=== PATIENT | male | born 1970 | race African-American/Black ===

== ENCOUNTER 2017-08-13 22:06 | Emergency (ER) | payer MEDICAID, SELFPAY ==
[2017-08-13 22:07] VITALS: BP 159/104; PULSE 101; RESP 24; TEMP 36.4; O2SAT 95; BMI 29.1
--- NOTE | 2017-08-13 22:13 | NURSING ---
CALLED FOR EKG
--- NOTE | 2017-08-13 22:20 | EKG12_ITS ---
Test Reason : Blood Pressure : / mmHG Vent. Rate : 087 BPM Atrial Rate : 087 BPM P-R Int : 130 ms QRS Dur : 088 ms QT Int : 422 ms P-R-T Axes : 055 009 048 degrees QTc Int : 507 ms Normal sinus rhythm Biatrial enlargement Left ventricular hypertrophy Prolonged QT Abnormal ECG Confirmed by KARAN HART, TALIB ([id number]), order editor JOLENE KING ([id number]) on 08/14/2017 1:55:32 PM Referred By: JOSEP Confirmed By:TALIB RUSSO MD
[2017-08-13 22:30] VITALS: BP 137/109; PULSE 89; RESP 18; O2SAT 98
--- NOTE | 2017-08-13 22:50 | RAD_ITS ---
STUDY: X-RAY CHEST REASON FOR EXAM: Male, 46 years old. Asthma attack TECHNIQUE: PA and lateral COMPARISON: 03/16/2014 FINDINGS: Lungs are expanded. There are mild chronic appearing fibrotic changes. There are NO active infiltrates. There is NO pleural effusion. There is NO pneumothorax. Normal size heart. Normal mediastinum and sydnee. Normal visualized pulmonary arteries. Normal visualized aortic arch and descending thoracic aorta. Normal visualized thoracic spine. Normal visualized ribs, clavicles, and shoulders. There is no demonstrated abnormality of the visualized soft tissue structures of the upper abdomen. RAD/Chest PA and Lateral IMPRESSION: Lungs are expanded. There are mild chronic appearing fibrotic changes. There are NO active infiltrates. There is NO pleural effusion. There is NO pneumothorax. Normal size heart. Electronically Signed: Derrick Rosado MD at 0:18 EST , Service support ,
[2017-08-13] MEDS: Ipratropium/Albuterol Sulfate 3 ML AMPUL.NEB INHALATION (23:17)
[2017-08-13] MEDS: Albuterol 2.5 MG/3 ML VIAL.NEB. INHALATION ×2 (23:17)
[2017-08-13 23:18] VITALS: PULSE 103; RESP 18
[2017-08-13 23:45] VITALS: PULSE 99; RESP 16
[2017-08-14 00:06] VITALS: BP 154/113; PULSE 83; RESP 20; O2SAT 100
[2017-08-14] MEDS: Terbutaline 1 MG/ML Vial 0.25 MG SC (01:12)
[2017-08-14] MEDS: Albuterol 2.5 MG/3 ML VIAL.NEB. INHALATION ×2 (01:13)
[2017-08-14 01:33] VITALS: PULSE 102; RESP 16
--- NOTE | 2017-08-14 01:41 | ED.DCSUM_ITS ---
- ER Visit Summary Date of Service: 08/14/17 Chief Complaint: Shortness of breath History of Present Illness: The patient is a 46 M presenting with 2-3 days of occasionally productive cough, rhinorrhea, chest tightness and wheezing. He has a long-standing history of asthma but has rare flareups, mainly when he gets ill. States he has not had a flareup like this since he was a kid. Denies any fevers or myalgias or headache. No GI symptoms. Has no inhalers at home. Physical Examination: No acute distress, afebrile, not hypoxic. Slight tachycardia. Slight expiratory wheezes in the bases, no rales rhonchi. No respiratory distress. Heart is regular. No cervical lymphadenopathy. TMs normal bilaterally. Posterior oropharynx is clear. No rashes. No pedal edema. Test Results: Chest x-ray normal. Influenza negative. Emergency Department Course and Treatment: After an initial round of nebulizer treatments, he felt slightly better. His wheezing is improved. He was given another couple albuterol treatments as well as an injection of terbutaline 0.25 mg subcutaneous. On reevaluation he is much more comfortable and is able to sleep. They are comfortable going home. Given prednisone 40 mg and a prescription for a short burst as well as an MDI. Treatment Plan: Supportive for what is likely viral in etiology Disposition: Discharge home Impression: Acute asthmatic bronchitis This note was generated with [employer] dictation software. It may contain incorrect words, spelling, and punctuation that were not noted in review of the chart prior to signing ED Disposition - Plan for ED Patient: Disposition: Home or Assisted Living Chief Complaint: Asthma Instructions: ED Bronchitis Asthmatic Prescriptions: Albuterol Inhaler [Ventolin Hfa] 1 - 2 puff INHALATION Q4H PRN PRN #1 inhaler PRN Reason: Wheezing Prednisone [Deltasone] 40 mg PO DAILY #10 tab Referrals: [facility] Doctor,Out of [Primary Care Provider] - 1 Week if not improving
[2017-08-14 01:55] VITALS: BP 145/97; PULSE 88; RESP 20; O2SAT 99
== END 2017-08-14 01:56 | disposition home or self-care (01) ==
PROVIDERS: Emergency Provider Emergency Medicine
DX: J45.909 Unspecified asthma, uncomplicated (principal)
CPT/HCPCS: 71046; 87804; 93005; 94640; 99283

== ENCOUNTER 2017-08-22 00:23 | Emergency (ER) | payer MEDICAID, SELFPAY ==
[2017-08-22] VITALS (7 sets, daily range): BP systolic 120–141; BP diastolic 89–99; PULSE 91–112; RESP 12–30; TEMP 36.6–36.7; O2SAT 98–100; BMI 29.8
--- NOTE | 2017-08-22 00:48 | RAD_ITS ---
STUDY: X-RAY CHEST REASON FOR EXAM: Male, 46 years old. SOB TECHNIQUE: Single frontal view of the chest. 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 There is no demonstrated pleural abnormality. Stable cardiac silhouette. Normal mediastinum and sydnee. Normal visualized pulmonary arteries. Normal visualized aortic arch and descending thoracic aorta. Normal visualized thoracic spine. Lumbar fusions. Normal visualized ribs, clavicles, and shoulders. There is no demonstrated abnormality of the visualized soft tissue structures of the upper abdomen. 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 Electronically Signed: Zana Baldwin MD at 1:56 EST Tel , Service support ,
--- NOTE | 2017-08-22 00:48 | EKG12_ITS ---
Test Reason : SOB Blood Pressure : / mmHG Vent. Rate : 092 BPM Atrial Rate : 092 BPM P-R Int : 126 ms QRS Dur : 098 ms QT Int : 382 ms P-R-T Axes : 052 002 065 degrees QTc Int : 472 ms Normal sinus rhythm Left ventricular hypertrophy Nonspecific T wave abnormality Prolonged QT Abnormal ECG Confirmed by TASHI LARKIN ([id number]), newspaper copy editor JOLENE KING ([id number]) on 08/23/2017 2:51:36 PM Referred By: AMBER Confirmed By:TASHI LARKIN
[2017-08-22 01:09] LABS: Absolute Lymphocyte Count 2.65 X10^3/ul (0.83-4.51); Absolute Neutrophil Count 3.6 X10^3/uL (2.0-7.7); Basophil# 0.07 X10^3/uL; Basophil% 0.9 % (0-1); Eosinophils% 2.7 % (0-5); Hematocrit 42.6 % (40-54); Hemoglobin 14.3 g/dl (13.0-16.5); Lymphocyte # 2.65 X10^3/ul (4.0); Lymphocyte % 35.5 % (19-41); Mean Corp Hgb Conc 33.6 g/gl (32-36); Mean Corpuscular Hgb 28.8 pg (27.0-32.0); Mean Corpuscular Volume 85.7 fL (80-94); Mean Platelet Vol. 10.7 fl (6.2-12.0); Monocyte% 12.1 % (0-10); Neutrophil # 3.61 X10^3/uL (2.7-7.7); Neutrophil % 48.4 % (47-70); Platelet Count 265 K/mm3 (150-450); RBC Distribution Width CV 14.9 % (11.6-14.6); RBC Distribution Width SD 46.3 fl (35.1-43.9); Red Blood Count 4.97 M/mm3 (4.6-6.2); White Blood Count 7.5 K/mm3 (4.4-11.0)
[2017-08-22 01:11] LABS: POSITIVE COUNT NO; POSITIVE DIFFERENTIAL NO; POSITIVE MORPHOLOGY NO
[2017-08-22] MEDS: Ipratropium/Albuterol Sulfate 3 ML AMPUL.NEB INHALATION (01:13)
[2017-08-22 01:21] LABS: D-Dimer Quantitative (DVT/PE) 0.38 FEU/ug/m (0.27-0.49)
[2017-08-22 01:29] LABS: Anion Gap 8 (5-15); BUN 13 mg/dL (7-18); Calcium,Total 8.8 mg/dL (8.5-10.1); Chloride 106 mmol/L (98-107); EST Glomerular Filtration Rate 85 mL/min (>60); Est Glom Filt Rate - Afr Amer 103 mL/min (>60); Estimated Creatinine Clearance 100.23 ml/min; Glucose 97 mg/dL (74-106); Potassium 3.8 mmol/L (3.5-5.1); Sodium Level 140 mmol/L (136-145)
[2017-08-22] MEDS: MethylPREDNISolone 125 MG/2 ML Vial IV (02:26)
--- NOTE | 2017-08-22 03:01 | ED.VISSUMM ---
- ER Visit Summary Date of Service: 08/22/17 Chief Complaint: Dyspnea History of Present Illness: The patient is a 46 M worsening dyspnea over the past couple days. History of asthma. States was treated for asthma exacerbation finish his steroids when symptoms recurred. Mild productive cough. Complains of chills and sweats. States mild blood with cough today. No recent travel, surgeries, or immobilizations. No history of PE or DVT. Tobacco history. Denies headache or myalgias. Denies chest pain. Physical Examination: General: Alert and oriented ?3, no acute distress HEENT: Normocephalic, atraumatic. Moist mucosa membranes Neck: supple, nontender. Cardiovascular: Regular tachycardic rate and rhythm, no murmurs Respiratory: Diminished breath sounds, no respiratory distress Abdomen: Soft, nontender, nondistended Extremities: Nontender, no edema, pulses intact ?4 Neuro: no focal neurological deficits. Test Results: EKG: Sinus rate of 92, no ST changes. Isolated T-wave inversion in aVL. Emergency Department Course and Treatment: Patient tachycardic on exam, EKG was normal. Chest x-ray negative. Patient's recurrent worsening symptoms and complaints of hemoptysis with tachycardia, low risk Wells criteria for PE. D-dimer obtained which was negative. Basic labs and troponin negative. He is given aerosol treatments. Solu-Medrol started. Vitals are stable pulse ox in the 90s. He is ambulated maintaining pulse ox to 96%. Discussed with patient this time will treat for asthma exacerbation with steroid taper due to recent steroid management. I discussed tobacco cessation with the patient. He will monitor symptoms and follow-up with his PCP. He will return if any worsening symptoms. Treatment Plan: [] Disposition: Discharge Impression: 1. Asthma exacerbation 2. Upper respiratory infection This note was generated with [employer] dictation software. It may contain incorrect words, spelling, and punctuation that were not noted in review of the chart prior to signing ED Disposition - Plan for ED Patient: Disposition: Home or Assisted Living Chief Complaint: Shortness of Breath Diagnosis: Asthma exacerbation, Acute upper respiratory infection Instructions: ED Upper Resp Infec No Abx Tx, Understanding Asthma Triggers Prescriptions: Prednisone [Deltasone] 20 mg PO DAILY #19 tablet Referrals: [facility] Doctor,Out of [Primary Care Provider] - Additional Instructions: Follow-up with Dr. Veras in 3 days.
--- NOTE | 2017-08-22 03:07 | ED.DCSUM_ITS ---
- ER Visit Summary Date of Service: 08/22/17 Chief Complaint: Dyspnea History of Present Illness: The patient is a 46 M worsening dyspnea over the past couple days. History of asthma. States was treated for asthma exacerbation finish his steroids when symptoms recurred. Mild productive cough. Complains of chills and sweats. States mild blood with cough today. No recent travel, surgeries, or immobilizations. No history of PE or DVT. Tobacco history. Denies headache or myalgias. Denies chest pain. Physical Examination: General: Alert and oriented ?3, no acute distress HEENT: Normocephalic, atraumatic. Moist mucosa membranes Neck: supple, nontender. Cardiovascular: Regular tachycardic rate and rhythm, no murmurs Respiratory: Diminished breath sounds, no respiratory distress Abdomen: Soft, nontender, nondistended Extremities: Nontender, no edema, pulses intact ?4 Neuro: no focal neurological deficits. Test Results: EKG: Sinus rate of 92, no ST changes. Isolated T-wave inversion in aVL. Emergency Department Course and Treatment: Patient tachycardic on exam, EKG was normal. Chest x-ray negative. Patient's recurrent worsening symptoms and complaints of hemoptysis with tachycardia, low risk Wells criteria for PE. D- dimer obtained which was negative. Basic labs and troponin negative. He is given aerosol treatments. Solu-Medrol started. Vitals are stable pulse ox in the 90s. He is ambulated maintaining pulse ox to 96%. Discussed with patient this time will treat for asthma exacerbation with steroid taper due to recent steroid management. I discussed tobacco cessation with the patient. He will monitor symptoms and follow-up with his PCP. He will return if any worsening symptoms. Treatment Plan: [] Disposition: Discharge Impression: 1. Asthma exacerbation 2. Upper respiratory infection This note was generated with [employer] dictation software. It may contain incorrect words, spelling, and punctuation that were not noted in review of the chart prior to signing ED Disposition - Plan for ED Patient: Disposition: Home or Assisted Living Chief Complaint: Shortness of Breath Diagnosis: Asthma exacerbation, Acute upper respiratory infection Instructions: ED Upper Resp Infec No Abx Tx, Understanding Asthma Triggers Prescriptions: Prednisone [Deltasone] 20 mg PO DAILY #19 tablet Referrals: [facility] Doctor,Out of [Primary Care Provider] - Additional Instructions: Follow-up with Dr. Veras in 3 days.
== END 2017-08-22 03:25 | disposition home or self-care (01) ==
PROVIDERS: Emergency Provider Emergency Medicine
DX: J45.901 Unspecified asthma with (acute) exacerbation (principal); J06.9 Acute upper respiratory infection, unspecified; Z72.0 Tobacco use
CPT/HCPCS: 71045; 80048; 84484; 85025; 85379; 93005; 94640; 96374; 99284

== ENCOUNTER 2017-09-03 16:51 | Inpatient (IN) | payer MEDICAID, SELFPAY ==
[2017-09-03] VITALS (7 sets, daily range): BP systolic 136–148; BP diastolic 72–93; PULSE 104–122; RESP 16–18; TEMP 36.7–37.2; O2SAT 98–100; BMI 30.7; BMI 29.9
--- NOTE | 2017-09-03 16:59 | RAD_ITS ---
XR Chest 1 View INDICATION: chest pain COMPARISON: None FINDINGS: Heart size and pulmonary vascularity are within normal limits. The lungs are clear without evidence of airspace consolidation or pleural effusion. The osseous structures are grossly unremarkable. RAD/Chest 1 View (Portable) IMPRESSION: No radiographic evidence of acute intrathoracic disease. at 1756 Reported and signed by: Tammy Leahy MD Electronically Signed: Tammy Leahy MD at 16:55 EST Tel , Service support ,
--- NOTE | 2017-09-03 16:59 | EKG12_ITS ---
Test Reason : CHEST PAIN Blood Pressure : / mmHG Vent. Rate : 104 BPM Atrial Rate : 104 BPM P-R Int : 130 ms QRS Dur : 096 ms QT Int : 380 ms P-R-T Axes : 054 016 032 degrees QTc Int : 499 ms Sinus tachycardia Biatrial enlargement Left ventricular hypertrophy Nonspecific T wave abnormality Abnormal ECG Confirmed by MARITZA HART, ALEAH ([id number]), publication editor JOLENE KING ([id number]) on 09/04/2017 2:39:21 PM Referred By: SHAKEEL Confirmed By:ALEAH SALAS MD
[2017-09-03 17:27] LABS: Absolute Lymphocyte Count 2.85 X10^3/ul (0.83-4.51); Absolute Neutrophil Count 4.8 X10^3/uL (2.0-7.7); Basophil# 0.01 X10^3/uL; Basophil% 0.1 % (0-1); Eosinophil# 0.07 X10^3/uL; Eosinophils% 0.8 % (0-5); Hematocrit 43.4 % (40-54); Hemoglobin 14.5 g/dl (13.0-16.5); Lymphocyte # 2.85 X10^3/ul (4.0); Lymphocyte % 33.6 % (19-41); Mean Corp Hgb Conc 33.4 g/gl (32-36); Mean Corpuscular Hgb 28.5 pg (27.0-32.0); Mean Corpuscular Volume 85.4 fL (80-94); Mean Platelet Vol. 9.9 fl (6.2-12.0); Monocyte# 0.73 X10^3/uL; Monocyte% 8.6 % (0-10); Neutrophil % 56.7 % (47-70); Platelet Count 247 K/mm3 (150-450); RBC Distribution Width CV 15.2 % (11.6-14.6); RBC Distribution Width SD 47.9 fl (35.1-43.9); Red Blood Count 5.08 M/mm3 (4.6-6.2); White Blood Count 8.5 K/mm3 (4.4-11.0)
[2017-09-03 17:30] LABS: POSITIVE COUNT NO; POSITIVE DIFFERENTIAL NO; POSITIVE MORPHOLOGY NO
--- NOTE | 2017-09-03 17:45 | ED.DCSUM_ITS ---
- ER Visit Summary Date of Service: 09/03/17 Chief Complaint: Shortness of breath History of Present Illness: The patient is a 46 M significant past medical history. Patient states she has been short of breath primarily lying flat for the last 2-3 weeks. He is also had a cough. He was seen by Dr. Garcia and sent over to see Dr. Mercedes who did a echocardiogram today in his office called the ER and explained to me the patient had a cardiomyopathy and significant mitral insufficiency mitral regurgitation. He also had mild failure and had an ejection fraction of only 30%. Patient states he has never noted any cardiac history in the past he was treated for hypertension and is also he had a history of asthma in the past. He denies hemoptysis. He denies any leg swelling. He has shortness of breath worse lying flat or with exertion. Physical Examination: No aged male. Vital signs stable pulse ox 90% room air no signs of hypoxia he is mildly tachycardic at 104. He does not look septic or toxic. Sitting up in bed is in no distress. H EENT exam is unremarkable. Neck nontender no JVD. Lungs clear to auscultation bilaterally. Currently I do not hear rales rhonchi or wheezing. Heart tachycardic about 100-110 I do not appreciate a murmur at this time. Abdomen is soft and nontender. Normal bowel sounds no peritoneal signs. He is moving all 4 extremities. Neurovascularly intact. There is no edema or cords. There is no calf tenderness. Neurologic exam is normal. Test Results: CBC normal. H&H of 14 and 43. BMP unremarkable. Troponin normal. BNP 211. Chest x-ray no acute abnormality. No significant signs of an enlarged heart or failure. EKG is a sinus tachycardia rate of 104 with biatrial enlargement and LVH. Unchanged from prior EKG. Emergency Department Course and Treatment: Repeat exam no change at 1833. Treatment Plan: Shelf the hospitalist patient be admitted for further evaluation for orthopnea and dyspnea with valvular heart disease and cardiomyopathy. Disposition: Admission Impression: Dyspnea and orthopnea secondary to mitral valve insufficiency, cardiomyopathy and R/o CHF This note was generated with [employer] dictation software. It may contain incorrect words, spelling, and punctuation that were not noted in review of the chart prior to signing ED Disposition - Plan for ED Patient: Chief Complaint: Chest Pain Referrals: [facility] Doctor,Out of [NON-STAFF] -
[2017-09-03 18:16] LABS: Anion Gap 8 (5-15); BUN 9 mg/dL (7-18); BUN/Creat Ratio 8.9 RATIO (10-20); Calcium,Total 9.3 mg/dL (8.5-10.1); Chloride 104 mmol/L (98-107); Creatinine, Serum 1.01 mg/dL (0.70-1.30); EST Glomerular Filtration Rate 84 mL/min (>60); Est Glom Filt Rate - Afr Amer 102 mL/min (>60); Estimated Creatinine Clearance 99.24 ml/min; Glucose 106 mg/dL (74-106); Potassium 3.7 mmol/L (3.5-5.1); Sodium Level 140 mmol/L (136-145)
[2017-09-03 18:24] LABS: BNP,B-Type NATRIURETIC PEPTIDE 211.4 pg/mL (0-100)
--- NOTE | 2017-09-03 18:55 | PCM.HP.STD ---
Problem List (1) Acute systolic CHF (congestive heart failure) Status: Acute (2) Cardiomyopathy Status: Acute (3) Alcohol abuse Status: Chronic (4) Tobacco abuse Status: Chronic (5) Hypertension Status: Chronic History of Present Illness Date of Admission: 09/03/17 Chief Complaint: Shortness of breath. The patient is a 46 year old M with past medical history as mentioned above was referred to the emergency room today by Dr. Mercedes, the movement therapist, for shortness of breath that has been going on for more than a month and he was found to have low ejection fraction on echocardiogram that was done today at [facility]. According to the patient, he has been complaining of exertional shortness of breath for more than 1 month, has been progressive, initially was with moderate to minimal exertion but lately, has been even at rest, associated with orthopnea and paroxysmal nocturnal dyspnea as well as dry cough and sometimes with blood-tinged sputum, this shortness of breath relieved by rest and exaggerated by activity. Lately, he has not been able to sleep flat because he is scared and he felt that he is drowning. Also, he complained of chest tightness that has been going on for almost 3-4 weeks. He mentioned that back in June,, he had flulike symptoms that lasted for a few days without any complications. He had a history of hypertension and he was started on a blood pressure pill by his PCP few years ago but he does not take it anymore for the last couple of years. Reportedly, patient saw Dr. Alonso today who did a bedside echocardiogram and he was found to have cardiomyopathy, ejection fraction of 30% and mitral regurgitation. He drinks alcohol daily, he drinks about 2 beers every day for many years. He smokes every day since he was 15 years old. In the emergency room, was dyspneic and tachypneic, heart rate was around 100, blood pressure slightly elevated, pulse ox is 98% on room air. His routine blood work is unremarkable. His EKG revealed sinus tachycardia with signs of LVH. Troponin is negative. BNP is elevated at 211. Chest x-ray revealed probable mild bilateral pulmonary vascular congestion. He is being admitted for acute systolic CHF, cardiac myopathy with ejection fraction of 30% and mitral regurgitation. Past Medical History Past Medical History (Chronic Problems): Chronic Problems Alcohol abuse (Chronic) Tobacco abuse (Chronic) Hypertension (Chronic) Allergies No Known Allergies Allergy (Verified 09/03/17 16:59) Home Medications: Ambulatory Orders Medication Instructions Recorded Albuterol Inhaler [Ventolin Hfa] 1 - 2 puff INHALATION Q4H PRN PRN 08/14/17 #1 inhaler Prednisone [Deltasone] 20 mg PO DAILY #19 tablet 08/22/17 Surgical History: tonsillectomy, - - Back surgery ?3. Psychiatric History: No pertinent psych hx Lives: Spouse/ Significant Other Smoking Status: Current every day smoker Alcohol: Heavy Drugs: None - *Family History Maternal History Items: No pertinent history Paternal History Items: Heart Disease Review of Systems Constitutional: Reports: Weakness. Denies: Anorexia, Chills, Fever Eyes: Denies: Blurred vision, Double vision, Drainage, Redness HEENT: Denies: Difficulty Hearing, Ear Pain, Eye Pain, Nasal Congestion, Sore Throat Cardiovascular: Reports: Chest Tightness, Orthopnea, Paroxysmal Noc. Dyspnea. Denies: Chest Pain, Edema, Heaviness, Light Headedness, Palpitations, Syncope Respiratory: Reports: Cough, Shortness of Breath, Shortness of breath at rest, Shortness of breath upon exertion, Sputum production. Denies: Hemoptysis, Pleuritic Pain, Wheezing Gastrointestinal: Denies: Abdominal Pain, Constipation, Diarrhea, Nausea, Vomiting Genitourinary: Denies: Dysuria, Frequency, Hematuria Musculoskeletal: Denies: Arm Pain, Back Pain, Foot Pain Skin: Denies: Dryness, Rash Neurological: Denies: Balance problems, Double vision, Change in Speech, Slurred speech, Confusion, Difficulty swallowing, Focal weakness, Headaches, Incoordination, Numbness Psychiatric: Denies: Anxiety, Depression Endocrine: Denies: Change in Body Habitus, Polydipsia VTE Information - Inpt Only VTE Present on Admission: No VTE Mechan Device Prophylaxis: None VTE Pharm Prophylaxis ordered?: No Patient Problems: Active and Suspected Problems Acute systolic CHF (congestive heart failure) (Acute) Cardiomyopathy (Acute) - Physical Exam General: Alert, Oriented x3, Cooperative, - - He is dyspneic and tachypneic. HEENT: Atraumatic, PERRLA, EOMI Oral: Moist Mucosa, No Gingival or Mucosal Lesions/ Ulcerations Neck: Supple, No JVD, Negative Carotid Bruits, Trachea Midline, Thyroid Normal Size and Texture Lungs: No rhonchi, No wheeze, No rales, Diminished, - - Decreased breath sounds bilateral, more at the bases, otherwise clear. Cardiovascular: Regular rate, Regular Rhythm, Normal S1, Normal S2, PMI Normal, Tachycardic Abdomen: Bowel Sounds Present, Soft, Non Tender, Non-Distended, No Hepato-splenomegaly Extremities: No clubbing, No cyanosis, No edema Skin: No rashes, No breakdown Lymphatic: No Cervical, Supraclavicular, or Inguinal Adenopathy Neurological: Cranial nerves II-XII grossly intact, Motor Exam 5/5 strength throughout Psych/Mental Status: Normal Affect, Appropriate, Alert and oriented to time, place, person, mood and affect Vital Signs Temp Pulse Resp BP Pulse Ox 99 F 108 H 18 148/72 H 100 09/03/17 16:52 09/03/17 18:43 09/03/17 18:43 09/03/17 18:43 09/03/17 18:43 Oxygen Flow Rate (L/min) 2 Oxygen Delivery Method Room Air Weight: 226 lb 3.108 oz Body Mass Index (BMI) 30.7 Laboratory Tests Past 24 Hrs 09/03/17 09/03/17 09/03/17 17:15 17:15 17:35 WBC 8.5 RBC 5.08 Hgb 14.5 Hct 43.4 MCV 85.4 MCH 28.5 MCHC 33.4 RDW 15.2 H RDW Differential 47.9 H Plt Count 247 MPV 9.9 Immature Gran % (Auto) 0.200 Neut % (Auto) 56.7 Lymph % (Auto) 33.6 Chambers % (Auto) 8.6 Eos % (Auto) 0.8 Baso % (Auto) 0.1 Absolute Neuts (auto) 4.8 Absolute Lymphs (auto) 2.85 Total Counted Not Reportable Sodium Cancelled Potassium Cancelled Chloride Cancelled Carbon Dioxide Cancelled Anion Gap Cancelled BUN Cancelled Creatinine Cancelled Estim Creat Clear Calc Cancelled Est GFR (MDRD) Af Amer Cancelled Est GFR (MDRD) Non-Af Cancelled BUN/Creatinine Ratio Cancelled Glucose Cancelled Calcium Cancelled Troponin I Cancelled B-Natriuretic Peptide 211.4 H 09/03/17 17:35 WBC RBC Hgb Hct MCV MCH MCHC RDW RDW Differential Plt Count MPV Immature Gran % (Auto) Neut % (Auto) Lymph % (Auto) Chambers % (Auto) Eos % (Auto) Baso % (Auto) Absolute Neuts (auto) Absolute Lymphs (auto) Total Counted Sodium 140 Potassium 3.7 Chloride 104 Carbon Dioxide 28.0 Anion Gap 8 BUN 9 Creatinine 1.01 Estim Creat Clear Calc 99.24 Est GFR (MDRD) Af Amer 102 Est GFR (MDRD) Non-Af 84 BUN/Creatinine Ratio 8.9 L Glucose 106 Calcium 9.3 Troponin I 0.02 B-Natriuretic Peptide Clinical Impression(s) from Imaging Studies Chest X-Ray 09/03/17 16:59 IMPRESSION: No radiographic evidence of acute intrathoracic disease. at 1756 Reported and signed by: Tammy Leahy MD Electronically Signed: Tammy Leahy MD at 16:55 EST Tel , Service support , Assessment/Plan Active and Suspected Problems Acute systolic CHF (congestive heart failure) (Acute) Cardiomyopathy (Acute) This is a 46 years old male patient referred to the emergency room by Dr. Mercedes because of shortness of breath, cardiomyopathy, low ejection fraction and mitral regurgitation and he was found to have acute new onset systolic CHF. #1 acute new onset systolic CHF: This is based on symptoms of shortness of breath, orthopnea, PND, elevated BNP as well as chest x-ray findings. Reportedly, his echocardiogram revealed ejection fraction of 30% with reported severe mitral regurgitation. Plan: Admit to PCU, cardiac monitoring, serial cardiac enzymes, repeat EKG tomorrow morning, 2D echocardiogram, IV Lasix for diuresis, cardiology consult, start baby aspirin, Coreg twice daily, lisinopril, albuterol as needed, incentive spirometer. #2 cardiomyopathy: Reportedly, ejection fraction is 30%. There is no obvious etiology for this cardiomyopathy. Patient did mention that he had flulike symptoms in June, but was not too bad. He drinks alcohol every day and this is could be other predisposing factor. He does have history of hypertension and he supposed to take one blood pressure pill but he is not for the last couple of years. Denied personal history of CAD. Plan: Serial cardiac enzymes, EKG tomorrow morning, 2D echocardiogram, cardiology consult. #3 mitral regurgitation: Again, this is reported by the ER physician according to Dr. Mercedes. It is severe mitral regurgitation. Another possible etiology of the cardiomyopathy is the valvular heart disease. Plan for 2D echocardiogram as above. #4 hypertension: Patient was on blood pressure pill few years ago but stopped taking it for the last couple of years. At this time, blood pressure slightly elevated, plan to start him on Coreg twice daily, lisinopril. #5 alcohol abuse: Thiamine and folic acid supplement, Ativan as needed, CIWA protocol. #6 tobacco abuse: NicoDerm patch if desired. #7 DVT prophylaxis: Low risk patient, no prophylaxis indicated. This note was generated with [employer] software. It may contain incorrect words, spelling, and punctuation that were not noted in checking the note before signing. Code Visit Inpatient E&M: 63956 Init Hosp L3
[2017-09-03 19:16] LABS: Prothrombin Time (Protime)PT. 13.4 SECONDS (11.7-14.9)
[2017-09-03 20:15] LABS: Magnesium 2.3 mg/dL (1.6-2.6); Thyroid Stim Hormone (TSH) 1.64 uIU/mL (0.358-3.74)
[2017-09-03] MEDS: Furosemide 40 MG/4 ML Vial IV (22:35)
[2017-09-03] MEDS: Carvedilol 6.25 MG Tablet PO (22:35)
[2017-09-03] MEDS: 0.9% NaCl Peripheral Flush Adult/Peds IV (22:36)
[2017-09-04] VITALS (13 sets, daily range): BP systolic 101–143; BP diastolic 55–103; PULSE 80–95; RESP 16–20; TEMP 36.5–37.1; O2SAT 95–100
--- NOTE | 2017-09-04 01:05 | NURSING ---
Pt. requesting respiratory treatment. RT notified.
[2017-09-04] MEDS: Albuterol 2.5 MG/3 ML VIAL.NEB. INHALATION ×2 (01:13→15:19)
--- NOTE | 2017-09-04 05:55 | EKG12_ITS ---
Test Reason : AM EKG Blood Pressure : / mmHG Vent. Rate : 090 BPM Atrial Rate : 090 BPM P-R Int : 126 ms QRS Dur : 098 ms QT Int : 412 ms P-R-T Axes : 049 -07 033 degrees QTc Int : 504 ms Normal sinus rhythm Biatrial enlargement Left ventricular hypertrophy Confirmed by MARITZA HART, ALEAH ([id number]), story editor JOLENE KING ([id number]) on 09/07/2017 3:24:13 PM Referred By: DR SINGH Confirmed By:ALEAH SALAS MD
[2017-09-04] MEDS: Furosemide 40 MG/4 ML Vial IV ×3 (06:46→22:03)
--- NOTE | 2017-09-04 07:35 | CON.PCM_ITS ---
Reason for Consult Date of Consultation: 09/04/17 Reason for Consultation: Shortness of breath. History of Present Illness: The patient is a 46 year old M with past medical history as mentioned above was referred to the emergency room today by Dr. Mercedes, the rehabilitation services aide, for shortness of breath that has been going on for more than a month and he was found to have low ejection fraction on echocardiogram that was done today at [facility]. According to the patient, he has been complaining of exertional shortness of breath for more than 1 month, has been progressive, initially was with moderate to minimal exertion but lately, has been even at rest, associated with orthopnea and paroxysmal nocturnal dyspnea as well as dry cough and sometimes with blood-tinged sputum, this shortness of breath relieved by rest and exaggerated by activity. Lately, he has not been able to sleep flat because he is scared and he felt that he is drowning. Also, he complained of chest tightness that has been going on for almost 3-4 weeks. He mentioned that back in June,, he had flulike symptoms that lasted for a few days without any complications. He had a history of hypertension and he was started on a blood pressure pill by his PCP few years ago but he does not take it anymore for the last couple of years. Reportedly, patient saw Dr. Alonso today who did a bedside echocardiogram and he was found to have cardiomyopathy, ejection fraction of 30% and mitral regurgitation. He drinks alcohol daily, he drinks about 2 beers every day for many years. He smokes every day since he was 15 years old. In the emergency room, was dyspneic and tachypneic, heart rate was around 100, blood pressure slightly elevated, pulse ox is 98% on room air. His routine blood work is unremarkable. His EKG revealed sinus tachycardia with signs of LVH. Troponin is negative. BNP is elevated at 211. Chest x-ray revealed probable mild bilateral pulmonary vascular congestion. He was treated with intravenous Lasix and this morning appears to be doing much better. He still however has some mild orthopnea. Cardiology was called to evaluate him and make further recommendations. ] Past Medical History Allergies/Adverse Reactions: Allergies No Known Allergies Allergy (Verified 09/03/17 16:59) Home Medications: Ambulatory Orders Medication Instructions Recorded Albuterol Inhaler [Ventolin Hfa] 1 - 2 puff INHALATION Q4H PRN PRN 02/13/18 #1 inhaler Prednisone [Deltasone] 20 mg PO DAILY #19 tablet 08/22/17 Past Medical History (Chronic Problems): Chronic Problems Alcohol abuse (Chronic) Tobacco abuse (Chronic) Hypertension (Chronic) Surgical History: tonsillectomy, - - Back surgery ?3. Psychiatric History: No pertinent psych hx - *Family History Maternal History Items: No pertinent history Paternal History Items: Heart Disease Lives: Spouse/ Significant Other Smoking Status: Current every day smoker Alcohol: Heavy Drugs: None Review of Systems - Review of Systems General: Reports: Fatigue. Denies: Fever, Night Sweats Cardiovascular: Reports: Chest Discomfort, Shortness of Breath, Shortness of Breath at Rest, Shortness of Breath with Exertion, Orthopnea, Palpitations. Denies: PND, Peripheral Edema, Lightheadedness, Dizziness, Near Syncope, Syncope Respiratory: Reports: Cough, Hemoptysis, Wheezing. Denies: Sputum Production Gastrointestinal: Denies: Hematemesis, Hematochezia, Melena Genitourinary: Denies: Dysuria, Hematuria Skin: Denies: Rash Subjectve: Pleasant gentleman in no apparent distress at this time Objective: Vital Signs Temp Pulse Resp BP Pulse Ox 97.9 F 93 20 H 143/103 H 99 09/04/17 06:37 09/04/17 06:37 09/04/17 06:37 09/04/17 06:37 09/04/17 06:37 Oxygen Flow Rate (L/min) 2 Oxygen Delivery Method Room Air Weight: 220 lb 7.396 oz Body Mass Index (BMI) 29.9 Intake and Output for Last 24 Hours 09/02/17 09/03/17 09/04/17 23:59 23:59 23:59 Intake Total 220 / 220 120 / 120 Output Total 800 / 800 2500 / 2500 Balance -580 / -580 -2380 / -2380 General: Awake, Alert, Oriented x 3 HEENT: PERRL, EOMI, Sclera Non Icteric Neck: Supple, Good ROM, No Lymph Node Enlargement Lungs: Clear to auscultation Cardiovascular: Regular Rhythm, Normal S1, Normal S2, No Rubs, No Gallops, Positive S3 Murmur Murmur: Grade 1/6, Early Systolic, [place] Vascular: No Carotid Bruits, Normal Femoral Pulses, Normal Radial Pulses, Normal Dorsalis Pedal Pulse, Normal Posterior Tibial Pulses Abdomen: Bowel Sounds Present, Soft, Non Tender, No HSM, No Organomegaly Extremities: No Cyanosis, No Clubbing, No edema Neurological: No Focal Motor or Sensory Deficit Psych/Mental Status: Appropriate 09/03/17 21:09: Troponin I 0.02 09/04/17 01:51: Troponin I 0.03 Rhythm: EKG: Normal sinus rhythm Assessment/Plan 1. Congestive heart failure-acute systolic It appears to have presented with congestive heart failure from his signs and symptoms. He apparently had an echocardiogram which demonstrated reduced ejection fraction. This will be repeated and confirmed. In the meantime he is being treated with intravenous Lasix to which she has responded adequately and beta blockers and CAITLYN inhibitors have also been added. Ultimately he may need a right and left heart catheterization to exclude coronary artery disease as a potential etiology. It is likely that this is secondary to hypertensive heart disease as well as alcohol. 2. Valvular heart disease Appears to have mitral regurgitation but with a very soft murmur. This will be further quantified with an echocardiogram. It is likely that this is secondary to annular dilatation. Depending on the findings of the echocardiogram as well as the heart catheterization later on guidance will be made as to whether he would need to undergo valve surgery. 3. Dilated cardiomyopathy Etiology of the above is not clear at this time but will be defined as we go on. Beta blockers and CAITLYN inhibitors will be started. He may need the addition of spironolactone as well. I have already cautioned him about continued alcohol and tobacco use. 4. Hypertension Appears to have untreated uncontrolled hypertension. The contribution of the steroids that he has been on albeit short-term is not known at this time however we will try and wean him off that and start him on antihypertensive therapy. Compliance has been emphasized. 5. Social habits. : Tobacco abuse as well as alcohol have been emphasized and the contribution to his cardiac condition has also been stressed. Thank you for allowing me to participate in the care of your patient. Please don't hesitate to call if any issues arise
[2017-09-04 07:38] LABS: Absolute Lymphocyte Count 1.92 X10^3/ul (0.83-4.51); Absolute Neutrophil Count 3.9 X10^3/uL (2.0-7.7); Basophil# 0.05 X10^3/uL; Basophil% 0.8 % (0-1); Eosinophil# 0.09 X10^3/uL; Eosinophils% 1.4 % (0-5); Hematocrit 49.8 % (40-54); Hemoglobin 16.6 g/dl (13.0-16.5); Lymphocyte # 1.92 X10^3/ul (4.0); Mean Corp Hgb Conc 33.3 g/gl (32-36); Mean Corpuscular Hgb 28.7 pg (27.0-32.0); Mean Platelet Vol. 10.3 fl (6.2-12.0); Monocyte# 0.67 X10^3/uL; Monocyte% 10.1 % (0-10); Neutrophil # 3.87 X10^3/uL (2.7-7.7); Neutrophil % 58.5 % (47-70); POSITIVE COUNT NO; POSITIVE DIFFERENTIAL NO; POSITIVE MORPHOLOGY NO; Platelet Count 258 K/mm3 (150-450); RBC Distribution Width CV 15.2 % (11.6-14.6); Red Blood Count 5.79 M/mm3 (4.6-6.2); White Blood Count 6.6 K/mm3 (4.4-11.0)
[2017-09-04 07:50] LABS: Anion Gap 9 (5-15); BUN 13 mg/dL (7-18); BUN/Creat Ratio 11.2 RATIO (10-20); Calcium,Total 9.5 mg/dL (8.5-10.1); Chloride 101 mmol/L (98-107); Cholesterol 207 mg/dL (200); Creatinine, Serum 1.16 mg/dL (0.70-1.30); EST Glomerular Filtration Rate 72 mL/min (>60); Est Glom Filt Rate - Afr Amer 87 mL/min (>60); Estimated Creatinine Clearance 86.41 ml/min; Glucose 119 mg/dL (74-106); High Density Lipoprotein 98 mg/dL; Potassium 3.9 mmol/L (3.5-5.1); Sodium Level 137 mmol/L (136-145); Triglycerides 98 mg/dL; Very Low Density Lipoprotein 20 mg/dL (5-40)
[2017-09-04] MEDS: Carvedilol 6.25 MG Tablet PO ×2 (09:53→22:03)
[2017-09-04] MEDS: Thiamine Hydrochloride 100 MG Tablet PO (09:53)
[2017-09-04] MEDS: Folic Acid 1 MG Tablet PO (09:53)
[2017-09-04] MEDS: Aspirin E.C. 81 MG Tablet PO (09:53)
[2017-09-04] MEDS: Lisinopril 20 MG Tablet PO (09:53)
--- NOTE | 2017-09-04 11:07 | CASEMGMT ---
See CM Assessment Link for details. Intro role of CM to patient in room. He states he is independent, no DME, has transportation to physician appts and no difficulty getting Prescriptions with his [facility] provider. - referral for ETOH abuse. Jaime ABRAHAMN RN ACM
[2017-09-04] MEDS: 0.9% NaCl Peripheral Flush Adult/Peds IV ×2 (14:18→22:03)
--- NOTE | 2017-09-04 15:10 | CHAPLAIN ---
Type of Pastoral Visit _x__ Initial Visit ___ Follow-up Visit ___ On-call Visit ___ General Patient Visit ___ Spiritual Assessment ___ Family Conference ___ Bereavement ___ Rapid Response ___ Code Blue ___ Other (describe below) Pastoral Care Referral From _x__ Patient ___ Family ___ Nurse ___ Physician ___ Environmental Manager ___ Rate Analyst ___ Other (describe below) Sacrament/Intervention _x__ Active listening ___ Anointing ___ Mormonism ___ Bereavement ___ Communion _x__ Latricia exploration ___ _x__ Life review _x__ Prayer ___ Reconciliation ___ Sacrament of Sick _x__ Supportive presence ___ Wedding ___ Other (describe below) Pastoral Comments patient is processing new diagnosis; pt says this has been scary but is working through it and will get through it; pt says his mother taught him about having latricia in God; spouse is with pt and she is emotional as we talk together; spouse welcomes support and prayer too;
--- NOTE | 2017-09-04 15:36 | CASEMGMT ---
According to [facility] website, the following are in-network tertiary facilities: [facility], [place], [facility], [facility], [facility], [facility], [employer], and . Pretty HURLEY CM
--- NOTE | 2017-09-04 16:03 | PCM.PN.HOSP ---
Patient Problems: Active and Suspected Problems Acute systolic CHF (congestive heart failure) (Acute) Cardiomyopathy (Acute) Subjective: CC: Shortness of breath This is a 46-year-old male who presented with shortness of breath and found to have cardiomyopathy, he is receiving IV Lasix and he reports feeling better today. Vitals/I&O's: Vital Signs Temp Pulse Resp BP Pulse Ox 98.0 F 87 20 H 122/69 H 95 09/04/17 15:13 09/04/17 15:52 09/04/17 15:52 09/04/17 15:13 09/04/17 15:13 Oxygen Flow Rate (L/min) 2 Oxygen Delivery Method Room Air Weight: 100 kg Body Mass Index (BMI) 29.9 Intake and Output for Last 24 Hours 09/02/17 09/03/17 09/04/17 23:59 23:59 23:59 Intake Total 220 / 220 810 / 810 Output Total 800 / 800 4150 / 4150 Balance -580 / -580 -3340 / -3340 General: Alert, Oriented x3 HEENT: Atraumatic Oral: Moist Mucosa Neck: Supple, No JVD Lungs: Clear to auscultation, No rales Cardiovascular: Regular rate, Normal S1, Normal S2 Abdomen: Bowel Sounds Present, Soft, Non Tender, Non-Distended Extremities: No edema Laboratory Results 09/03/17 21:09: Troponin I 0.02 09/04/17 01:51: Troponin I 0.03 09/04/17 07:25: WBC 6.6, RBC 5.79, Hgb 16.6 H, Hct 49.8, MCV 86.0, MCH 28.7, MCHC 33.3, RDW 15.2 H, RDW Differential 48.0 H, Plt Count 258, MPV 10.3, Immature Gran % (Auto) 0.200, Neut % (Auto) 58.5, Lymph % (Auto) 29.0, [place] % (Auto) 10.1 H, Eos % (Auto) 1.4, Baso % (Auto) 0.8, Absolute Neuts (auto) 3.9, Absolute Lymphs (auto) 1.92, Total Counted Not Reportable 09/04/17 07:25: Sodium 137, Potassium 3.9, Chloride 101, Carbon Dioxide 27.0, Anion Gap 9, BUN 13, Creatinine 1.16, Estim Creat Clear Calc 86.41, Est GFR (MDRD) Af Amer 87, Est GFR (MDRD) Non-Af 72, BUN/Creatinine Ratio 11.2, Glucose 119 H, Calcium 9.5, Troponin I < 0.02, Triglycerides 98, Cholesterol 207 H, LDL Cholesterol 89, VLDL Cholesterol 20, HDL Cholesterol 98 Current Medications Acetaminophen (Tylenol) 650 mg PO Q6H PRN PRN PRN Reason: Mild Pain (scale 0-3)/T>100.7 Albuterol Sulfate (Ventolin Aerosols) 2.5 mg INHALATION Q4H PRN PRN PRN Reason: Shortness of breath, wheezing Last Admin: 09/04/17 15:19 Dose: 2.5 mg Aspirin (Ecotrin) 81 mg PO DAILY@0800 [facility] Last Admin: 09/04/17 09:53 Dose: 81 mg Carvedilol (Coreg) 6.25 mg PO BID [facility] Last Admin: 09/04/17 09:53 Dose: 6.25 mg Folic Acid (Folic Acid) 1 mg PO DAILY@0800 [facility] Last Admin: 09/04/17 09:53 Dose: 1 mg Furosemide (Lasix) 40 mg IV Q8 [facility] Last Admin: 09/04/17 14:20 Dose: 40 mg Sodium Chloride () 1,000 mls @ 0 mls/hr IV .Q0M [facility] PRN Reason: KVO Lisinopril (Zestril) 20 mg PO DAILY [facility] Last Admin: 09/04/17 09:53 Dose: 20 mg Lorazepam (Ativan) 0.5 mg PO Q6H PRN PRN PRN Reason: Alcohol Withdrawal Ondansetron HCl (Zofran) 4 mg IV Q8H PRN PRN PRN Reason: Nausea Sodium Chloride () 5 - 30 ml IV UD PRN PRN Reason: SALINE FLUSH Last Admin: 09/04/17 14:18 Dose: 10 ml Thiamine [facility] ([facility]amin B[facility]) [facility] Last Admin: 09/04/17 09:53 Dose: 100 mg Assessment/Plan Active and Suspected Problems Acute systolic CHF (congestive heart failure) (Acute) Cardiomyopathy (Acute) 1 acute systolic heart failure; continue IV Lasix. 2 . Dilated cardiomyopathy; EF ~30%, etiology unclear, his alcoholism is a possible etiologic factor, he is recommended to quit drinking. CAITLYN inhibitor, Aladrine and Coreg 3. Mitral regurgitation; cardiology's input noted. 4 essential hypertension; is controlled on current agents. 5. alcohol use disorder; I see no evidence of DTs at this time, he is recommended to quit drinking. 6. Nicotine dependency; the patient is recommended to quit smoking, he is on nicotine transdermal patch at this time. 7. early Ambulation for DVT prophylaxis. Code Visit Inpatient E&M: 49801 Subs Hosp L3
--- NOTE | 2017-09-04 16:08 | PN_ITS ---
Patient Problems: Active and Suspected Problems Acute systolic CHF (congestive heart failure) (Acute) Cardiomyopathy (Acute) Subjective: CC: Shortness of breath This is a 46-year-old male who presented with shortness of breath and found to have cardiomyopathy, he is receiving IV Lasix and he reports feeling better today. Vitals/I&O's: Vital Signs Temp Pulse Resp BP Pulse Ox 98.0 F 87 20 H 122/69 H 95 09/04/17 15:13 09/04/17 15:52 09/04/17 15:52 09/04/17 15:13 09/04/17 15:13 Oxygen Flow Rate (L/min) 2 Oxygen Delivery Method Room Air Weight: 100 kg Body Mass Index (BMI) 29.9 Intake and Output for Last 24 Hours 09/02/17 09/03/17 09/04/17 23:59 23:59 23:59 Intake Total 220 / 220 810 / 810 Output Total 800 / 800 4150 / 4150 Balance -580 / -580 -3340 / -3340 General: Alert, Oriented x3 HEENT: Atraumatic Oral: Moist Mucosa Neck: Supple, No JVD Lungs: Clear to auscultation, No rales Cardiovascular: Regular rate, Normal S1, Normal S2 Abdomen: Bowel Sounds Present, Soft, Non Tender, Non-Distended Extremities: No edema Laboratory Results 09/03/17 21:09: Troponin I 0.02 09/04/17 01:51: Troponin I 0.03 09/04/17 07:25: WBC 6.6, RBC 5.79, Hgb 16.6 H, Hct 49.8, MCV 86.0, MCH 28.7, MCHC 33.3, RDW 15.2 H, RDW Differential 48.0 H, Plt Count 258, MPV 10.3, Immature Gran % (Auto) 0.200, Neut % (Auto) 58.5, Lymph % (Auto) 29.0, [place] % ( Auto) 10.1 H, Eos % (Auto) 1.4, Baso % (Auto) 0.8, Absolute Neuts (auto) 3.9, Absolute Lymphs (auto) 1.92, Total Counted Not Reportable 09/04/17 07:25: Sodium 137, Potassium 3.9, Chloride 101, Carbon Dioxide 27.0, Anion Gap 9, BUN 13, Creatinine 1.16, Estim Creat Clear Calc 86.41, Est GFR ( MDRD) Af Amer 87, Est GFR (MDRD) Non-Af 72, BUN/Creatinine Ratio 11.2, Glucose 119 H, Calcium 9.5, Troponin I < 0.02, Triglycerides 98, Cholesterol 207 H, LDL Cholesterol 89, VLDL Cholesterol 20, HDL Cholesterol 98 Current Medications Acetaminophen (Tylenol) 650 mg PO Q6H PRN PRN PRN Reason: Mild Pain (scale 0-3)/T>100.7 Albuterol Sulfate (Ventolin Aerosols) 2.5 mg INHALATION Q4H PRN PRN PRN Reason: Shortness of breath, wheezing Last Admin: 09/04/17 15:19 Dose: 2.5 mg Aspirin (Ecotrin) 81 mg PO DAILY@0800 [facility] Last Admin: 09/04/17 09:53 Dose: 81 mg Carvedilol (Coreg) 6.25 mg PO BID [facility] Last Admin: 09/04/17 09:53 Dose: 6.25 mg Folic Acid (Folic Acid) 1 mg PO DAILY@0800 [facility] Last Admin: 09/04/17 09:53 Dose: 1 mg Furosemide (Lasix) 40 mg IV Q8 [facility] Last Admin: 09/04/17 14:20 Dose: 40 mg Sodium Chloride () 1,000 mls @ 0 mls/hr IV .Q0M [facility] PRN Reason: KVO Lisinopril (Zestril) 20 mg PO DAILY [facility] Last Admin: 09/04/17 09:53 Dose: 20 mg Lorazepam (Ativan) 0.5 mg PO Q6H PRN PRN PRN Reason: Alcohol Withdrawal Ondansetron HCl (Zofran) 4 mg IV Q8H PRN PRN PRN Reason: Nausea Sodium Chloride () 5 - 30 ml IV UD PRN PRN Reason: SALINE FLUSH Last Admin: 09/04/17 14:18 Dose: 10 ml [facility]) [facility] Last Admin: 09/04/17 09:53 Dose: 100 mg Assessment/Plan Active and Suspected Problems Acute systolic CHF (congestive heart failure) (Acute) Cardiomyopathy (Acute) 1 acute systolic heart failure; continue IV Lasix. 2 . Dilated cardiomyopathy; EF ~30%, etiology unclear, his alcoholism is a possible etiologic factor, he is recommended to quit drinking. CAITLYN inhibitor, Aladrine and Coreg 3. Mitral regurgitation; cardiology's input noted. 4 essential hypertension; is controlled on current agents. 5. alcohol use disorder; I see no evidence of DTs at this time, he is recommended to quit drinking. 6. Nicotine dependency; the patient is recommended to quit smoking, he is on nicotine transdermal patch at this time. 7. early Ambulation for DVT prophylaxis. Code Visit Inpatient E&M: 72391 Subs Hosp L3
[2017-09-05] VITALS (18 sets, daily range): BP systolic 96–123; BP diastolic 42–99; PULSE 79–106; RESP 16–18; TEMP 36.3–36.8; O2SAT 94–99
--- NOTE | 2017-09-05 05:55 | EKG12_ITS ---
Test Reason : AM EKG Blood Pressure : / mmHG Vent. Rate : 083 BPM Atrial Rate : 083 BPM P-R Int : 130 ms QRS Dur : 094 ms QT Int : 432 ms P-R-T Axes : 050 001 018 degrees QTc Int : 507 ms Normal sinus rhythm Biatrial enlargement Left ventricular hypertrophy Nonspecific T wave abnormality Prolonged QT Abnormal ECG When compared with ECG of 04-SEP-2017 05:14, MANUAL COMPARISON REQUIRED, DATA IS UNCONFIRMED Confirmed by MARITZA HART, ALEAH ([id number]), editor magazine JOLENE KING ([id number]) on 09/07/2017 3:16:31 PM Referred By: MARY Confirmed By:ALEAH SALAS MD
[2017-09-05] MEDS: Aspirin E.C. 81 MG Tablet PO (05:58)
[2017-09-05] MEDS: Lisinopril 20 MG Tablet PO (05:58)
[2017-09-05] MEDS: Carvedilol 6.25 MG Tablet PO (05:58)
[2017-09-05 07:05] LABS: Red Blood Cells-Urine 0 SEEN /hpf (0-5)
[2017-09-05 07:07] LABS: Color, Urine Yellow (Yellow); Glucose, Dipstick Normal (Normal); Ketone-Dipstick Negative (Negative); Leukocyte Esterase-Dipstick 25 /ul (Negative); Nitrite-Dipstick Negative (Negative); Occult Blood-Urine Negative /ul (Negative); Protein-Dipstick 15 mg/dl (Negative); Urine Bilirubin Dipstick Negative (Negative); Urine Clarity Clear (Clear); Urine Urobilinogen 1 mg/dl (Normal)
[2017-09-05 07:12] LABS: Bacteria RARE /hpf (None Seen); White Blood Cells 0-5 SEEN /hpf (0-5)
[2017-09-05 07:13] LABS: Mucous, Urine RARE /hpf (<or=2+); Squamous Epithelial Cells - UA 0-5 SEEN /hpf (0-5)
[2017-09-05] MEDS: 0.9% NaCl Peripheral Flush Adult/Peds IV ×2 (07:57→13:27)
--- NOTE | 2017-09-05 08:02 | NURSING ---
Called report to lab director at this time. Spoke to MEI Mora.
--- NOTE | 2017-09-05 09:27 | PCM.PN.CARD ---
Subjectve: Patient seen and evaluated. Objective: Vital Signs Temp Pulse Resp BP Pulse Ox 98.1 F 99 18 109/76 97 09/05/17 05:56 09/05/17 06:59 09/05/17 05:56 09/05/17 05:56 09/05/17 07:35 Oxygen Flow Rate (L/min) 2 Oxygen Delivery Method Room Air Weight: 217 lb 13.067 oz Body Mass Index (BMI) 29.9 Intake and Output for Last 24 Hours 09/03/17 09/04/17 09/05/17 23:59 23:59 23:59 Intake Total 220 / 220 960 / 960 250 / 250 Output Total 800 / 800 5175 / 5175 850 / 850 Balance -580 / -580 -4215 / -4215 -600 / -600 General: Awake, Alert, Oriented x 3 HEENT: PERRL, EOMI, Sclera Non Icteric Neck: Supple, Good ROM, No Lymph Node Enlargement Lungs: Clear to auscultation Cardiovascular: Regular Rhythm, Normal S1, Normal S2, No Murmurs, No Rubs, No Gallops Vascular: No Carotid Bruits, Normal Femoral Pulses, Normal Radial Pulses, Normal Dorsalis Pedal Pulse, Normal Posterior Tibial Pulses Abdomen: Bowel Sounds Present, Soft, Non Tender, No HSM, No Organomegaly Extremities: No Cyanosis, No Clubbing, No edema Neurological: No Focal Motor or Sensory Deficit 09/05/17 06:30: Urine Color Yellow, Urine Clarity Clear, Urine pH 6.0, Ur Specific [place] 1.020, Urine Protein 15 H, Urine Glucose (UA) Normal, Urine Ketones Negative, Urine Occult Blood Negative, Urine Nitrite Negative, Urine Bilirubin Negative, Urine Urobilinogen 1 H, Ur Leukocyte Esterase 25 H, Urine RBC 0 SEEN, Urine WBC 0-5 SEEN Rhythm: EKG: ECHO: Stress Test: Cardiac Cath: PCI: CT Surgery: Holter monitor: EPS: PPM: CXR: Chest CT Scan: Assessment/Plan 1. Congestive heart failure-acute systolic It appears to have presented with congestive heart failure from his signs and symptoms. He apparently had an echocardiogram which demonstrated reduced ejection fraction. This will be repeated and confirmed. In the meantime he is being treated with intravenous Lasix to which she has responded adequately and beta blockers and CAITLYN inhibitors have also been added. Underwent a left and right heart catheterization which demonstrated essentially normal coronary arteries. He was noted to have severe left ventricular systolic dysfunction with an estimated ejection fraction of 20%. Patient did have an episode of hypotension which was treated with intravenous fluids dopamine with improvement. The patient would be observed in the Director Public Policy holding area for a while before transporting back to the progressive care unit. 2. Valvular heart disease Appears to have mitral regurgitation but with a very soft murmur. This will be further quantified with an echocardiogram. It is likely that this is secondary to annular dilatation. 3. Dilated cardiomyopathy Etiology of the above is not clear at this time but will be defined as we go on. Beta blockers and CAITLYN inhibitors will be started. He may need the addition of spironolactone as well. I have already cautioned him about continued alcohol and tobacco use. 4. Hypertension Appears to have untreated uncontrolled hypertension. The contribution of the steroids that he has been on albeit short-term is not known at this time however we will try and wean him off that and start him on antihypertensive therapy. Compliance has been emphasized. 5. Social habits. : Tobacco abuse as well as alcohol have been emphasized and the contribution to his cardiac condition has also been stressed. Thank you for allowing me to participate in the care of your patient. Please don't hesitate to call if any issues arise
[2017-09-05 09:51] LABS: Base Excess -3 mmol/L (-2 to +2); Bicarbonate 21.1 mmol/L (22-26); Blood Gas Specimen Type ART; PO2 72 mmHG (75-100); SO2 95 % (95-99); Total Carbon Dioxide 22 mmol/L; pCO2 29.9 mmHg (35-45); pH 7.46 (7.35-7.45)
[2017-09-05 09:51] LABS: Blood Gas Specimen Type VEN; VBG BASE EXCESS 1 mmol/L (-1.0-3.5); VBG Bicarbonate 26 mmol/L (22-26); VBG Oxygen Content 27 mmol/L (23-33); VBG PO2 29 mmHg (25-40); VBG SO2 58 % (50-70); VBG pCO2 38.5 mmHg (41-51); VBG pH 7.43 (7.32-7.42)
[2017-09-05 09:51] LABS: Blood Gas Specimen Type VEN; VBG BASE EXCESS 1 mmol/L (-1.0-3.5); VBG Bicarbonate 25 mmol/L (22-26); VBG Oxygen Content 26 mmol/L (23-33); VBG PO2 29 mmHg (25-40); VBG SO2 57 % (50-70); VBG pCO2 39.3 mmHg (41-51); VBG pH 7.42 (7.32-7.42)
[2017-09-05] MEDS: Thiamine Hydrochloride 100 MG Tablet PO (13:27)
[2017-09-05] MEDS: Furosemide 40 MG/4 ML Vial IV (13:27)
[2017-09-05] MEDS: Folic Acid 1 MG Tablet PO (13:27)
--- NOTE | 2017-09-05 14:01 | PCM.PN.CARD ---
Subjectve: Patient seen and evaluated. Objective: Vital Signs Temp Pulse Resp BP Pulse Ox 97.4 F L 91 16 119/89 H 94 09/05/17 12:40 09/05/17 13:40 09/05/17 13:40 09/05/17 13:40 09/05/17 13:40 Oxygen Flow Rate (L/min) 2 Oxygen Delivery Method Room Air Weight: 217 lb 13.067 oz Body Mass Index (BMI) 29.9 Intake and Output for Last 24 Hours 09/03/17 09/04/17 09/05/17 23:59 23:59 23:59 Intake Total 220 / 220 960 / 960 250 / 250 Output Total 800 / 800 5175 / 5175 850 / 850 Balance -580 / -580 -4215 / -4215 -600 / -600 09/05/17 06:30: Urine Color Yellow, Urine Clarity Clear, Urine pH 6.0, Ur Specific [place] 1.020, Urine Protein 15 H, Urine Glucose (UA) Normal, Urine Ketones Negative, Urine Occult Blood Negative, Urine Nitrite Negative, Urine Bilirubin Negative, Urine Urobilinogen 1 H, Ur Leukocyte Esterase 25 H, Urine RBC 0 SEEN, Urine WBC 0-5 SEEN 09/05/17 08:47: pH 7.46 H, Bicarbonate Actual 21.1 L, POC Total CO2 22, Base Excess -3 L, O2 Saturation 95, ABG pCO2 29.9 L, ABG pO2 72 L 09/05/17 08:58: VBG pH 7.43 H, VBG pO2 29, VBG O2 Sat (Calc) 58, VBG O2 Content 27, VBG Base Excess 1 09/05/17 09:01: VBG pH 7.42, VBG pO2 29, VBG O2 Sat (Calc) 57, VBG O2 Content 26, VBG Base Excess 1 Rhythm: EKG: ECHO: Stress Test: Cardiac Cath: PCI: CT Surgery: Holter monitor: EPS: PPM: CXR: Chest CT Scan:
--- NOTE | 2017-09-05 14:04 | PN.CARD_ITS ---
Subjectve: Patient seen and evaluated. Objective: Vital Signs Temp Pulse Resp BP Pulse Ox 97.4 F L 91 16 119/89 H 94 09/05/17 12:40 09/05/17 13:40 09/05/17 13:40 09/05/17 13:40 09/05/17 13:40 Oxygen Flow Rate (L/min) 2 Oxygen Delivery Method Room Air Weight: 217 lb 13.067 oz Body Mass Index (BMI) 29.9 Intake and Output for Last 24 Hours 09/03/17 09/04/17 09/05/17 23:59 23:59 23:59 Intake Total 220 / 220 960 / 960 250 / 250 Output Total 800 / 800 5175 / 5175 850 / 850 Balance -580 / -580 -4215 / -4215 -600 / -600 09/05/17 06:30: Urine Color Yellow, Urine Clarity Clear, Urine pH 6.0, Ur Specific [place] 1.020, Urine Protein 15 H, Urine Glucose (UA) Normal, Urine Ketones Negative, Urine Occult Blood Negative, Urine Nitrite Negative, Urine Bilirubin Negative, Urine Urobilinogen 1 H, Ur Leukocyte Esterase 25 H, Urine RBC 0 SEEN, Urine WBC 0-5 SEEN 09/05/17 08:47: pH 7.46 H, Bicarbonate Actual 21.1 L, POC Total CO2 22, Base Excess -3 L, O2 Saturation 95, ABG pCO2 29.9 L, ABG pO2 72 L 09/05/17 08:58: VBG pH 7.43 H, VBG pO2 29, VBG O2 Sat (Calc) 58, VBG O2 Content 27, VBG Base Excess 1 09/05/17 09:01: VBG pH 7.42, VBG pO2 29, VBG O2 Sat (Calc) 57, VBG O2 Content 26 , VBG Base Excess 1 Rhythm: EKG: ECHO: Stress Test: Cardiac Cath: PCI: CT Surgery: Holter monitor: EPS: PPM: CXR: Chest CT Scan:
--- NOTE | 2017-09-05 15:36 | CASEMGMT ---
Social Work Assessment Referral Date: 09/04/2017 Date of Assessment: 09/05/2017 Reason for Consult: ETOH abuse Informant: Jen Duran RN CM Personal Status: Mentation: Pt is alert and oriented x4 and presents with pleasant affect as evidenced by smiling and willingness to participate in assessment. Present during assessment: No visitors present and pt willing and able to complete assessment independently. Living Arrangements: Pt reports to live with his and denies any access issues. No DME owned or utilized. Education: High School Diploma. No issues reading or writing. Employment: Pt was last employed in a FT status at [employer] in 2015. 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 States that his also works and they are financially stable and able to meet their basic needs such as housing, food, etc. ADL's: Pt is independent with self care as is his . He reports that she also was diagnosed with MS two years ago, but is being medically managed. Pt and his have access to transportation. Substance Abuse Hx: Alcohol: Yes Methamphetamine: No Tobacco: Yes Prescriptions Drugs: No Marijuana: Yes Heroin: No Cocaine: No Other: Denied Pt reports to currently smokes tobacco. States, but I am going to have to stop. Inquire further and pt reports that he and his both smoke, she smokes more and that they need to quit for health reasons. Offer information on tobacco cessation program through the hospital and pt expresses interest and takes information. Pt does have a hx of smoking marijuana (1 month ago) and also has a hx of alcohol abuse 15 years ago. He reports that he did undergo treatment and does not have issues abstaining at this time. Mental Health Hx: Diagnoses: Denies Stressors: Health SI or HI: Denies Active Plan: Denies Pt denies any mental health diagnoses or symptoms of depression/anxiety. Denies SI or HI. No needs identified Resources: JFS: Medicaid Denies need for additional resources and no additional needs identified. Intervention: Assessment completed to identify needs. Pt partakes in tobacco use daily and provided with education and information on [facility] Tobacco Cessation Program. Pt has not used ETOH in 15 years and no additional needs identified. Pt made aware that SW is available if needs or concerns arise before discharge. Plan: Home with information on [facility] Tobacco Cessation Program. Mihaela Bocanegra, TRACTOR TECHNICIAN, INVESTIGATOR OPERATOR
--- NOTE | 2017-09-05 15:42 | PCM.PN.HOSP ---
Patient Problems: Active and Suspected Problems Acute systolic CHF (congestive heart failure) (Acute) Cardiomyopathy (Acute) Subjective: CC: Dyspnea There with dyspnea and found to have significant cardiomyopathy, he underwent left heart catheterization and he did not reveal any coronary stenosis. Was noted to have significant hypotension following his left heart catheterization, his BP has now stabilized. He denies any dizziness , chest pain , shortness of breath or palpitations. Vitals/I&O's: Vital Signs Temp Pulse Resp BP Pulse Ox 97.4 F L 106 H 16 107/79 99 09/05/17 12:40 09/05/17 14:59 09/05/17 14:39 09/05/17 14:39 09/05/17 14:39 Oxygen Flow Rate (L/min) 2 Oxygen Delivery Method Room Air Weight: 98.8 kg Body Mass Index (BMI) 29.9 Intake and Output for Last 24 Hours 09/03/17 09/04/17 09/05/17 23:59 23:59 23:59 Intake Total 220 / 220 960 / 960 250 / 250 Output Total 800 / 800 5175 / 5175 850 / 850 Balance -580 / -580 -4215 / -4215 -600 / -600 General: Alert, Oriented x3 HEENT: Atraumatic Oral: Moist Mucosa Neck: Supple, No JVD Lungs: Clear to auscultation Cardiovascular: Regular Rhythm, Normal S1, Normal S2 Abdomen: Bowel Sounds Present, Soft, Non Tender, Non-Distended Extremities: No edema Neurological: Cranial nerves II-XII grossly intact, Deep Tendon Reflexes 2+/4 and Symmetrical, Neuro grossly intact, Motor Exam 5/5 strength throughout Laboratory Results 09/05/17 06:30: Urine Color Yellow, Urine Clarity Clear, Urine pH 6.0, Ur Specific [place] 1.020, Urine Protein 15 H, Urine Glucose (UA) Normal, Urine Ketones Negative, Urine Occult Blood Negative, Urine Nitrite Negative, Urine Bilirubin Negative, Urine Urobilinogen 1 H, Ur Leukocyte Esterase 25 H, Urine RBC 0 SEEN, Urine WBC 0-5 SEEN, Ur Squamous Epith Cells 0-5 SEEN, Urine Bacteria RARE, Urine Mucus RARE 09/05/17 08:47: Specimen Type ART, pH 7.46 H, Bicarbonate Actual 21.1 L, POC Total CO2 22, Base Excess -3 L, O2 Saturation 95, ABG pCO2 29.9 L, ABG pO2 72 L 09/05/17 08:58: Specimen Type JAIRON, VBG pH 7.43 H, VBG pO2 29, VBG O2 Sat (Calc) 58, VBG O2 Content 27, VBG Base Excess 1, POC Mix VBG pCO2 Pt Tmp 38.5 L 09/05/17 09:01: Specimen Type JAIRON, VBG pH 7.42, VBG pO2 29, VBG O2 Sat (Calc) 57, VBG O2 Content 26, VBG Base Excess 1, POC Mix VBG pCO2 Pt Tmp 39.3 L Current Medications Acetaminophen (Tylenol) 650 mg PO Q6H PRN PRN PRN Reason: Mild Pain (scale 0-3)/T>100.7 Albuterol Sulfate (Ventolin Aerosols) 2.5 mg INHALATION Q4H PRN PRN PRN Reason: Shortness of breath, wheezing Last Admin: 09/04/17 15:19 Dose: 2.5 mg Carvedilol (Coreg) 6.25 mg PO BID [facility] Last Admin: 09/05/17 05:58 Dose: 6.25 mg Folic Acid (Folic Acid) 1 mg PO DAILY@0800 [facility] Last Admin: 09/05/17 13:27 Dose: 1 mg Furosemide (Lasix) 40 mg PO BID@1000,1800 [facility] Sodium Chloride () 1,000 mls @ 0 mls/hr IV .Q0M [facility] PRN Reason: KVO Lisinopril (Zestril) 20 mg PO DAILY [facility] Last Admin: 09/05/17 05:58 Dose: 20 mg Lorazepam (Ativan) 0.5 mg PO Q6H PRN PRN PRN Reason: Alcohol Withdrawal Ondansetron HCl (Zofran) 4 mg IV Q8H PRN PRN PRN Reason: Nausea Sodium Chloride () 5 - 30 ml IV UD PRN PRN Reason: SALINE FLUSH Last Admin: 09/05/17 13:27 Dose: 10 ml Thiamine HCl (Vitamin B1) [facility] Last Admin: 09/05/17 13:27 Dose: 100 mg Assessment/Plan Active and Suspected Problems Acute systolic CHF (congestive heart failure) (Acute) Cardiomyopathy (Acute) 1. acute systolic heart failure; will change to p.o. Lasix today. 2 . Cardiomyopathy; left heart catheterization does not reveal any coronary stenosis. Etiology unclear, his alcoholism is a possible etiologic factor, he is recommended to quit drinking. 3. Mitral regurgitation; we will follow with cardiology as an outpatient for monitoring. 4 essential hypertension; is controlled on current agents. 5. alcohol use disorder; I see no evidence of DTs at this time, he is recommended to quit drinking. 6. Nicotine dependency; the patient is recommended to quit smoking, he is on nicotine transdermal patch at this time. 7. early Ambulation for DVT prophylaxis. 8. 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
--- NOTE | 2017-09-05 15:46 | PN_ITS ---
Patient Problems: Active and Suspected Problems Acute systolic CHF (congestive heart failure) (Acute) Cardiomyopathy (Acute) Subjective: CC: Dyspnea There with dyspnea and found to have significant cardiomyopathy, he underwent left heart catheterization and he did not reveal any coronary stenosis. Was noted to have significant hypotension following his left heart catheterization, his BP has now stabilized. He denies any dizziness , chest pain , shortness of breath or palpitations. Vitals/I&O's: Vital Signs Temp Pulse Resp BP Pulse Ox 97.4 F L 106 H 16 107/79 99 09/05/17 12:40 09/05/17 14:59 09/05/17 14:39 09/05/17 14:39 09/05/17 14:39 Oxygen Flow Rate (L/min) 2 Oxygen Delivery Method Room Air Weight: 98.8 kg Body Mass Index (BMI) 29.9 Intake and Output for Last 24 Hours 09/03/17 09/04/17 09/05/17 23:59 23:59 23:59 Intake Total 220 / 220 960 / 960 250 / 250 Output Total 800 / 800 5175 / 5175 850 / 850 Balance -580 / -580 -4215 / -4215 -600 / -600 General: Alert, Oriented x3 HEENT: Atraumatic Oral: Moist Mucosa Neck: Supple, No JVD Lungs: Clear to auscultation Cardiovascular: Regular Rhythm, Normal S1, Normal S2 Abdomen: Bowel Sounds Present, Soft, Non Tender, Non-Distended Extremities: No edema Neurological: Cranial nerves II-XII grossly intact, Deep Tendon Reflexes 2+/4 and Symmetrical, Neuro grossly intact, Motor Exam 5/5 strength throughout Laboratory Results 09/05/17 06:30: Urine Color Yellow, Urine Clarity Clear, Urine pH 6.0, Ur Specific [place] 1.020, Urine Protein 15 H, Urine Glucose (UA) Normal, Urine Ketones Negative, Urine Occult Blood Negative, Urine Nitrite Negative, Urine Bilirubin Negative, Urine Urobilinogen 1 H, Ur Leukocyte Esterase 25 H, Urine RBC 0 SEEN, Urine WBC 0-5 SEEN, Ur Squamous Epith Cells 0-5 SEEN, Urine Bacteria RARE, Urine Mucus RARE 09/05/17 08:47: Specimen Type ART, pH 7.46 H, Bicarbonate Actual 21.1 L, POC Total CO2 22, Base Excess -3 L, O2 Saturation 95, ABG pCO2 29.9 L, ABG pO2 72 L 09/05/17 08:58: Specimen Type JAIRON, VBG pH 7.43 H, VBG pO2 29, VBG O2 Sat (Calc) 58, VBG O2 Content 27, VBG Base Excess 1, POC Mix VBG pCO2 Pt Tmp 38.5 L 09/05/17 09:01: Specimen Type JAIRON, VBG pH 7.42, VBG pO2 29, VBG O2 Sat (Calc) 57 , VBG O2 Content 26, VBG Base Excess 1, POC Mix VBG pCO2 Pt Tmp 39.3 L Current Medications Acetaminophen (Tylenol) 650 mg PO Q6H PRN PRN PRN Reason: Mild Pain (scale 0-3)/T>100.7 Albuterol Sulfate (Ventolin Aerosols) 2.5 mg INHALATION Q4H PRN PRN PRN Reason: Shortness of breath, wheezing Last Admin: 09/04/17 15:19 Dose: 2.5 mg Carvedilol (Coreg) 6.25 mg PO BID [facility] Last Admin: 09/05/17 05:58 Dose: 6.25 mg Folic Acid (Folic Acid) 1 mg PO DAILY@0800 [facility] Last Admin: 09/05/17 13:27 Dose: 1 mg Furosemide (Lasix) 40 mg PO BID@1000,1800 [facility] Sodium Chloride () 1,000 mls @ 0 mls/hr IV .Q0M [facility] PRN Reason: KVO Lisinopril (Zestril) 20 mg PO DAILY [facility] Last Admin: 09/05/17 05:58 Dose: 20 mg Lorazepam (Ativan) 0.5 mg PO Q6H PRN PRN PRN Reason: Alcohol Withdrawal Ondansetron HCl (Zofran) 4 mg IV Q8H PRN PRN PRN Reason: Nausea Sodium Chloride () 5 - 30 ml IV UD PRN PRN Reason: SALINE FLUSH Last Admin: 09/05/17 13:27 Dose: 10 ml Thiamine HCl (Vitamin B1) [facility] Last Admin: 09/05/17 13:27 Dose: 100 mg Assessment/Plan Active and Suspected Problems Acute systolic CHF (congestive heart failure) (Acute) Cardiomyopathy (Acute) 1. acute systolic heart failure; will change to p.o. Lasix today. 2 . Cardiomyopathy; left heart catheterization does not reveal any coronary stenosis. Etiology unclear, his alcoholism is a possible etiologic factor, he is recommended to quit drinking. 3. Mitral regurgitation; we will follow with cardiology as an outpatient for monitoring. 4 essential hypertension; is controlled on current agents. 5. alcohol use disorder; I see no evidence of DTs at this time, he is recommended to quit drinking. 6. Nicotine dependency; the patient is recommended to quit smoking, he is on nicotine transdermal patch at this time. 7. early Ambulation for DVT prophylaxis. 8. 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
--- NOTE | 2017-09-05 19:31 | CL.D_ITS ---
Patient Name: SUNG ACEVES Study Date: 09/05/2017 Performing: Santiago Olivier MD Ht: 72 inches 183 cm : 1970 Wt: 220.8 lbs 100 kg Age: 46 Gender: male BSA: 2.22 PROCEDURE(S) PERFORMED QY70-DWG/LHC/COR/LV CLINICAL PROFILE AND INDICATIONS INDICATIONS: 46-year-old man with a history of dilated cardiomyopathy.. Stress/Imaging Stress/Image Study Performed: No CAD Presentations: No Sxs, no angina. CONCLUSIONS Normal coronary arteries Cardiomyopathy: Dilated idiopathic Right heart pressures - Normal RECOMMENDATIONS Medical therapy DESCRIPTION OF PROCEDURE The patient arrived to the procedure lab. The risks and benefits of the procedure as well as a full d escription of our services here and current unavailability of surgical backup were fully explained to the patient and/or their significant other prior to the catheterization. The Timeout was completed, verifying the correct patient and procedure. The patient's procedural site was prepped and draped in the usual fashion. Local anesthetic was given subcutaneously to right groin region with Lidocaine 2%. Using a modified Seldinger technique, arterial access was obtained via the right femoral artery, a 5 Fr sheath was inserted. Venous access was obtained via the right femoral vein, a 7Fr sheath was inser donny. A 7Fr thermal dilution catheter was inserted and right heart pressures were recorded, it was the n advanced to PA position for cardiac outputs. Thermal dilution cardiac outputs were then recorded. O 2 saturations were then obtained. The Thermal dilution catheter was then removed. Left Coronary Arter y selective angiography was performed in multiple views using a 5 Fr. JL4 catheter. Left Coronary Art joie selective angiography was performed in multiple views using a 5 Fr. JL 5 catheter. Right Coronary Artery selective angiography was then performed in multiple views using a 5 Fr. 3DRC (Jackson) cath eter. Left Ventriculography was performed in WANG projection using a 5 Fr. Pigtail catheter. LV to AO pullback pressures were then recorded.Contrast was injected through the sheath and the Right Iliac an d Femoral artery were assessed for possible closure device.The arterial sheath was sutured in place a nd capped. The venous sheath was then sutured inplace and capped. The arterial sheath was pulled and a Mynx closure device was deployed for hemostasis. The venous sheath was then pulled and manual compr ession applied until hemostasis achieved Of note was the fact that The patient was noted to be hypote nsive at the start of the left heart procedure and required intravenous fluids as well as intravenous dopamine. This was titrated up to 20 mics per minute and then subsequently after patient hemodynami cs improved this was discontinued.Test was terminated after hemodynamics normalized CORONARY ANGIOGRAPHY DOMINANCE: Right Dominant LEFT HEART ASSESSMENT Left Ventricular Ejection Fraction: by LV Gram 20 % Global Hypokinesis - Severe Depressed Left Ventricular systolic function LVEDP: 7 mmHg RIGHT HEART ASSESSMENT Thermal CO: 5.57 Thermal CI: 2.51 Timbo CO: 3.44 Timbo CI: 1.55 PW: 05/17 12 PA: 20/8 12 RV: 16/0 2 RA: 1/0 0 PVR: 0 LEFT MAIN: Angiographically normal LEFT ANTERIOR DECENDING ARTERY: Angiographically normal CIRCUMFLEX ARTERY: Angiographically normal RIGHT CORONARY ARTERY: Angiographically normal COMPLICATIONS No Complications PROCEDURE MEDICATIONS Versed 1 mg IV Oxygen: 2 L/min via nasal cannula IV Fluids: .9 NaCl increased to wide open ml/hr 09/05/2017 09:01:29 IV Fluids: .9 NaCl increased to wide open ml/hr infusing through venous sheath 09/05/2017 09:13:57 SUMMARY OF HEMODYNAMIC DATA Time AIR REST ECG 08:08:14 RA 1/0 (0) 08:45:52 RV 16/0, 2 08:46:07 PW 05/17 (12) PV 08:53:38 PA 20/8 (12) PA 08:55:14 AO 58/0 (54) SA 09:01:13 AO 70/59 (63) 09:03:31 LV 94/2, 5 09:07:50 LV 93/3, 7 09:07:58 LV 99/4, 6 09:09:20 LVp 101/3, 6 09:09:29 AOp 102/73 (85) 09:09:34 AO 99/73 (82) 09:09:37 AO 133/77 (96) 09:13:15 AO 110/62 (81) 09:24:26 AO 112/66 (81) 09:32:49 Type SV CO (l/m) CI (l/m/ HR Time AIR REST Thermal 65.50 5.57 2.51 85 08:08:14 Timbo 40.50 3.44 1.55 85 08:08:14 Label % O2 Pres/Loc Time AIR REST RA 57 SV 09:09:00 PA 58 PA 09:09:45 AO 95 PV 09:09:48 Signed By Santiago Olivier MD On 09/05/2017 19:30:57 Santiago Olivier MD
[2017-09-06 03:08] VITALS: BP 106/68; PULSE 84; RESP 16; TEMP 36.8; O2SAT 99
[2017-09-06 03:09] VITALS: PULSE 80
[2017-09-06 06:39] LABS: Absolute Lymphocyte Count 2.11 X10^3/ul (0.83-4.51); Absolute Neutrophil Count 3.8 X10^3/uL (2.0-7.7); Basophil# 0.04 X10^3/uL; Basophil% 0.6 % (0-1); Eosinophil# 0.09 X10^3/uL; Eosinophils% 1.3 % (0-5); Hematocrit 47.6 % (40-54); Hemoglobin 15.7 g/dl (13.0-16.5); Lymphocyte # 2.11 X10^3/ul (4.0); Lymphocyte % 31.3 % (19-41); Mean Corpuscular Hgb 28.7 pg (27.0-32.0); Monocyte# 0.69 X10^3/uL; Monocyte% 10.2 % (0-10); Neutrophil % 56.3 % (47-70); Platelet Count 246 K/mm3 (150-450); RBC Distribution Width CV 14.8 % (11.6-14.6); RBC Distribution Width SD 46.8 fl (35.1-43.9); Red Blood Count 5.47 M/mm3 (4.6-6.2); White Blood Count 6.8 K/mm3 (4.4-11.0)
[2017-09-06 06:41] LABS: POSITIVE COUNT NO; POSITIVE DIFFERENTIAL NO; POSITIVE MORPHOLOGY NO
[2017-09-06 06:52] LABS: Partial Thromboplast Time 26.2 Seconds (24.1-36.2); Prothrombin Time (Protime)PT. 13.5 SECONDS (11.7-14.9)
[2017-09-06 07:00] LABS: Anion Gap 9 (5-15); BUN 24 mg/dL (7-18); BUN/Creat Ratio 21.4 RATIO (10-20); Calcium,Total 8.9 mg/dL (8.5-10.1); Chloride 106 mmol/L (98-107); Creatinine, Serum 1.12 mg/dL (0.70-1.30); EST Glomerular Filtration Rate 74 mL/min (>60); Est Glom Filt Rate - Afr Amer 90 mL/min (>60); Estimated Creatinine Clearance 89.49 ml/min; Glucose 118 mg/dL (74-106); Potassium 4.1 mmol/L (3.5-5.1); Sodium Level 138 mmol/L (136-145)
--- NOTE | 2017-09-06 07:01 | PCM.PN.CARD ---
Subjectve: Patient seen and evaluated and appears to be doing very well. Breathing better Objective: Vital Signs Temp Pulse Resp BP Pulse Ox 98.2 F 80 16 106/68 99 09/06/17 03:08 09/06/17 03:09 09/06/17 03:08 09/06/17 03:08 09/06/17 03:08 Oxygen Flow Rate (L/min) 2 Oxygen Delivery Method Room Air Weight: 217 lb 13.067 oz Body Mass Index (BMI) 29.9 Intake and Output for Last 24 Hours 09/04/17 09/05/17 09/06/17 23:59 23:59 23:59 Intake Total 960 / 960 590 / 590 240 / 240 Output Total 5175 / 5175 1550 / 1550 600 / 600 Balance -4215 / -4215 -960 / -960 -360 / -360 General: Awake, Alert, Oriented x 3 HEENT: PERRL, EOMI, Sclera Non Icteric Neck: Supple, Good ROM, No Lymph Node Enlargement Lungs: Clear to auscultation Cardiovascular: Regular Rhythm, Normal S1, Normal S2, No Murmurs, No Rubs, No Gallops Vascular: No Carotid Bruits, Normal Femoral Pulses, Normal Radial Pulses, Normal Dorsalis Pedal Pulse, Normal Posterior Tibial Pulses Abdomen: Bowel Sounds Present, Soft, Non Tender, No HSM, No Organomegaly Extremities: No Cyanosis, No Clubbing, No edema Neurological: No Focal Motor or Sensory Deficit 09/05/17 06:30: Urine Color Yellow, Urine Clarity Clear, Urine pH 6.0, Ur Specific [place] 1.020, Urine Protein 15 H, Urine Glucose (UA) Normal, Urine Ketones Negative, Urine Occult Blood Negative, Urine Nitrite Negative, Urine Bilirubin Negative, Urine Urobilinogen 1 H, Ur Leukocyte Esterase 25 H, Urine RBC 0 SEEN, Urine WBC 0-5 SEEN 09/05/17 08:47: pH 7.46 H, Bicarbonate Actual 21.1 L, POC Total CO2 22, Base Excess -3 L, O2 Saturation 95, ABG pCO2 29.9 L, ABG pO2 72 L 09/05/17 08:58: VBG pH 7.43 H, VBG pO2 29, VBG O2 Sat (Calc) 58, VBG O2 Content 27, VBG Base Excess 1 09/05/17 09:01: VBG pH 7.42, VBG pO2 29, VBG O2 Sat (Calc) 57, VBG O2 Content 26, VBG Base Excess 1 09/06/17 06:05: WBC 6.8, RBC 5.47, Hgb 15.7, Hct 47.6, MCV 87.0, MCH 28.7, MCHC 33.0, RDW 14.8 H, RDW Differential 46.8 H, Plt Count 246, MPV 10.0, Immature Gran % (Auto) 0.300, Neut % (Auto) 56.3, Lymph % (Auto) 31.3, Wallace % (Auto) 10.2 H, Eos % (Auto) 1.3, Baso % (Auto) 0.6, Absolute Neuts (auto) 3.8, Total Counted Not Reportable 09/06/17 06:05: PT 13.5, INR 1.0, APTT 26.2 09/06/17 06:05: Sodium 138, Potassium 4.1, Chloride 106, Carbon Dioxide 23.0, Anion Gap 9, BUN 24 H, Creatinine 1.12, Est GFR (MDRD) Af Amer 90, Est GFR (MDRD) Non-Af 74, BUN/Creatinine Ratio 21.4 H, Glucose 118 H, Calcium 8.9 Assessment/Plan 1. Congestive heart failure-acute systolic It appears to have presented with congestive heart failure from his signs and symptoms. He apparently had an echocardiogram which demonstrated reduced ejection fraction. This will be repeated and confirmed. In the meantime he is being treated with intravenous Lasix and oral Lasix to which she has responded adequately and beta blockers and CAITLYN inhibitors have also been added. Underwent a left and right heart catheterization which demonstrated essentially normal coronary arteries. He was noted to have severe left ventricular systolic dysfunction with an estimated ejection fraction of 20%. Patient did have an episode of hypotension which was treated with intravenous fluids dopamine with improvement. This morning he is doing much better and is ready to go home. 2. Valvular heart disease Appears to have mitral regurgitation but with a very soft murmur. This will be further quantified with an echocardiogram. It is likely that this is secondary to annular dilatation. 3. Dilated cardiomyopathy Etiology of the above is not clear at this time but will be defined as we go on. Beta blockers and CAITLYN inhibitors will be started. He may need the addition of spironolactone as well. I have already cautioned him about continued alcohol and tobacco use. 4. Hypertension Appears to have untreated uncontrolled hypertension. The contribution of the steroids that he has been on albeit short-term is not known at this time however we will try and wean him off that and start him on antihypertensive therapy. Compliance has been emphasized. 5. Social habits. : Tobacco abuse as well as alcohol have been emphasized and the contribution to his cardiac condition has also been stressed. Thank you for allowing me to participate in the care of your patient. Please don't hesitate to call if any issues arise he can be discharged to be followed up in my office and an outpatient echo will be performed in follow-up to evaluate his mitral regurgitation.
--- NOTE | 2017-09-06 07:15 | NURSING ---
patient in room, removed tele, waiting for discharge. wants to leave now. will not let this nurse place tele.
--- NOTE | 2017-09-06 08:20 | NURSING ---
patient has removed iv. anxious to be discharged. will contact hospitalist.
--- NOTE | 2017-09-06 08:29 | PCM.DC ---
- Discharge Diagnoses Current Active Problems: Current Active and Chronic Problems Acute systolic CHF (congestive heart failure) (Acute) Cardiomyopathy (Acute) Alcohol abuse (Chronic) Tobacco abuse (Chronic) Hypertension (Chronic) You will use the following diet at home:: Calorie/Carbohydrate Controlled (specify 1200, 1400, etc) Discharge Activity: Return to Normal Activity Allergies/Adverse Reactions: Allergies No Known Allergies Allergy (Verified 09/03/17 16:59) Medications to take at Discharge Albuterol Inhaler [Ventolin Hfa] 1 - 2 puff INHALATION Q4H PRN PRN #1 inhaler 09/05/17 Aspirin E.C. [Ecotrin] 81 mg PO DAILY@0800 tablet 09/05/17 Carvedilol [Coreg (Beta Sai)] 6.25 mg PO BID #60 tab 09/05/17 Furosemide [Lasix] 20 mg PO BIDLX #60 tab 09/05/17 Lisinopril [Zestril] 20 mg PO DAILY 6 Days #30 tab 09/05/17 The following prescriptions were given: Albuterol Inhaler [Ventolin Hfa] 1 - 2 puff INHALATION Q4H PRN PRN #1 inhaler PRN Reason: Wheezing Furosemide [Lasix] 20 mg PO BIDLX #60 tab Lisinopril [Zestril] 20 mg PO DAILY 6 Days #30 tab Carvedilol [Coreg (Beta Sai)] 6.25 mg PO BID #60 tab Primary Care Physician: Jesse Doctor,Out of [NON-STAFF] - In 1 Week Proposed Discharge Date: 09/06/17
--- NOTE | 2017-09-06 08:32 | PCM.DC.SUM ---
Discharge Date and Diagnosis Date of Admission: 09/03/17 Date of Discharge: 09/06/17 - Primary Discharge Diagnosis Active and Suspected Problems Acute systolic CHF (congestive heart failure) (Acute) Cardiomyopathy (Acute) - Secondary Discharge Diagnosis Chronic Problems Alcohol abuse (Chronic) Tobacco abuse (Chronic) Hypertension (Chronic) Hospital Course and Treatment Summary of Care Provided: This is a 46 M with no significant past medical history who presented to the ED due to progressive shortness of breath. Patient states she has been short of breath primarily lying flat for the last > 2weeks. He is also had a cough. He was seen by Dr. Garcia and sent over to see Dr. Mercedes who did a echocardiogram in his office showed an ejection fraction of about 30% sent over the patient to the emergency room . The patient was noted to have acute congestive heart failure due to cardiomyopathy and admitted to the hospital, based on IV Lasix and cardiology was consulted. He said underwent left and right heart catheterization which demonstrated essentially normal coronary arteries. He was noted to have severe left ventricular systolic dysfunction with an estimated ejection fraction of 20%. 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 1. acute Congestive heart failure; and is currently clinically compensated. Will continue on p.o. Lasix 40 mg twice daily 2. Dilated cardiomyopathy;unclear etiology. started on Coreg, Lisinopril Beta blockers and CAITLYN inhibitors will be started. Advised against alcohol or tobacco consumption. 3. Mitral regurgitation, likely that this is secondary to annular dilatation. He is advised to follow-up with cardiology. 4. Hypertension; this is controlled. physical exam at the time of discharge; vital signs were stable. He was alert and oriented to time place and person. He did not appear to be any form of distress. S1 and S2 heard no murmur or gallop Lung exam was clear to auscultation with no adventitious sounds. Abdomen was soft nontender with normal bowel sounds. extremity exam did not reveal any edema, palpable pulses bilaterally. Neurologic exam was grossly intact. Discharge Diet: No Restrictions Discharge Activity: Return to Normal Activity Home Medications: Medications to take at Discharge Albuterol Inhaler [Ventolin Hfa] 1 - 2 puff INHALATION Q4H PRN PRN #1 inhaler 09/05/17 Aspirin E.C. [Ecotrin] 81 mg PO DAILY@0800 tablet 09/05/17 Carvedilol [Coreg (Beta Sai)] 6.25 mg PO BID #60 tab 09/05/17 Lisinopril [Zestril] 20 mg PO DAILY 6 Days #30 tab 09/05/17 Furosemide [Lasix] 40 mg PO BID@1000,1800 60 Days #60 tab 09/06/17 Potassium Cloride Effervescent [Potassium Chl 25 Meq Eff (For Liquid)] 25 meq PO DAILY #30 tablet.eff 09/06/17 Following Prescrptions Were Given to Patient: Albuterol Inhaler [Ventolin Hfa] 1 - 2 puff INHALATION Q4H PRN PRN #1 inhaler PRN Reason: Wheezing Furosemide [Lasix] 40 mg PO BID@1000,1800 60 Days #60 tab Lisinopril [Zestril] 20 mg PO DAILY 6 Days #30 tab Potassium Cloride Effervescent [Potassium Chl 25 Meq Eff (For Liquid)] 25 meq PO DAILY #30 tablet.eff Carvedilol [Coreg (Beta Sai)] 6.25 mg PO BID #60 tab Primary Care Physician: Jesse Mena,Out of [NON-STAFF] - In 1 Week Disposition: Home Patient Condition:: Good Meaningful Use Info Meaningful Use Diagnoses (Choose all that apply): None applicable Code Visit Inpatient E&M: 01524 Disch Hosp
--- NOTE | 2017-09-06 08:54 | NURSING ---
patient would not let us take him out by wheelchair. insisted to walk and carry belongings.
== END 2017-09-06 08:48 | disposition home or self-care (01) | DRG 124 ==
LOC: ED 18:07 → PCU 18:40
PROVIDERS: Internal Medicine Cardiovascular Disease; Admitting Provider Hospitalist; Emergency Provider Emergency Medicine; Family Provider Family Medicine; PCP Family Medicine; Visit Provider Internal Medicine
DX: I11.0 Hypertensive heart disease with heart failure (principal); I42.0 Dilated cardiomyopathy; I95.9 Hypotension, unspecified; F10.10 Alcohol abuse, uncomplicated; I34.0 Nonrheumatic mitral (valve) insufficiency; I50.21 Acute systolic (congestive) heart failure; F17.200 Nicotine dependence, unspecified, uncomplicated; Z23 Encounter for immunization
CPT/HCPCS: 36415; 71045; 80048; 80061; 81001; 82803; 83735; 83880; 84443; 84484; 85025; 85610; 85730; 93005; 93460; 94640; 99152; 99153; 99285; 99406; J7030; Q9967; 90686; A4216; C1751; C1894; J1940

== ENCOUNTER → 2017-09-24 20:13 | Outpatient (CLI) | payer MEDICAID, SELFPAY | PROVIDERS: Family Provider Family Medicine; PCP Family Medicine; Visit Provider Family Medicine | DX: G47.10 Hypersomnia, unspecified (principal); R06.02 Shortness of breath; R06.81 Apnea, not elsewhere classified | CPT/HCPCS: 95810 ==

== ENCOUNTER → 2018-04-05 12:45 | Outpatient (CLI) | payer OTHER, SELFPAY ==
--- NOTE | 2018-04-05 12:46 | ECHOD_ITS ---
Reason For Study: Dyspnea/SOB Procedure This was a 2D Doppler, Color Flow transthoracic echocardiogram. Exam performed in department. Left Ventricle Normal LV size. The estimated ejection fraction is 40 %. Stage 1 diastolic dysfunction. No regional wall motion abnormalities noted. There is mild global hypokinesis of the left ventricle. Right Ventricle Normal RV size. Normal systolic function. Atria Normal left atrium. Normal right atrium. Mitral Valve Normal mitral valve. Mild (1+) eccentric mitral valve insufficiency. Tricuspid Valve Normal tricuspid valve. Unable to estimate RV systolic pressure due to inadequate jet, pulmonary artery pressure probably normal. Aortic Valve Normal aortic valve. Trisinus/trileaflet aortic valve. Pulmonic Valve Normal pulmonic valve. Mild (1+) pulmonic valve insufficiency. Great Vessels Normal aortic root. The pulmonary artery is normal size. Normal inferior vena cava. Pericardium/Pleural No pericardial effusion. MMode/2D Measurements & Calculations LVIDd: 5.7 cm IVSd: 1.1 cm Ao root diam: 3.4 cm LVIDs: 4.8 cm LVPWd: 1.1 cm LA dimension: 3.9 cm RVDd: 3.7 cm FS: 16.6 % LAV(MOD-bp): 52.0 ml LVAd ap4: 43.1 cm2 SV(MOD-sp4): 59.9 ml LAV(MOD-bp) Indexed: 23.7 ml/m2 EDV(MOD-sp4): 159.7 ml LAV(MOD-sp2): 55.4 ml EDV(sp4-el): 167.6 ml LAV(MOD-sp4): 43.9 ml LVAs ap4: 31.3 cm2 ESV(MOD-sp4): 99.9 ml ESV(sp4-el): 99.4 ml EF(MOD-sp4): 37.5 % EF(sp4-el): 40.7 % SV(sp4-el): 68.2 ml LA A4 area: 17.3 cm2 RA A4 area: 13.7 cm2 Time Measurements MV dec time: 0.28 sec Doppler Measurements & Calculations MV E max thiago: 63.8 cm/sec Lat Peak E' Thiago: 6.6 cm/sec Med Peak E' Thiago: 6.3 cm/sec MV A max thiago: 89.8 cm/sec E/E' lat: 9.6 E/E' med: 10.1 MV E/A: 0.71 MV V2 max: 115.6 cm/sec MV P1/2t max thiago: 81.9 cm/sec Ao V2 max: 146.5 cm/sec MV max P.3 mmHg MV P1/2t: 108.1 msec Ao max P.6 mmHg MV V2 mean: 54.2 cm/sec MV dec slope: 221.9 cm/sec2 Ao V2 mean: 94.0 cm/sec MV mean P.4 mmHg MVA(P1/2t): 2.0 cm2 Ao mean P.1 mmHg MV V2 VTI: 34.0 cm Ao V2 VTI: 25.8 cm LV V1 max: 112.9 cm/sec MR max thiago: 563.2 cm/sec PA V2 max: 98.2 cm/sec LV V1 max P.1 mmHg MR max P.9 mmHg LV V1 mean P.6 mmHg MR mean thiago: 436.4 cm/sec LV V1 mean: 74.4 cm/sec MR mean P.4 mmHg LV V1 VTI: 21.2 cm MR VTI: 212.1 cm Interpretation Summary Normal LV size. The estimated ejection fraction is 40 %. Stage 1 diastolic dysfunction. There is mild global hypokinesis of the left ventricle. Mild (1+) eccentric mitral valve insufficiency. Ordering Physician: Santiago Olivier Referring Physician: Sukumar Tay Performed By: Laci Ernandez RCS
== END ==
PROVIDERS: Family Provider Family Medicine; PCP Family Medicine; Referring Provider Internal Medicine Cardiovascular Disease; Visit Provider Internal Medicine Cardiovascular Disease
DX: I42.0 Dilated cardiomyopathy (principal)
CPT/HCPCS: 93306

== ENCOUNTER → 2020-05-26 12:13 | Outpatient (CLI) | payer BC, SELFPAY ==
--- NOTE | 2020-05-26 12:18 | EKG12_ITS ---
Test Reason : PRE OP Blood Pressure : / mmHG Vent. Rate : 081 BPM Atrial Rate : 081 BPM P-R Int : 148 ms QRS Dur : 086 ms QT Int : 390 ms P-R-T Axes : 049 028 011 degrees QTc Int : 453 ms Normal sinus rhythm Left ventricular hypertrophy Nonspecific T wave abnormality Abnormal ECG Confirmed by MARITZA HART, ALEAH ([id number]), editorial clerk JOSEFINA TITUS ([id number]) on 05/28/2020 11:24:29 AM Referred By: Ronald Covarrubias Confirmed By:ALEAH SALAS MD
[2020-05-26 13:34] LABS: Hematocrit 46.4 % (40-54); Hemoglobin 14.9 g/dL (13.0-16.5); Mean Corp Hgb Conc 32.1 g/dL (32-36); Mean Corpuscular Hgb 28.1 pg (27.0-32.0); Mean Corpuscular Volume 87.5 fL (80-94); Mean Platelet Vol. 9.8 fl (6.2-12.0); Platelet Count 325 K/mm3 (150-450); RBC Distribution Width CV 13.9 % (11.6-14.6); RBC Distribution Width SD 44.4 fl (35.1-43.9); White Blood Count 6.4 K/mm3 (4.4-11.0)
[2020-05-26 13:52] LABS: Anion Gap 3 (5-15); BUN 18 mg/dL (7-18); BUN/Creat Ratio 19.7 RATIO (10-20); Calcium,Total 9.3 mg/dL (8.5-10.1); Chloride 105 mmol/L (98-107); Creatinine, Serum 0.91 mg/dL (0.70-1.30); EST Glomerular Filtration Rate 93 mL/min (>60); Est Glom Filt Rate - Afr Amer 113 mL/min (>60); Glucose 87 mg/dL (74-106); Potassium 3.8 mmol/L (3.5-5.1); Sodium Level 136 mmol/L (136-145)
== END ==
PROVIDERS: PCP Family Medicine; Referring Provider Otolaryngology; Visit Provider Otolaryngology
DX: Z01.818 Encounter for other preprocedural examination (principal); Z11.59 Encounter for screening for other viral diseases
CPT/HCPCS: 36415; 80048; 85027; 87635; 93005; C9803; U0003

== ENCOUNTER → 2020-06-01 15:38 | Outpatient (CLI) | payer BC, SELFPAY ==
[2018-03-29 14:40] VITALS: BMI 29.7
--- NOTE | 2020-06-01 | SOF_PTH ---
PATIENT: SUNG ACEVES Jr. LOC: [facility] U#:[id number] AGE/SX: 54/M ROOM: RE06/01/[address]: Dr. Allan Covarrubias MD : 1970 BED: DIS: SPEC #: [id number] RECD: 06/01/20 15:08 STATUS: NAKIA OSWALDO #: [id number] REGGIE: 06/01/20 00:[address]: Allan Covarrubias DEPT: SURGICAL PATHOLOGY RECD BY: Melisa Donohue ENTERED: 06/02/20 08:31 SP TYPE: SOFT TISS OTHR DR: Dr. Sukumar Tay MD [facility] [place] Tissues: Preauricular region Procedures: Surgery Specimen Level IV HEADER OPERATION: Excision left preauricular mass PRE-OP DIAGNOSIS: Left preauricular mass TISSUE SUBMITTED: Left preauricular mass MICROSCOPIC DIAGNOSIS Preauricular mass, biopsy: Dermal fibrosis and chronic inflammation. Negative for malignancy. SJ:nasima 06/03/20 COMMENT Case has been reviewed in consultation with Dr. Campa who concurs with the above diagnosis. IDC:AM MICROSCOPIC DESCRIPTION Slides are reviewed. GROSS DESCRIPTION Received is one container labeled with the patient's name and not further designated. The specimen consists of an irregular fragment of light galvan skin measuring 0.7 x 0.5 x 0.1 cm. The specimen is bisected and totally submitted in one cassette. / AM:nasima 06/02/20 TC:3 CPT: 63077
== END ==
PROVIDERS: PCP Family Medicine; Referring Provider Otolaryngology; Visit Provider Otolaryngology
DX: Q18.1 Preauricular sinus and cyst (principal)
CPT/HCPCS: 88305

== ENCOUNTER 2020-06-15 10:43 | Emergency (ER) | payer BC, SELFPAY ==
[2020-06-15 10:44] VITALS: BP 150/101; BP 151/106; PULSE 80; PULSE 82; RESP 14; RESP 19; TEMP 37; O2SAT 100; O2SAT 99; BMI 26.8
--- NOTE | 2020-06-15 10:47 | EKG12_ITS ---
Test Reason : DYSRHYTHMIA Blood Pressure : / mmHG Vent. Rate : 101 BPM Atrial Rate : 101 BPM P-R Int : 136 ms QRS Dur : 088 ms QT Int : 344 ms P-R-T Axes : 052 034 -07 degrees QTc Int : 446 ms Sinus tachycardia Voltage criteria for left ventricular hypertrophy Nonspecific T wave abnormality Abnormal ECG Confirmed by RUBY HART, ITZ ([id number]), commercial production editor BELLA RAMIREZ ([id number]) on 06/21/2020 8:56:21 AM Referred By: MR Confirmed By:VIANCA BELTRAN MD
--- NOTE | 2020-06-15 10:51 | ED.DCSUM_ITS ---
History of Present Illness Chief Complaint: Chest Pain Informant: Patient Narrative: 49-year-old male with past medical history of systolic heart failure, cardiomyopathy, hypertension presents with concern for chest pain and shortness of breath. States this has been intermittent since last night. States that he left work this morning at 2 AM because he was feeling ill. States that he has had multiple episodes of vomiting and is having a heaviness in his chest. Describes it as aching. Denies any diaphoresis. Patient states that he has not had any significant weight gain. Has been taking his Lasix as prescribed. Is a current smoker. Does admit to multiple alcoholic beverages a day. States he has not had any alcohol in 2 days. Past Medical History - Allergies and Home Meds Allergies/Adverse Reactions: Allergies No Known Allergies Allergy (Verified 06/15/20 10:44) Primary Care Physician: Sukumar Tay MD [Primary Care Provider] - Prior records reviewed: Yes Past Medical History: - - HTN, CHF, cardiomyopathy Surgical History: tonsillectomy, - - Back surgery ?3. Lives: With Family Smoking Status: Current every day smoker Alcohol: Heavy Drugs: None - Family History Maternal Family History: Family History (Last Reviewed 03/29/18 @ 16:[address] Santiago Olivier MD) Father Heart disease Alzheimer's dementia Mother congestive heart failure Cardiac aneurysm Family History: Reports: No pertinent history Paternal Family History: Family History (Last Reviewed 03/29/18 @ 16:[address] Santiago Olivier MD) Father Heart disease Alzheimer's dementia Mother congestive heart failure Cardiac aneurysm Family History: Reports: Heart Disease Review of Systems General: Denies: Chills, Fever, Sweats Eyes: Denies: Visual changes - bilaterally, Diplopia ENT: Denies: Rhinorrhea, Sore throat Cardiovascular: Reports: Chest pain. Denies: Palpitations Respiratory: Reports: Dyspnea. Denies: Cough, Dyspnea on exertion Gastrointestinal: Denies: Abdominal pain, Nausea, Vomiting, Diarrhea, Melena, Hematochezia Genitourinary: Denies: Dysuria, Hematuria, Frequency Musculoskeletal: Denies: Back pain, Extremity Pain Skin: Denies: Rash, Wounds Neurological: Denies: Headache, Weakness, Numbness Physical Exam Inital Vital Signs reviewed: Yes General: Well nourished, Well developed, No Acute Distress Head: Normocephalic, Atraumatic Eyes: Perrl, EOMI ENT: Moist mucous membranes, No rhinorrhea Neck: Supple, Nontender Cardiovascular: Regular rate, Regular rhythm, No murmurs Respiratory: No distress, CTA bilaterally, Chest nontender Abdomen: Soft, Nontender, Nondistended, Normal bowel sounds Back: Nontender, Normal Inspection Extremities: Nontender, No edema Skin: Normal color, No rash Neurological: Alert, Oriented x3, Cranial nerves II-XII grossly intact, Normal Strength, Normal Sensation Psychological: Normal affect, Normal Mood Diagnostic/Tx/Re-eval Chest X-Ray - ED: 1 View, Read by ED Physician, Read by Radiologist, Normal Clinical Impression(s) from Imaging Studies Chest X-Ray 06/15/20 11:25 IMPRESSION: Normal x-ray examination of the chest. Electronically Signed: Elias Eyal, at 12:09 EST , Service support , Laboratory Data 06/15/20 06/15/20 06/15/20 11:02 11:02 11:02 WBC 11.3 H RBC 5.10 Hgb 14.9 Hct 43.6 MCV 85.5 MCH 29.2 MCHC 34.2 RDW Std Deviation 43.2 RDW Coeff of Danitza 14.0 Plt Count 262 MPV 9.4 Immature Gran % (Auto) 0.300 Neut % (Auto) 76.6 H Lymph % (Auto) 14.8 L Monona % (Auto) 7.4 Eos % (Auto) 0.4 Baso % (Auto) 0.5 Absolute Neuts (auto) 8.7 H Absolute Lymphs (auto) 1.67 Nucleated RBC % 0 Sodium 136 Potassium 3.6 Chloride 100 Carbon Dioxide 27.0 Anion Gap 9 BUN 24 H Creatinine 1.03 Estim Creat Clear Calc 94.17 Est GFR (MDRD) Af Amer 98 Est GFR (MDRD) Non-Af 81 BUN/Creatinine Ratio 23.3 H Glucose 111 H Calcium 9.2 Troponin I < 0.015 B-Natriuretic Peptide 7.9 06/15/20 14:00 WBC RBC Hgb Hct MCV MCH MCHC RDW Std Deviation RDW Coeff of Danitza Plt Count MPV Immature Gran % (Auto) Neut % (Auto) Lymph % (Auto) Monona % (Auto) Eos % (Auto) Baso % (Auto) Absolute Neuts (auto) Absolute Lymphs (auto) Nucleated RBC % Sodium Potassium Chloride Carbon Dioxide Anion Gap BUN Creatinine Estim Creat Clear Calc Est GFR (MDRD) Af Amer Est GFR (MDRD) Non-Af BUN/Creatinine Ratio Glucose Calcium Troponin I < 0.015 B-Natriuretic Peptide - Rhythm Strip Rhythm Strip: Sinus Rhythm Rate: 76 Ectopy: None - EKG Initial EKG Interpretation: Sinus Rhythm - Sinus rhythm at [address] interval of 150 ms. QTC of 436 ms. LVH. No evidence of ST elevation or depression at this time. - Medical Decision Making Patient appears well and nontoxic. Vital signs within normal limits. Chest x- ray interpreted by myself is clear out evidence of pulmonary vascular congestion or effusion. Radiologist concurs. No volume overload on exam. 2 troponin by 3 hours negative. Patient did receive aspirin. States it is worse with movement on reevaluation at 1230. Patient was given Toradol and will be given Naprosyn for home. Asked to follow-up with his primary care provider. Patient agreeable and discharged home in stable condition. Impression: 1. Atypical chest pain 2. Nausea ED Disposition - Plan for ED Patient: Disposition: Home or Assisted Living Instructions: ED Chest Pain, Uncertain Cause Prescriptions: Naproxen [Naprosyn] 500 mg PO BID #14 tab Prescription Printed Referrals: Sukumar Tay MD [Primary Care Provider] - 2 Days
[2020-06-15 10:53] VITALS: O2SAT 100
[2020-06-15 11:17] LABS: Absolute Lymphocyte Count 1.67 X10^3/uL (0.83-4.51); Absolute Neutrophil Count 8.7 X10^3/uL (2.0-7.7); Basophil# 0.06 X10^3/uL; Basophil% 0.5 % (0-1); Eosinophil# 0.04 X10^3/uL; Eosinophils% 0.4 % (0-5); Hematocrit 43.6 % (40-54); Hemoglobin 14.9 g/dL (13.0-16.5); Lymphocyte # 1.67 X10^3/ul (4.0); Lymphocyte % 14.8 % (19-41); Mean Corp Hgb Conc 34.2 g/dL (32-36); Mean Corpuscular Hgb 29.2 pg (27.0-32.0); Mean Corpuscular Volume 85.5 fL (80-94); Mean Platelet Vol. 9.4 fl (6.2-12.0); Monocyte# 0.84 X10^3/uL; Monocyte% 7.4 % (0-10); NRBC Flagged by Analyzer 0 % (0-5); Neutrophil # 8.65 X10^3/uL (2.7-7.7); Neutrophil % 76.6 % (47-70); Platelet Count 262 K/mm3 (150-450); RBC Distribution Width SD 43.2 fl (35.1-43.9); White Blood Count 11.3 K/mm3 (4.4-11.0)
[2020-06-15] MEDS: Aspirin 81 MG TAB.CHEW 324 MG PO (11:22)
--- NOTE | 2020-06-15 11:25 | RAD_ITS ---
STUDY: X-RAY CHEST REASON FOR EXAM: Male, 49 years old. LEFT SIDED CHEST PAIN THAT GOES DOWN INTO HIS STOMACH, WITH SYMPTOMS STARTING LAST NIGHT. REPORTS N/V LAST NIGHT. TECHNIQUE: Single AP portable view of the chest. COMPARISON: Comparison is made with prior study dated 09/03/2017. FINDINGS: EKG electrodes are seen. The lungs are clear and expanded. There is no demonstrated pleural abnormality. Normal size heart. Normal mediastinum and sydnee. Normal visualized pulmonary arteries. Normal visualized aortic arch and descending thoracic aorta. Normal visualized thoracic spine. Normal visualized ribs, clavicles, and shoulders. There is no demonstrated abnormality of the visualized soft tissue structures of the upper abdomen. RAD/Chest 1 View (Portable) IMPRESSION: Normal x-ray examination of the chest. Electronically Signed: Elias Birch, at 12:09 EST , Service support ,
[2020-06-15 11:36] LABS: Anion Gap 9 (5-15); BUN 24 mg/dL (7-18); BUN/Creat Ratio 23.3 RATIO (10-20); Calcium,Total 9.2 mg/dL (8.5-10.1); Chloride 100 mmol/L (98-107); Creatinine, Serum 1.03 mg/dL (0.70-1.30); EST Glomerular Filtration Rate 81 mL/min (>60); Est Glom Filt Rate - Afr Amer 98 mL/min (>60); Estimated Creatinine Clearance 94.17 ml/min; Glucose 111 mg/dL (74-106); Potassium 3.6 mmol/L (3.5-5.1); Sodium Level 136 mmol/L (136-145)
[2020-06-15 11:39] LABS: BNP,B-Type NATRIURETIC PEPTIDE 7.9 pg/mL (0-100)
[2020-06-15 11:43] VITALS: BP 132/95; PULSE 75; RESP 13; O2SAT 99
[2020-06-15] MEDS: Ketorolac 15 MG/ML Vial IV (12:35)
[2020-06-15 13:00] VITALS: BP 129/93; PULSE 68; RESP 19; O2SAT 100
[2020-06-15 14:00] VITALS: BP 137/93; PULSE 63; RESP 18; O2SAT 97
[2020-06-15 15:00] VITALS: BP 152/99; PULSE 89; RESP 21; O2SAT 99
== END 2020-06-15 15:04 | disposition home or self-care (01) ==
PROVIDERS: Emergency Provider Emergency Medicine; PCP Family Medicine
DX: R07.89 Other chest pain (principal); R11.10 Vomiting, unspecified; F17.200 Nicotine dependence, unspecified, uncomplicated
CPT/HCPCS: 71045; 80048; 83880; 84484; 85025; 93005; 96374; 99285; A4216

== ENCOUNTER 2020-06-17 10:55 | Inpatient (IN) | payer BC, SELFPAY ==
[2020-06-17] VITALS (12 sets, daily range): BP systolic 82–115; BP diastolic 59–86; PULSE 64–98; RESP 16–18; TEMP 36.1–37.1; O2SAT 95–100; BMI 26.8; BMI 26.9; BMI 26.2
--- NOTE | 2020-06-17 11:18 | EKG12_ITS ---
Test Reason : CP Blood Pressure : / mmHG Vent. Rate : 076 BPM Atrial Rate : 076 BPM P-R Int : 150 ms QRS Dur : 090 ms QT Int : 388 ms P-R-T Axes : 052 009 020 degrees QTc Int : 436 ms Normal sinus rhythm Voltage criteria for left ventricular hypertrophy Abnormal ECG Confirmed by RUBY HART, ITZ ([id number]), photo editor JOSEFINA TITUS ([id number]) on 06/23/2020 9:59:12 A M Referred By: NAA Confirmed By:VIANCA BELTRAN MD
--- NOTE | 2020-06-17 11:18 | CT_ITS ---
STUDY: CT ABDOMEN AND PELVIS WITHOUT CONTRAST REASON FOR EXAM: Male, 49 years old. DISCOMFORT TO CHEST/ABD, CHILLS, FATIGUE, DIARRHEA, NAUSEA RADIATION DOSAGE (If Supplied By Facility): CTDIvol = ( 10.35 ) mGy, DLP = ( 506.61 ) mGycm TECHNIQUE: Transaxial images were obtained from the dome of the diaphragm to the symphysis pubis without oral contrast, and without intravenous contrast. Sagittal and coronal images were reconstructed. Individualized dose optimization techniques were used for this CT. COMPARISON: Comparison is made with prior study dated 05/07/2017. FINDINGS: The visualized lung bases are unremarkable. The visualized portions of the heart are within normal limits. There is decreased attenuation of the liver consistent with steatosis. Mild hepatomegaly. Normal gallbladder and extrahepatic biliary system. Normal spleen. There is diffuse enlargement of the pancreas with jenni-pancreatic edema suggesting acute pancreatitis. Normal bilateral adrenal glands. Normal right kidney. Normal left kidney. There is evidence of a soft tissue density and fluid in the left anterior pararenal space most likely secondary to the acute pancreatitis. Normal visualized stomach. Normal small intestine. Normal colon. The appendix is visualized and appears normal. Normal abdominal aorta. Normal inferior vena cava. Normal retroperitoneum. Normal urinary bladder. A small amount of fluid is seen in the pelvis. Normal abdominal wall. Status post laminectomy and mid clavicular screw fixation at the L3-L4, L4-L5 and L5-S1 levels. Degenerative spondylosis is also seen. CT/Abdomen/Pelvis without Cont IMPRESSION: Findings inconsistent with acute pancreatitis with peripancreatic inflammatory changes extending into the left pararenal space and left paracolic gutter with a small amount of free fluid in the cul-de-sac. Electronically Signed: Elias Birch, at 13:30 EST , Service support ,
[2020-06-17] MEDS: 0.9% Normal Saline 1,000 ML 125 ML IV (11:57)
[2020-06-17 12:01] LABS: Absolute Lymphocyte Count 1.24 X10^3/uL (0.83-4.51); Absolute Neutrophil Count 13.6 X10^3/uL (2.0-7.7); Basophil# 0.08 X10^3/uL; Basophil% 0.5 % (0-1); Eosinophil# 0.11 X10^3/uL; Eosinophils% 0.7 % (0-5); Hematocrit 41.6 % (40-54); Hemoglobin 14.2 g/dL (13.0-16.5); Lymphocyte # 1.24 X10^3/ul (4.0); Lymphocyte % 7.6 % (19-41); Mean Corp Hgb Conc 34.1 g/dL (32-36); Mean Corpuscular Volume 84.9 fL (80-94); Mean Platelet Vol. 10.6 fl (6.2-12.0); Monocyte% 6.7 % (0-10); NRBC Flagged by Analyzer 0 % (0-5); Neutrophil % 83.3 % (47-70); POSITIVE MORPHOLOGY YES; Platelet Count 153 K/mm3 (150-450); RBC Distribution Width CV 14.3 % (11.6-14.6); RBC Distribution Width SD 43.9 fl (35.1-43.9); White Blood Count 16.3 K/mm3 (4.4-11.0)
[2020-06-17 12:03] LABS: Differential Indicated SCAN CRITERIA MET
--- NOTE | 2020-06-17 12:23 | ED.DCSUM_ITS ---
History of Present Illness Chief Complaint: General Illness Narrative: Patient presenting for evaluation secondary to abdominal pain chest pain chills fatigue nausea and vomiting. Patient tells me that over the course of about the last week he has had the above symptoms. Patient states that he was seen a couple of days ago, did have a laboratory work-up including cardiac work-up and was discharged. He is having persistent symptoms and does feel as if they are somewhat worsening. His abdominal pain is diffuse, he has some mild nausea and vomiting, decreased p.o. intake. Patient denies that he has a significant cough but he does report that he feels short of breath associated with this. Patient denies any objective fevers, he does have some body aches and generalized malaise. He denies any loose stools. Patient has an underlying history of hypertension, cardiomyopathy, and alcohol abuse. Most recent alcohol intake was last weekend. Past Medical History - Allergies and Home Meds Allergies/Adverse Reactions: Allergies No Known Allergies Allergy (Verified 06/17/20 10:57) Prior records reviewed: Yes Past Medical History: - - Cardiomyopathy, alcohol abuse, hypertension Surgical History: tonsillectomy, - - Back surgery ?3. Smoking Status: Former smoker Alcohol: Heavy Drugs: None - Family History Maternal Family History: Family History (Last Reviewed 03/29/18 @ 16:[address] Santiago Olivier MD) Father Heart disease Alzheimer's dementia Mother congestive heart failure Cardiac aneurysm Family History: Reports: No pertinent history Paternal Family History: Family History (Last Reviewed 03/29/18 @ 16:[address] Santiago Olivier MD) Father Heart disease Alzheimer's dementia Mother congestive heart failure Cardiac aneurysm Family History: Reports: Heart Disease Review of Systems All systems negative except as indicated General: Reports: Malaise Eyes: Denies: Visual changes - bilaterally, Diplopia ENT: Denies: Rhinorrhea, Sore throat Cardiovascular: Reports: Chest pain Respiratory: Reports: Dyspnea. Denies: Cough Gastrointestinal: Reports: Abdominal pain, Nausea, Vomiting Genitourinary: Denies: Dysuria, Hematuria, Frequency Musculoskeletal: Reports: Myalgias Skin: Denies: Rash, Wounds Neurological: Denies: Headache, Weakness, Numbness Physical Exam Vital Signs/Narrative: Vital Signs Temp Pulse Resp BP Pulse Ox 06/17/20 12:07 97.6 F L 98 16 82/60 L 98 06/17/20 11:54 97.6 F L 97 16 86/59 L 98 06/17/20 10:55 96.9 F L 64 16 115/61 Inital Vital Signs reviewed: Yes General: Well nourished, Well developed, No Acute Distress Head: Normocephalic, Atraumatic Eyes: Perrl, EOMI. Negative for: Pale conjunctiva, Scleral icterus ENT: Moist mucous membranes Neck: Supple, Nontender Cardiovascular: Regular rate, Regular rhythm, No murmurs, - - Less radial pulses bilaterally symmetric Respiratory: No distress, CTA bilaterally, Chest nontender Abdomen: - - Abdomen appears mildly distended with diffuse tenderness to palpation. Patient guards with light palpation. No obvious masses. Extremities: Nontender, No edema Skin: Normal color, No rash Neurological: Alert, Oriented x3, Cranial nerves II-XII grossly intact, Normal Strength, Normal Sensation Psychological: Normal affect, Normal Mood Diagnostic/Tx/Re-eval Clinical Impression(s) from Imaging Studies Abdomen/Pelvis CT 06/17/20 11:18 IMPRESSION: Findings inconsistent with acute pancreatitis with peripancreatic inflammatory changes extending into the left pararenal space and left paracolic gutter with a small amount of free fluid in the cul-de-sac. Electronically Signed: Elias Birch, at 13:30 EST , Service support , Chest X-Ray 06/17/20 12:40 IMPRESSION: Normal x-ray examination of the chest. Electronically Signed: Elias Birch, at 12:53 EST , Service support , Laboratory Data 06/17/20 06/17/20 06/17/20 11:50 11:50 11:50 WBC 16.3 H RBC 4.90 Hgb 14.2 Hct 41.6 MCV 84.9 MCH 29.0 MCHC 34.1 RDW Std Deviation 43.9 RDW Coeff of Danitza 14.3 Plt Count 153 MPV 10.6 Immature Gran % (Auto) 1.200 H Neut % (Auto) 83.3 H Lymph % (Auto) 7.6 L Young % (Auto) 6.7 Eos % (Auto) 0.7 Baso % (Auto) 0.5 Absolute Neuts (auto) 13.6 H Absolute Lymphs (auto) 1.24 Nucleated RBC % 0 PT INR APTT Sodium 130 L Potassium 3.8 Chloride 96 L Carbon Dioxide 23.0 Anion Gap 11 BUN 45 H Creatinine 3.80 H Estim Creat Clear Calc 25.53 Est GFR (MDRD) Af Amer 22 L Est GFR (MDRD) Non-Af 18 L BUN/Creatinine Ratio 11.8 Glucose 164 H Lactic Acid 1.8 Calcium 8.9 Total Bilirubin 0.90 AST 53 H ALT 51 Alkaline Phosphatase 72 Lactate Dehydrogenase Troponin I < 0.015 Total Protein 7.5 Albumin 3.1 L Globulin 4.4 H Albumin/Globulin Ratio 0.7 L Lipase 3274 H 06/17/20 06/17/20 11:50 12:40 WBC RBC Hgb Hct MCV MCH MCHC RDW Std Deviation RDW Coeff of Danitza Plt Count MPV Immature Gran % (Auto) Neut % (Auto) Lymph % (Auto) Young % (Auto) Eos % (Auto) Baso % (Auto) Absolute Neuts (auto) Absolute Lymphs (auto) Nucleated RBC % PT 12.6 INR 1.0 APTT 23.7 L Sodium Potassium Chloride Carbon Dioxide Anion Gap BUN Creatinine Estim Creat Clear Calc Est GFR (MDRD) Af Amer Est GFR (MDRD) Non-Af BUN/Creatinine Ratio Glucose Lactic Acid Calcium Total Bilirubin AST ALT Alkaline Phosphatase Lactate Dehydrogenase 625 H Troponin I Total Protein Albumin Globulin Albumin/Globulin Ratio Lipase - EKG Initial EKG Interpretation: - - Sinus tachycardia with rate of 101. Nonspecific T wave changes are noted which appear consistent with prior EKG in May of this year. No evidence of acute ischemia. - Medical Decision Making Patient presented secondary to abdominal pain and generalized illness. He had a concerning abdominal exam and some borderline hypotension. Judicious fluids were administered due to his history of nonischemic cardiomyopathy with heart failure. Patient's lab work was indicative of a leukocytosis, and elevation of the patient's lipase over 3000. An LDH was added on and was found to be elevated in the 600 range. Patient's [place] score criteria is 2. CT abdomen and pelvis demonstrates significant pancreatitis. Patient's blood pressure remains modest, his lactic acid was normal. He was given further fluids. Patient at this time will be admitted. Patient was discussed with the hospitalist. - Critical Care Time Critical care time (excluding procedures): 30-74 minutes ED Disposition - Plan for ED Patient: Disposition: Acute Care [facility] Diagnosis: Chronic systolic CHF (congestive heart failure), NYHA class 2, Acute pancreatitis
[2020-06-17 12:25] LABS: ALB/GLOB Ratio 0.7 RATIO (0.9-2.4); AST(SGOT) 53 U/L (15-37); Alanine Aminotransfer ALT/SGPT 51 U/L (16-61); Albumin, Serum 3.1 g/dL (3.2-5.0); Alkaline Phosphatase 72 U/L (45-117); Anion Gap 11 (5-15); BUN 45 mg/dL (7-18); BUN/Creat Ratio 11.8 RATIO (10-20); Calcium,Total 8.9 mg/dL (8.5-10.1); Chloride 96 mmol/L (98-107); EST Glomerular Filtration Rate 18 mL/min (>60); Est Glom Filt Rate - Afr Amer 22 mL/min (>60); Estimated Creatinine Clearance 25.53 ml/min; Globulin 4.4 g/dL (2.2-4.2); Glucose 164 mg/dL (74-106); Lipase 3274 U/L (73-393); Potassium 3.8 mmol/L (3.5-5.1); Protein, Total 7.5 g/dL (6.4-8.2); Sodium Level 130 mmol/L (136-145)
[2020-06-17 12:37] LABS: Lactic Acid 1.8 mmol/L (0.4-1.9)
--- NOTE | 2020-06-17 12:40 | RAD_ITS ---
STUDY: X-RAY CHEST REASON FOR EXAM: Male, 49 years old. DISCOMFORT TO STOMACH AND CHEST. CHILLS, FATIGUE, NAUSEA TECHNIQUE: Single AP portable view of the chest. COMPARISON: Comparison is made with prior study dated 06/15/2020. FINDINGS: EKG electrodes are seen. The lungs are clear and expanded. There is no demonstrated pleural abnormality. Normal size heart. Normal mediastinum and sydnee. Normal visualized pulmonary arteries. Normal visualized aortic arch and descending thoracic aorta. Normal visualized thoracic spine. Normal visualized ribs, clavicles, and shoulders. There is no demonstrated abnormality of the visualized soft tissue structures of the upper abdomen. RAD/Chest 1 View (Portable) IMPRESSION: Normal x-ray examination of the chest. Electronically Signed: Elias Birch, at 12:53 EST , Service support ,
[2020-06-17 13:54] LABS: Prothrombin Time (Protime)PT. 12.6 SECONDS (11.7-14.9)
[2020-06-17 13:56] LABS: Partial Thromboplast Time 23.7 Seconds (24.1-36.2)
--- NOTE | 2020-06-17 13:59 | PCM.HP.STD ---
Problem List (1) Acute pancreatitis Status: Acute Qualifiers: Pancreatitis type: alcohol induced (2) CANDY (acute kidney injury) Status: Acute (3) HLD (hyperlipidemia) Status: Chronic Qualifiers: Hyperlipidemia type: unspecified Qualified Code(s): E78.5 - Hyperlipidemia, unspecified (4) Essential (primary) hypertension Status: Chronic (5) Chronic systolic CHF (congestive heart failure), NYHA class 2 Status: Chronic (6) Cardiomyopathy, dilated, nonischemic Status: Chronic (7) Alcohol abuse Status: Chronic (8) Tobacco abuse Status: Chronic History of Present Illness Date of Admission: 06/17/20 Chief Complaint: Abdominal pain, nausea, emesis. The patient is a 49 y/o M w/ PMHx: Chronic Systolic CHF/Dilated nonischemic cardiomyopathy, HTN, HLD, Tobacco use, EtOH Abuse, Former Tobacco use who presents to the [facility] ED on 06/17/20 with history of approximately 1 week of intermittent subjective fevers, fatigue, chills, nausea and emesis with diffuse abdominal pain, body aches and although denies any marked cough states he does have some occasional dyspnea sensation. Patient notes his most recent call intake was the weekend prior. Work-up included T 97.6, heart rate 97, BP 86/59, respiratory rate 16, 98% on room air, CBC with WC 16.3, hemoglobin 14.2, platelet 153 with left shift, CMP with sodium 130, chloride 96, BUN/creatinine 45/3.80, glucose 164, lactic acid 1.8, total bilirubin 0.90, AST/ALT 53/51, alk phos 72, troponin less than 0.015, lipase 3274, coags/LDH pending per ED upon evaluation, EKG with sinus tachycardia with nonspecific T wave changes similar to prior with no acute evidence of ischemia, chest x-ray with no acute cardiopulmonary findings, rapid Covid testing negative, rapid influenza A/B negative, blood culture pending per ED, CT abdomen pelvis with findings inconsistent with peripancreatic inflammatory changes extending into the left perirenal space and left paracolic gutter with a small amount of free fluid in the cul-de-sac with normal gallbladder and extrahepatic biliary system. In the ED patient administered normal saline, Zofran, morphine. Past Medical History Past Medical History (Chronic Problems): Chronic Problems (Last Reviewed 09/28/18 @ 16:[address] Santiago Olivier MD) HLD (hyperlipidemia) (Chronic) Essential (primary) hypertension (Chronic) Chronic systolic CHF (congestive heart failure), NYHA class 2 (Chronic) Cardiomyopathy, dilated, nonischemic (Chronic) Non-rheumatic mitral regurgitation (Chronic) Alcohol abuse (Chronic) Tobacco abuse (Chronic) Medical History: Medical History (Last Reviewed 03/29/18 @ 16:[address] Santiago Olivier MD) Essential (primary) hypertension (Chronic) I10 Chronic systolic CHF (congestive heart failure), NYHA class 2 (Chronic) I50.22 Cardiomyopathy, dilated, nonischemic (Chronic) I42.0 Non-rheumatic mitral regurgitation (Chronic) I34.0 Alcohol abuse (Chronic) F10.10 Tobacco abuse (Chronic) Z72.0 Acute systolic CHF (congestive heart failure) (Inactive) I50.21 Dilated cardiomyopathy (Inactive) I42.0 Allergies No Known Allergies Allergy (Verified 06/17/20 10:57) Home Medications: Ambulatory Orders Medication Instructions Recorded Carvedilol 25 mg PO BID 06/17/20 Cyanocobalamin (Vitamin B-12) 500 mcg PO DAILY 06/17/20 [Vitamin B-12] Folic Acid 1 mg PO DAILY 06/17/20 Furosemide 40 mg PO DAILY 06/17/20 Lisinopril 5 mg PO DAILY 06/17/20 Multivitamins,Therapeutic 1 tab PO DAILY 06/17/20 [Multivitamin] Naproxen [Naprosyn] 500 mg PO BID 06/17/20 Surgical History: Surgical History (Last Reviewed 03/29/18 @ 16:[address] Santiago Olivier MD) History of left heart catheterization Onset Date: ~09/05/17 Z98.890 Normal coronary arteries Cardiomyopathy: Dilated idiopathic Right heart pressures - Normal History of tonsillectomy Z90.89 Previous back surgery Z98.890 Surgical History: tonsillectomy, - - Back surgery ?3. Psychiatric History: No pertinent psych hx Lives: Spouse/ Significant Other Smoking Status: Current every day smoker - Patient with ongoing tobacco use specifically cigars which he buys in a 2 pack and notes he smokes 4 cigars daily. Tobacco Use: Cigars Alcohol: Heavy - Patient on a routine daily basis drinks at least 1-2 Chaviar lights and at least 2-3 large vodka and OJ's. Drugs: None - *Family History Maternal Family History: Family History (Last Reviewed 03/29/18 @ 16:[address] Santiago Olivier MD) Father Heart disease Alzheimer's dementia Mother congestive heart failure Cardiac aneurysm History Items: Heart Disease - There with a history of CHF and cardiac aneurysm. Paternal Family History: Family History (Last Reviewed 03/29/18 @ 16:[address] Santiago Olivier MD) Father Heart disease Alzheimer's dementia Mother congestive heart failure Cardiac aneurysm History Items: Dementia, Heart Disease Review of Systems Constitutional: Reports: Anorexia, Malaise, Weakness, Fatigue. Denies: Chills, Fever, Weight Change HEENT: Denies: Head Aches, Sinus Congestion, Sinus Drainage Cardiovascular: Denies: Chest Pain, Palpitations Respiratory: Reports: Shortness of Breath. Denies: Cough, Shortness of breath at rest, Sputum production Gastrointestinal: Reports: Abdominal Pain, Constipation, Nausea, Vomiting Genitourinary: Denies: Dysuria Musculoskeletal: Reports: Back Pain, Joint Pain. Denies: Joint Tenderness Skin: Denies: Rash, Wounds Neurological: Denies: Numbness, Tingling, Focal weakness Psychiatric: Denies: Anxiety, Depression, Homicidal Ideations, Suicidal Ideations Hematologic/ Lymphatic: Denies: Easy Bruising, Easy Bleeding VTE Information - Inpt Only VTE Present on Admission: No VTE Mechan Device Prophylaxis: SCD's VTE Pharm Prophylaxis ordered?: Yes Subjective: Patient seated upright in the ED bed, fatigued and ill-appearing, uncomfortable. Objective: Physical Examination: General: awake, alert, oriented x 3 and cooperative, seated upright in the ED bed, fatigued and ill-appearing, uncomfortable appearing. Skin: normal color, turgor, no icterus, cyanosis. HEENT: AT/NC, EOMI, PERRLA, dry MM, no carotid bruits or JVD noted. Lungs: Decreased effort secondary to severity of abdominal pain, diminished breath sounds, greater bases, no rales, ronchi or wheezing. Heart: Regular rate and rhythm; no gallop, rub audible. Abdomen: Tense, diffusely tender to palpation, more severe epigastric region, rebound significant, appears distended, decreased bowel sounds, difficult to assess HSM secondary to severity of pain and examination rebound. Extremities: no cyanosis, clubbing, or edema. Neurological: patient awake, alert, oriented as noted; cognitive function intact; pupils equally reactive to light and accomodation; cranial nerves II-XII grossly normal, moving all 4 extremities, no focal deficits, strength severely global decrease secondary to acute presentation. Psychiatric: affect appears fatigued, ill, uncomfortable, no acute evidence of depressive or anxiety feelings. - Physical Exam Vitals/I&O's: Vital Signs Temp Pulse Resp BP Pulse Ox 98.4 F 94 18 91/65 100 06/17/20 13:00 06/17/20 13:00 06/17/20 13:00 06/17/20 13:00 06/17/20 13:00 Oxygen Delivery Method Room Air Weight: 198 lb Body Mass Index (BMI) 26.8 Intake and Output for Last 24 Hours 06/15/20 06/16/20 06/17/20 23:59 23:59 23:59 Intake Total 500 / 500 Balance 500 / 500 Microbiology Past 72 Hours 06/17/20 11:52 Mucosa - Nose SARS-CoV-2 Antigen (Rapid) - Final Laboratory Results 06/17/20 11:50: WBC 16.3 H, RBC 4.90, Hgb 14.2, Hct 41.6, MCV 84.9, MCH 29.0, MCHC 34.1, RDW Std Deviation 43.9, RDW Coeff of Danitza 14.3, Plt Count 153, MPV 10.6, Immature Gran % (Auto) 1.200 H, Neut % (Auto) 83.3 H, Lymph % (Auto) 7.6 L, [place] % (Auto) 6.7, Eos % (Auto) 0.7, Baso % (Auto) 0.5, Absolute Neuts (auto) 13.6 H, Absolute Lymphs (auto) 1.24, Nucleated RBC % 0 06/17/20 11:50: Sodium 130 L, Potassium 3.8, Chloride 96 L, Carbon Dioxide 23.0, Anion Gap 11, BUN 45 H, Creatinine 3.80 H, Estim Creat Clear Calc 25.53, Est GFR (MDRD) Af Amer 22 L, Est GFR (MDRD) Non-Af 18 L, BUN/Creatinine Ratio 11.8, Glucose 164 H, Calcium 8.9, Total Bilirubin 0.90, AST 53 H, ALT 51, Alkaline Phosphatase 72, Troponin I < 0.015, Total Protein 7.5, Albumin 3.1 L, Globulin 4.4 H, Albumin/Globulin Ratio 0.7 L, Lipase 3274 H 06/17/20 11:50: Lactic Acid 1.8 06/17/20 11:50: Lactate Dehydrogenase Pending 06/17/20 12:40: PT 12.6, INR 1.0, APTT 23.7 L Current Medications Sodium Chloride () 1,000 mls @ 125 mls/hr IV .Q8H TUNDE Last Admin: 06/17/20 11:57 Dose: 125 mls/hr Documented by: Assessment/Plan All Active Problems (Last Reviewed 03/29/18 @ 16:[address] Santiago Olivier MD) Acute pancreatitis (Acute) CANDY (acute kidney injury) (Acute) The patient is a 49 y/o M w/ PMHx: Chronic Systolic CHF/Dilated nonischemic cardiomyopathy, HTN, HLD, Tobacco use, EtOH Abuse, Former Tobacco use who presents to the [facility] ED on 06/17/20 with history of approximately 1 week of intermittent subjective fevers, fatigue, chills, nausea and emesis with diffuse abdominal pain, body aches and although denies any marked cough states he does have some occasional dyspnea sensation. 1. Acute pancreatitis w/ abdominal pain, N/V: Will admit to [facility], maintain on IVFs, NPO, PPI, IV/po pain control, trend lipase, CMP. Will obtain RUQ US to be cautious despite normal appearance on CT, FLP, likely etiology is patient underlying EtOH consumption. Case management consulted for substance abuse. Given severity of acute pancreatitis and findings on imaging will request general surgery evaluation concurrently secondary concerns for possible progression to necrotic pancreas. 2. Acute kidney injury: Secondary to #1. Admission BUN/Cr 45/3.80, prior baseline creatinine noted to be 0.9-1.1. Will hydrate, hold nephrotoxic medications and repeat chemistry in AM. 3. Chronic Systolic CHF/Dilated nonischemic cardiomyopathy: 04/05/18 ECHO w/ normal LV size, EF 40%, stage I diastolic dysfunction, mild global hypokinesis LV, mild MVI. Will continue asa, coreg, holding lasix and ACEI given CANDY presentation, add back once appropriate, monitor for overload given IVF necessity. 4. Hypertension: Continue home regimen including Coreg with hold parameters given low BP in the ED, holding Lasix and lisinopril given acute kidney injury with addition once improved, PRN hydralazine. 5. Hyperlipidemia: Not on regimen, possibly secondary to underlying alcohol abuse and liver disease, unknown. 6. EtOH Abuse: Reportedly binge drinking, will maintain on CIWA protocol, as needed Ativan, maintain on MVI, thiamine and folic acid. Mag, phos pending. 7. Tobacco Abuse: Encouraged cessation, inpatient consultation per RT, NR if desired. 8. DVT prophylaxis: SCDs, heparin. Inpatient E&M: 58767 Init Hosp L3
[2020-06-17 14:08] LABS: LDH 625 U/L (87-241)
[2020-06-17] MEDS: fentaNYL 100 MCG/2 ML Ampul 50 MCG IV (14:27)
--- NOTE | 2020-06-17 15:13 | PCS.PANDOC ---
PANDEMIC DOCUMENTATION INITIATED: Date: 06/17/2020 Time: 6527
--- NOTE | 2020-06-17 15:14 | US_ITS ---
STUDY: ABDOMINAL ULTRASOUND - RIGHT UPPER QUADRANT REASON FOR VISIT: Male, 49 years old ACUTE PANCREATITIS TECHNIQUE: Ultrasound evaluation of the right upper quadrant was performed with real-time and static baez-scale imaging. TECHNICAL QUALITY: Adequate. COMPARISON: CT scan of the same day showing acute pancreatitis.. FINDINGS: Liver: The liver measures 17.1 cm. There is increased echogenicity consistent with fatty infiltration. The bile ducts are within normal limits. There is hepatic color flow. The direction of portal flow is hepatopetal. There is no demonstrated mass lesion. Gallbladder: Normal distended gallbladder. The gallbladder wall measures 2 mm. There is a negative sonographic Porras''s sign. There is no pericholecystic fluid. There are no gallstones. Common Bile Duct (C.B.D.): The common bile duct measures 4 mm. Pancreas: There is nonvisualization of the pancreas. Right Kidney: Normal size of the right kidney. The right kidney measures 12.1 cm. Normal renal cortex. The right cortex measures 1.7 cm. There is no demonstrated renal mass or cyst. There is no right hydronephrosis. US/Abdomen Limited IMPRESSION: No definite acute abnormality. Note: The CT scan, along with pancreatic enzymes, are far more accurate method to evaluate pancreatitis. Electronically Signed: Thompson Strauss MD at 18:51 EST , Service support ,
[2020-06-17] MEDS: 0.9% Normal Saline 1,000 ML 999 ML IV (15:34)
--- NOTE | 2020-06-17 15:40 | CON.PCM_ITS ---
Problem List (1) Acute pancreatitis Status: Acute Qualifiers: Pancreatitis type: alcohol induced Reason for Consult Date of Consultation: 06/17/20 Reason for Consultation: Acute pancreatitis History of Present Illness: The patient is a 49 year old M who presents with worsening abdominal pain, nausea, fever, body aches. He stated he started with these symptoms on Sunday night. He had to leave work due to the current symptoms plus vomiting. He presented to the ED on Sunday and was told this may be a strained muscle. Patient noted his symptoms continued to worsen and he re-presented to the ED t michael. He has noted lack of appetite. He stated the vomiting stopped on Sunday. He was having difficulties with constipation. He consumed a laxative which allowed him to have a bowel movement. He has a history of CHF which was diagnosed 2 years ago. He uses e-cigarettes which is equivalent to 1 ppd smoker. He notes heavy alcohol use. He notes drinking every night he works and more on the weekend. He states 1-2 beers and multiple mixed drinks, orange juice and vodka. CT scan of ab/pel demonstrated acute pancreatitis with inflammatory changes extending into left pararenal space and paracolic gutter. Small fluid in the cul-de-sac. Normal gallbladder. Labs on admission notable for WBC 16.3. Creatinine 3.80. Total bilirubin is normal. Lipase 3274. AST 53. Past Medical History Past Medical History (Chronic Problems): Chronic Problems (Last Reviewed 06/17/20 @ 15:51 by Kelli LEON, PA-C) HLD (hyperlipidemia) (Chronic) Essential (primary) hypertension (Chronic) Chronic systolic CHF (congestive heart failure), NYHA class 2 (Chronic) Cardiomyopathy, dilated, nonischemic (Chronic) Non-rheumatic mitral regurgitation (Chronic) Alcohol abuse (Chronic) Tobacco abuse (Chronic) Medical History: Medical History (Last Reviewed 06/17/20 @ 15:51 by Kelli LEON, PA-C) Essential (primary) hypertension (Chronic) I10 Chronic systolic CHF (congestive heart failure), NYHA class 2 (Chronic) I50.22 Cardiomyopathy, dilated, nonischemic (Chronic) I42.0 Non-rheumatic mitral regurgitation (Chronic) I34.0 Alcohol abuse (Chronic) F10.10 Tobacco abuse (Chronic) Z72.0 Acute systolic CHF (congestive heart failure) (Inactive) I50.21 Dilated cardiomyopathy (Inactive) I42.0 Allergies No Known Allergies Allergy (Verified 06/17/20 10:57) Home Medications: Ambulatory Orders Medication Instructions Recorded Carvedilol 25 mg PO BID 06/17/20 Cyanocobalamin (Vitamin B-12) 500 mcg PO DAILY 06/17/20 [Vitamin B-12] Folic Acid 1 mg PO DAILY 06/17/20 Furosemide 40 mg PO DAILY 06/17/20 Lisinopril 5 mg PO DAILY 06/17/20 Multivitamins,Therapeutic 1 tab PO DAILY 06/17/20 [Multivitamin] Naproxen [Naprosyn] 500 mg PO BID 06/17/20 Surgical History: Surgical History (Last Reviewed 06/17/20 @ 15:51 by ADDIS BecerraC) History of left heart catheterization Onset Date: ~09/05/17 Z98.890 Normal coronary arteries Cardiomyopathy: Dilated idiopathic Right heart pressures - Normal History of tonsillectomy Z90.89 Previous back surgery Z98.890 Surgical History: tonsillectomy, - - Back surgery ?3. Psychiatric History: No pertinent psych hx Lives: Spouse/ Significant Other Smoking Status: Current every day smoker - Patient with ongoing tobacco use specifically cigars which he buys in a 2 pack and notes he smokes 4 cigars daily. Tobacco Use: Cigars Alcohol: Heavy - Patient on a routine daily basis drinks at least 1-2 Chavira lights and at least 2-3 large vodka and OJ's. Drugs: None - *Family History Maternal Family History: Family History (Last Reviewed 06/17/20 @ 15:51 by Kelli LEON PA-C) Father Heart disease Alzheimer's dementia Mother congestive heart failure Cardiac aneurysm History Items: Heart Disease - There with a history of CHF and cardiac aneurysm. Paternal Family History: Family History (Last Reviewed 06/17/20 @ 15:51 by ADDIS BecerraC) Father Heart disease Alzheimer's dementia Mother congestive heart failure Cardiac aneurysm History Items: Dementia, Heart Disease Review of Systems Constitutional: Reports: Anorexia, Fever, Fatigue HEENT: Denies: Head Aches, Sinus Congestion, Sinus Drainage Cardiovascular: Reports: Chest Pressure. Denies: Palpitations Respiratory: Denies: Cough, Shortness of breath at rest, Sputum production Gastrointestinal: Reports: Abdominal Pain, Nausea Genitourinary: Denies: Dysuria Musculoskeletal: Denies: Joint Pain, Joint Tenderness Skin: Denies: Rash, Wounds Neurological: Denies: Numbness, Tingling, Focal weakness Psychiatric: Denies: Anxiety, Depression, Homicidal Ideations, Suicidal Ideations Hematologic/ Lymphatic: Denies: Easy Bruising, Easy Bleeding Patient Problems: Active and Suspected Problems (Last Reviewed 06/17/20 @ 15:51 by Kelli LEON, PAManjitC) Acute pancreatitis (Acute) CANDY (acute kidney injury) (Acute) - Physical Exam Vitals/I&O's: Vital Signs Temp Pulse Resp BP Pulse Ox 98.8 F 95 18 96/86 H 95 06/17/20 15:18 06/17/20 15:18 06/17/20 15:18 06/17/20 15:18 06/17/20 15:18 Oxygen Delivery Method Room Air Weight: 193 lb 12.581 oz Body Mass Index (BMI) 26.2 Intake and Output for Last 24 Hours 06/15/20 06/16/20 06/17/20 23:59 23:59 23:59 Intake Total 1456 / 1456 Balance 1456 / 1456 General: Alert, Oriented x3, Cooperative HEENT: Atraumatic, PERRLA, EOMI, Normocephalic Neck: Supple, No JVD, Negative Carotid Bruits Lungs: Clear to auscultation, Normal air movement Cardiovascular: Regular rate, No murmurs Abdomen: Distended, Tender - generalized; more tender in the LUQ Extremities: No edema, Capillary Refill Less than 3 Seconds Skin: No rashes, No breakdown Musculoskeletal: No Tenderness to Palpation of Joints or Extremities Neurological: Neuro grossly intact Psych/Mental Status: Normal Affect, Appropriate Microbiology Past 72 Hours 06/17/20 11:52 Mucosa - Nose SARS-CoV-2 Antigen (Rapid) - Final Laboratory Results 06/17/20 11:50: WBC 16.3 H, RBC 4.90, Hgb 14.2, Hct 41.6, MCV 84.9, MCH 29.0, MCHC 34.1, RDW Std Deviation 43.9, RDW Coeff of Danitza 14.3, Plt Count 153, MPV 10.6, Immature Gran % (Auto) 1.200 H, Neut % (Auto) 83.3 H, Lymph % (Auto) 7.6 L , [place] % (Auto) 6.7, Eos % (Auto) 0.7, Baso % (Auto) 0.5, Absolute Neuts (auto) 13.6 H, Absolute Lymphs (auto) 1.24, Nucleated RBC % 0 06/17/20 11:50: Sodium 130 L, Potassium 3.8, Chloride 96 L, Carbon Dioxide 23.0, Anion Gap 11, BUN 45 H, Creatinine 3.80 H, Estim Creat Clear Calc 25.53, Est GFR (MDRD) Af Amer 22 L, Est GFR (MDRD) Non-Af 18 L, BUN/Creatinine Ratio 11.8, Glucose 164 H, Calcium 8.9, Total Bilirubin 0.90, AST 53 H, ALT 51, Alkaline Phosphatase 72, Troponin I < 0.015, Total Protein 7.5, Albumin 3.1 L, Globulin 4.4 H, Albumin/Globulin Ratio 0.7 L, Lipase 3274 H 06/17/20 11:50: Lactic Acid 1.8 06/17/20 11:50: Lactate Dehydrogenase 625 H 06/17/20 11:50: Phosphorus Pending, Magnesium Pending 06/17/20 11:50: Ethyl Alcohol Pending 06/17/20 12:40: PT 12.6, INR 1.0, APTT 23.7 L Current Medications Acetaminophen (Acetaminophen 325 Mg Tablet) 650 mg PO Q6H PRN PRN PRN Reason: Pain Score 1-10/Temp > 100.7 F Al Hydroxide/Mg Hydroxide (Mag Hydrox/Al Hydrox/Simeth 30 Ml Udc) 30 ml PO Q6H PRN PRN PRN Reason: Gastric Burning Albuterol Sulfate (Albuterol 2.5 Mg/3 Ml Vial.Neb.) 2.5 mg INHALATION Q2H PRN PRN PRN Reason: Dyspnea, wheezing Carvedilol (Carvedilol 25 Mg Tablet) 25 mg PO BIDCM [facility] Fentanyl Citrate (Fentanyl 100 Mcg/2 Ml Ampul) 50 mcg IV Q2H PRN PRN PRN Reason: severe pain 6-10/10 if hypotensive Folic Acid (Folic Acid 1 Mg Tablet) 1 mg PO DAILY@0800 [facility] Stop: 06/20/20 08:01 Guaifenesin (Guaifenesin 10 Ml Udc (200mg/10ml)) 20 ml PO Q4H PRN PRN PRN Reason: COUGH Heparin Sodium (Porcine) (Heparin Injection (Vial) 5,000 Unit/Ml Vial) 5,000 unit SC Q12 TUNDE Hydralazine HCl (Hydralazine 20 Mg/Ml Vial) 10 mg IV Q4H PRN PRN PRN Reason: SBP > 160 Hydromorphone HCl (Hydromorphone 0.5 Mg/0.5 Ml Syringe) 0.5 mg IV Q4H PRN PRN PRN Reason: Pain Score 6-10 Sodium Chloride () 1,000 mls @ 999 mls/hr IV .Q1H1M ONE Stop: 06/17/20 16:14 Last Admin: 06/17/20 15:34 Dose: 999 mls/hr Documented by: Sodium Chloride () 1,000 mls @ 150 mls/hr IV .Q6H40M TUNDE Pantoprazole Sodium 40 mg/ (Sodium Chloride) 110 mls @ 330 mls/hr IV Q12 TUNDE Lorazepam (Lorazepam 1 Mg Tablet) 2 mg PO Q2H PRN PRN; Protocol PRN Reason: CIWA score > 8 but <15 Lorazepam (Lorazepam 1 Mg Tablet) 2 mg PO UD PRN; Protocol PRN Reason: CIWA score >/=15. Lorazepam (Lorazepam 2 Mg/Ml Syringe) 2 mg IV Q2H PRN PRN; Protocol PRN Reason: CIWA score > 8 but <15 Lorazepam (Lorazepam 2 Mg/Ml Syringe) 2 mg IV UD PRN; Protocol PRN Reason: CIWA score >/=15. Magnesium Hydroxide (Magnesium Hydroxide 30 Ml Udc) 30 ml PO DAILY PRN PRN PRN Reason: Constipation Multivitamins/Minerals (Multivitamins,Ther W-Minerals Tablet) 1 tablet PO DAILYCM [facility] Nicotine (Nicotine 14 Mg Patch) 14 mg TD DAILY TUNDE Nitroglycerin (Nitroglycerin (Inpatient Use) 0.4 Mg Tab.Subl) 0.4 mg SUBLINGUAL Q5M PRN PRN Reason: CARDIAC/CHEST PAIN Ondansetron HCl (Ondansetron 4 Mg/2 Ml Vial) 4 mg IV Q8H PRN PRN PRN Reason: NAUSEA/VOMITING Oxycodone HCl (Oxycodone 5 Mg Tablet) 5 mg PO Q4H PRN PRN PRN Reason: Pain Score 4-5 Prochlorperazine Edisylate (Prochlorperazine 10 Mg/2 Ml Vial) 5 mg IV Q4H PRN PRN PRN Reason: Breakthrough Nausea/Vomiting Psyllium Hydrophilic Mucilloid (Psyllium 1 Packet) 1 packet PO DAILY PRN PRN PRN Reason: Constipation Senna/Docusate Sodium (Senna/Docusate Sodium 1 Tablet) 2 tablet PO BID PRN PRN PRN Reason: Constipation Sodium Chloride (0.9% Saline Lock 10 Ml Syringe) 10 - 40 ml IV UD PRN PRN Reason: SALINE FLUSH Temazepam (Temazepam 15 Mg Capsule) 15 mg PO QHS PRN PRN PRN Reason: INSOMNIA Thiamine HCl (Thiamine Hydrochloride 100 Mg Tablet) 100 mg PO BIDCM TUNDE Stop: 06/20/20 08:01 Throat Lozenges (Benzocaine/Menthol 1 Lozenge) 1 lozenge MUCOUS MEM Q2H PRN PRN PRN Reason: SORE THROAT Assessment/Plan All Active Problems (Last Reviewed 06/17/20 @ 15:51 by Kelli LEON, PA-C) Acute pancreatitis (Acute) CANDY (acute kidney injury) (Acute) I have been consulted in conjunction with Dr. Riley. He will independently evaluate this patient. Impression: Acute pancreatitis. Plan: I have discussed this patient with Dr. Riley. Agree with medicine recommendations of IV fluids, bowel rest, NPO. CT with contrast is not able to be completed due to patient's creatinine which makes evaluation for necrotizing pancreatitis more difficult. We will continue to closely monitor this patient. Patient has had the opportunity to ask and have questions answered. Patient verbally understands and agrees with the plan. Thank you for allowing us to participate in this patient's care. Office Visits / Consults: [id number] IP Consult L3
[2020-06-17] MEDS: Thiamine Hydrochloride 100 MG Tablet PO (16:02)
[2020-06-17 16:09] LABS: Magnesium 2.3 mg/dL (1.6-2.6); Phosphorus 6.1 mg/dL (2.5-4.9)
[2020-06-17] MEDS: 0.9% Normal Saline 1,000 ML 150 ML IV ×2 (16:35→23:15)
--- NOTE | 2020-06-17 16:42 | PCM.NTREPORT ---
Nutrition Therapy Report - History Nutrition Services has been consulted to:: Manage nutrient details of diet order Current diet / nutrition support order:: NPO - Anthropometric Measurements Height:: 6 ft Weight:: 87.9 kg Body Mass Index (BMI):: 26.2 - Relevant Labs Relevant Labs:: WBC 16.3 K/mm3 (4.4-11.0) H 06/17/20 11:50 Immature Gran % (Auto) 1.200 % (0.0-0.9) H 06/17/20 11:50 Neut % (Auto) 83.3 % (47-70) H 06/17/20 11:50 Lymph % (Auto) 7.6 % (19-41) L 06/17/20 11:50 Absolute Neuts (auto) 13.6 X10^3/uL (2.0-7.7) H 06/17/20 11:50 APTT 23.7 Seconds (24.1-36.2) L 06/17/20 12:40 Sodium 130 mmol/L (136-145) L 06/17/20 11:50 Chloride 96 mmol/L (98-107) L 06/17/20 11:50 BUN 45 mg/dL (7-18) H 06/17/20 11:50 Creatinine 3.80 mg/dL (0.70-1.30) H 06/17/20 11:50 Est GFR (MDRD) Af Amer 22 mL/min (>60) L 06/17/20 11:50 Est GFR (MDRD) Non-Af 18 mL/min (>60) L 06/17/20 11:50 Glucose 164 mg/dL (74-106) H 06/17/20 11:50 Phosphorus 6.1 mg/dL (2.5-4.9) H 06/17/20 11:50 AST 53 U/L (15-37) H 06/17/20 11:50 Lactate Dehydrogenase 625 U/L (87-241) H 06/17/20 11:50 Albumin 3.1 g/dL (3.2-5.0) L 06/17/20 11:50 Globulin 4.4 g/dL (2.2-4.2) H 06/17/20 11:50 Albumin/Globulin Ratio 0.7 RATIO (0.9-2.4) L 06/17/20 11:50 Lipase 3274 U/L (73-393) H 06/17/20 11:50 - Assessment Food / Nutrition-Related History:: Pt states he is hungry at time of assessment but has had poor PO intake over past month. States appetite comes and goes. Does not eat much at times d/t abd pain. Says last PO intake was 4 days [employer]. Believes UBW 220# w/ unintentional wt loss over past 1 month. CBW 193.8#- 26.2#/11.9% significant for malnutrition. - Nutrition Diagnosis Problem / Etiology / Signs & Symptoms (PES):: Pt w/ acute severe malnutrition related to inadequate oral intake d/t abd pain as evidenced by estimated PO intake meeting less than 50% of estimated nutritional needs x 5 days [employer] and 26.2#/11.9% unintentional wt loss x 1 month. Evidence of Malnutrition Exists:: Yes Severe PCM:: Acute Illness - Nutrition Intervention Nutrition Prescription:: [id number] calories, 77-87 g protein per day - Food / Nutrient Delivery Interventions Summary of nutrition intervention:: Hungry at time of assessment but understands NPO diet order. No questions for RDN at this time. Nutrition support ordered as / adjusted to:: recommend advance diet as tolerated to regular, fat restricted w/ 120mL ensure clear 4x/day when medically appropriate. - MNT Monitoring Further MNT monitoring and evaluation required?: Yes MNT Follow-up in:: 3-5 days
[2020-06-17 16:44] LABS: Alcohol, Blood (Medical)-Serum < 3.0 mg/dL
[2020-06-17] MEDS: Heparin Injection (Vial) 5,000 UNIT/ML VIAL 5000 UNIT SC (21:14)
[2020-06-17] MEDS: HYDROmorphone 0.5 MG/0.5 ML SYRINGE IV (23:14)
[2020-06-18] VITALS (10 sets, daily range): BP systolic 106–140; BP diastolic 75–86; PULSE 84–99; RESP 14–16; TEMP 36.6–37; O2SAT 98–100
[2020-06-18 01:05] LABS: Amphetamine Urine VISTA NEGATIVE (<1000 ng/mL); Barbiturate Urine VISTA NEGATIVE (< 200 ng/mL); Benzodiazepine Urine VISTA NEGATIVE (< 200 ng/mL); Cocaine Urine VISTA NEGATIVE (< 300 ng/mL); Ecstacy Urine VISTA NEGATIVE (< 500 ng/mL); Methadone Urine VISTA NEGATIVE (< 300 ng/mL); PCP Urine VISTA NEGATIVE (< 25 ng/mL); THC Urine VISTA POSITIVE (< 50 ng/mL); Vista UDS pH Range 5
[2020-06-18] MEDS: 0.9% Normal Saline 1,000 ML 150 ML IV ×3 (05:59→19:06)
[2020-06-18 07:37] LABS: Absolute Neutrophil Count 9.8 X10^3/uL (2.0-7.7); Basophil# 0.05 X10^3/uL; Basophil% 0.4 % (0-1); Eosinophil# 0.13 X10^3/uL; Hematocrit 35.8 % (40-54); Hemoglobin 11.9 g/dL (13.0-16.5); Lymphocyte % 10.9 % (19-41); Mean Corp Hgb Conc 33.2 g/dL (32-36); Mean Corpuscular Hgb 28.5 pg (27.0-32.0); Mean Corpuscular Volume 85.6 fL (80-94); Mean Platelet Vol. 11.3 fl (6.2-12.0); Monocyte# 1.45 X10^3/uL; Monocyte% 11.2 % (0-10); NRBC Flagged by Analyzer 0 % (0-5); Neutrophil # 9.77 X10^3/uL (2.7-7.7); Neutrophil % 75.7 % (47-70); POSITIVE MORPHOLOGY YES; Platelet Count 144 K/mm3 (150-450); RBC Distribution Width CV 14.8 % (11.6-14.6); RBC Distribution Width SD 46.4 fl (35.1-43.9); Red Blood Count 4.18 M/mm3 (4.6-6.2); White Blood Count 12.9 K/mm3 (4.4-11.0)
[2020-06-18 07:41] LABS: Differential Indicated SCAN CRITERIA MET
[2020-06-18 08:16] LABS: ALB/GLOB Ratio 0.6 RATIO (0.9-2.4); AST(SGOT) 31 U/L (15-37); Alanine Aminotransfer ALT/SGPT 34 U/L (16-61); Albumin, Serum 2.5 g/dL (3.2-5.0); Alkaline Phosphatase 57 U/L (45-117); Anion Gap 9 (5-15); BUN 37 mg/dL (7-18); BUN/Creat Ratio 22.8 RATIO (10-20); Calcium,Total 8.6 mg/dL (8.5-10.1); Chloride 106 mmol/L (98-107); Cholesterol 109 mg/dL (200); Creatinine, Serum 1.62 mg/dL (0.70-1.30); EST Glomerular Filtration Rate 48 mL/min (>60); Est Glom Filt Rate - Afr Amer 58 mL/min (>60); Estimated Creatinine Clearance 59.88 ml/min; Glucose 78 mg/dL (74-106); High Density Lipoprotein 14 mg/dL; Lipase 836 U/L (73-393); Potassium 3.3 mmol/L (3.5-5.1); Protein, Total 6.5 g/dL (6.4-8.2); Sodium Level 136 mmol/L (136-145); Triglycerides 423 mg/dL
[2020-06-18] MEDS: Heparin Injection (Vial) 5,000 UNIT/ML VIAL 5000 UNIT SC ×2 (08:43→22:26)
[2020-06-18] MEDS: Multivitamins,Ther W-Minerals Tablet 1 TABLET PO (08:44)
[2020-06-18] MEDS: Thiamine Hydrochloride 100 MG Tablet PO ×2 (08:44→17:20)
[2020-06-18] MEDS: Folic Acid 1 MG Tablet PO (08:44)
[2020-06-18] MEDS: Carvedilol 25 MG Tablet PO ×2 (08:44→17:20)
[2020-06-18] MEDS: HYDROmorphone 0.5 MG/0.5 ML SYRINGE IV ×2 (08:51→22:30)
[2020-06-18] MEDS: 0.9% Saline Lock 10 ML Syringe IV ×2 (08:52→22:30)
--- NOTE | 2020-06-18 09:07 | PCM.PN.SRG ---
Patient Problems: Active and Suspected Problems (Last Reviewed 06/17/20 @ 15:51 by Kelli LEON, PAManjitC) Acute pancreatitis (Acute) CANDY (acute kidney injury) (Acute) Subjective: Patient states that he feels significantly better than he did yesterday. Urinating without difficulty today. Objective: Abdomen is soft he still has some diffuse abdominal tenderness no peritoneal signs are identified. - Physical Exam Vitals/I&O's: Vital Signs Temp Pulse Resp BP Pulse Ox 98.4 F 93 16 106/75 98 06/18/20 05:57 06/18/20 06:55 06/18/20 05:57 06/18/20 05:57 06/18/20 06:54 Oxygen Delivery Method Room Air Weight: 193 lb 12.581 oz Body Mass Index (BMI) 26.2 Intake and Output for Last 24 Hours 06/16/20 06/17/20 06/18/20 23:59 23:59 23:59 Intake Total 3676 / 3676 1000 / 1000 Balance 3676 / 3676 1000 / 1000 Microbiology Past 72 Hours 06/17/20 11:52 Mucosa - Nose SARS-CoV-2 Antigen (Rapid) - Final Laboratory Results 06/17/20 11:50: WBC 16.3 H, RBC 4.90, Hgb 14.2, Hct 41.6, MCV 84.9, MCH 29.0, MCHC 34.1, RDW Std Deviation 43.9, RDW Coeff of Danitza 14.3, Plt Count 153, MPV 10.6, Immature Gran % (Auto) 1.200 H, Neut % (Auto) 83.3 H, Lymph % (Auto) 7.6 L, Hill % (Auto) 6.7, Eos % (Auto) 0.7, Baso % (Auto) 0.5, Absolute Neuts (auto) 13.6 H, Absolute Lymphs (auto) 1.24, Nucleated RBC % 0 06/17/20 11:50: Sodium 130 L, Potassium 3.8, Chloride 96 L, Carbon Dioxide 23.0, Anion Gap 11, BUN 45 H, Creatinine 3.80 H, Estim Creat Clear Calc 25.53, Est GFR (MDRD) Af Amer 22 L, Est GFR (MDRD) Non-Af 18 L, BUN/Creatinine Ratio 11.8, Glucose 164 H, Calcium 8.9, Total Bilirubin 0.90, AST 53 H, ALT 51, Alkaline Phosphatase 72, Troponin I < 0.015, Total Protein 7.5, Albumin 3.1 L, Globulin 4.4 H, Albumin/Globulin Ratio 0.7 L, Lipase 3274 H 06/17/20 11:50: Lactic Acid 1.8 06/17/20 11:50: Lactate Dehydrogenase 625 H 06/17/20 11:50: Phosphorus 6.1 H, Magnesium 2.3 06/17/20 12:40: PT 12.6, INR 1.0, APTT 23.7 L 06/17/20 16:12: Ethyl Alcohol < 3.0 06/18/20 00:44: Urine Opiates Screen NEGATIVE, Urine Methadone Screen NEGATIVE, Ur Barbiturates Screen NEGATIVE, Ur Phencyclidine Scrn NEGATIVE, Ur Amphetamines Screen NEGATIVE, U Methamphetamin-MDMA NEGATIVE, U Benzodiazepines Scrn NEGATIVE, Urine Cocaine Screen NEGATIVE, U Cannabinoids Screen POSITIVE H, Ur Drug Screen Comment 06/18/20 07:20: WBC 12.9 H, RBC 4.18 L, Hgb 11.9 L, Hct 35.8 L, MCV 85.6, MCH 28.5, MCHC 33.2, RDW Std Deviation 46.4 H, RDW Coeff of Danitza 14.8 H, Plt Count 144 L, MPV 11.3, Immature Gran % (Auto) 0.800, Neut % (Auto) 75.7 H, Lymph % (Auto) 10.9 L, Hill % (Auto) 11.2 H, Eos % (Auto) 1.0, Baso % (Auto) 0.4, Absolute Neuts (auto) 9.8 H, Absolute Lymphs (auto) 1.40, Nucleated RBC % 0 06/18/20 07:20: Sodium 136, Potassium 3.3 L, Chloride 106, Carbon Dioxide 21.0, Anion Gap 9, BUN 37 H, Creatinine 1.62 H, Estim Creat Clear Calc 59.88, Est GFR (MDRD) Af Amer 58 L, Est GFR (MDRD) Non-Af 48 L, BUN/Creatinine Ratio 22.8 H, Glucose 78, Calcium 8.6, Total Bilirubin 0.90, AST 31, ALT 34, Alkaline Phosphatase 57, Total Protein 6.5, Albumin 2.5 L, Globulin 4.0, Albumin/Globulin Ratio 0.6 L, Triglycerides 423 H, Cholesterol 109, LDL Cholesterol TNP, VLDL Cholesterol TNP, HDL Cholesterol 14 L, Lipase 836 H Current Medications Acetaminophen (Acetaminophen 325 Mg Tablet) 650 mg PO Q6H PRN PRN PRN Reason: Pain Score 1-10/Temp > 100.7 F Al Hydroxide/Mg Hydroxide (Mag Hydrox/Al Hydrox/Simeth 30 Ml Udc) 30 ml PO Q6H PRN PRN PRN Reason: Gastric Burning Albuterol Sulfate (Albuterol 2.5 Mg/3 Ml Vial.Neb.) 2.5 mg INHALATION Q2H PRN PRN PRN Reason: Dyspnea, wheezing Carvedilol (Carvedilol 25 Mg Tablet) 25 mg PO BIDCM [facility] Last Admin: 06/18/20 08:44 Dose: 25 mg Documented by: Fentanyl Citrate (Fentanyl 100 Mcg/2 Ml Ampul) 50 mcg IV Q2H PRN PRN PRN Reason: severe pain 6-10/10 if hypotensive Folic Acid (Folic Acid 1 Mg Tablet) 1 mg PO DAILY@0800 [facility] Stop: 06/20/20 08:01 Last Admin: 06/18/20 08:44 Dose: 1 mg Documented by: Guaifenesin (Guaifenesin 10 Ml Udc (200mg/10ml)) 20 ml PO Q4H PRN PRN PRN Reason: COUGH Heparin Sodium (Porcine) (Heparin Injection (Vial) 5,000 Unit/Ml Vial) 5,000 unit SC Q12 [facility] Last Admin: 06/18/20 08:43 Dose: 5,000 unit Documented by: Hydralazine HCl (Hydralazine 20 Mg/Ml Vial) 10 mg IV Q4H PRN PRN PRN Reason: SBP > 160 Hydromorphone HCl (Hydromorphone 0.5 Mg/0.5 Ml Syringe) 0.5 mg IV Q4H PRN PRN PRN Reason: Pain Score 6-10 Last Admin: 06/18/20 08:51 Dose: 0.5 mg Documented by: Sodium Chloride () 1,000 mls @ 150 mls/hr IV .Q6H40M [facility] Last Admin: 06/18/20 05:59 Dose: 150 mls/hr Documented by: Pantoprazole Sodium 40 mg/ (Sodium Chloride) 110 mls @ 330 mls/hr IV Q12 [facility] Last Admin: 06/18/20 08:42 Dose: 330 mls/hr Documented by: Lorazepam (Lorazepam 1 Mg Tablet) 2 mg PO Q2H PRN PRN; Protocol PRN Reason: CIWA score > 8 but <15 Lorazepam (Lorazepam 1 Mg Tablet) 2 mg PO UD PRN; Protocol PRN Reason: CIWA score >/=15. Lorazepam (Lorazepam 2 Mg/Ml Syringe) 2 mg IV Q2H PRN PRN; Protocol PRN Reason: CIWA score > 8 but <15 Lorazepam (Lorazepam 2 Mg/Ml Syringe) 2 mg IV UD PRN; Protocol PRN Reason: CIWA score >/=15. Magnesium Hydroxide (Magnesium Hydroxide 30 Ml Udc) 30 ml PO DAILY PRN PRN PRN Reason: Constipation Multivitamins/Minerals (Multivitamins,Ther W-Minerals Tablet) [facility] Last Admin: 06/18/20 08:44 Dose: 1 tablet Documented by: Nicotine (Nicotine 14 Mg Patch) 14 mg TD DAILY [facility] Last Admin: 06/18/20 08:44 Dose: 14 mg Documented by: Nitroglycerin (Nitroglycerin (Inpatient Use) 0.4 Mg Tab.Subl) 0.4 mg SUBLINGUAL Q5M PRN PRN Reason: CARDIAC/CHEST PAIN Ondansetron HCl (Ondansetron 4 Mg/2 Ml Vial) 4 mg IV Q8H PRN PRN PRN Reason: NAUSEA/VOMITING Oxycodone HCl (Oxycodone 5 Mg Tablet) 5 mg PO Q4H PRN PRN PRN Reason: Pain Score 4-5 Prochlorperazine Edisylate (Prochlorperazine 10 Mg/2 Ml Vial) 5 mg IV Q4H PRN PRN PRN Reason: Breakthrough Nausea/Vomiting Psyllium Hydrophilic Mucilloid (Psyllium 1 Packet) 1 packet PO DAILY PRN PRN PRN Reason: Constipation Senna/Docusate Sodium (Senna/Docusate Sodium 1 Tablet) 2 tablet PO BID PRN PRN PRN Reason: Constipation Sodium Chloride (0.9% Saline Lock 10 Ml Syringe) 10 - 40 ml IV UD PRN PRN Reason: SALINE FLUSH Last Admin: 06/18/20 08:52 Dose: 10 ml Documented by: Temazepam (Temazepam 15 Mg Capsule) 15 mg PO QHS PRN PRN PRN Reason: INSOMNIA Thiamine HCl (Thiamine Hydrochloride 100 Mg Tablet) 100 mg PO BIDCM [facility] Stop: 06/20/20 08:01 Last Admin: 06/18/20 08:44 Dose: 100 mg Documented by: Throat Lozenges (Benzocaine/Menthol 1 Lozenge) 1 lozenge MUCOUS MEM Q2H PRN PRN PRN Reason: SORE THROAT Medical Necessity - Tobacco Use Smoking Status: Current every day smoker - Patient with ongoing tobacco use specifically cigars which he buys in a 2 pack and notes he smokes 4 cigars daily. Tobacco Use: Cigars Assessment/Plan All Active Problems (Last Reviewed 06/17/20 @ 15:51 by Kelli LEON, PA-C) Acute pancreatitis (Acute) CANDY (acute kidney injury) (Acute) Patient appears to be making improvements. Lipase is coming down. We'll continue present medical management.
--- NOTE | 2020-06-18 09:37 | CASEMGMT ---
SW met with patient, introduced self and role at [facility]. SW asked patient about his alcohol consumption. He said the doctor told him he needs to quit. SW asked him if he needs any resources to help him with this. He declined. He said he quit drinking for 13 years. He started back as he lost his mom, dad, and uncle within a couple of years. He said he did not handle this stress appropriately and turned to the crutch of alcohol. KATHERINE asked if he has a good support system and he said he does. He thanked KATHERINE for checking in with him. Liberty ROSE MSW
--- NOTE | 2020-06-18 11:25 | PN_ITS ---
Patient Problems: Active and Suspected Problems (Last Reviewed 06/17/20 @ 15:51 by Kelli LEON PAAnitha) Acute pancreatitis (Acute) CANDY (acute kidney injury) (Acute) Subjective: Patient seen and examined. He was admitted with a complaint of abdominal pain and found to have acute pancreatitis due to alcohol abuse. He states pain is getting better today. He denies any fever, chills, nausea vomiting. He admits to copious alcohol intake as he usually has several drinks after he gets off work in the early hours of the morning. He has remained hemodynamically stable. Vitals/I&O's: Vital Signs Temp Pulse Resp BP Pulse Ox 98.4 F 93 16 106/75 98 06/18/20 05:57 06/18/20 06:55 06/18/20 05:57 06/18/20 05:57 06/18/20 06:54 Oxygen Delivery Method Room Air Weight: 193 lb 12.581 oz Body Mass Index (BMI) 26.2 Intake and Output for Last 24 Hours 06/16/20 06/17/20 06/18/20 23:59 23:59 23:59 Intake Total 3676 / 3676 1110 / 1110 Balance 3676 / 3676 1110 / 1110 General: Alert, Oriented x3, Cooperative, No apparent distress HEENT: Atraumatic, PERRLA, EOMI, Normocephalic Oral: Dry Mucosa Neck: Supple, No JVD, Negative Carotid Bruits Lungs: Clear to auscultation, Normal air movement, No rhonchi, No wheeze, No rales Cardiovascular: Regular rate, Regular Rhythm, Normal S1, Normal S2, No murmurs Abdomen: Bowel Sounds Present, Soft, - - moderate epigastric tenderness, no guarding or rebound tenderness. Extremities: No clubbing, No cyanosis, No edema, Capillary Refill Less than 3 S econds Skin: No rashes, No breakdown Musculoskeletal: No Tenderness to Palpation of Joints or Extremities Lymphatic: No Cervical, Supraclavicular, or Inguinal Adenopathy Neurological: Cranial nerves II-XII grossly intact, Neuro grossly intact, Motor Exam 5/5 strength throughout Psych/Mental Status: Normal Affect, Appropriate, Alert and oriented to time, place, person, mood and affect Microbiology Past 72 Hours 06/17/20 11:52 Mucosa - Nose SARS-CoV-2 Antigen (Rapid) - Final Laboratory Results 06/17/20 11:50: WBC 16.3 H, RBC 4.90, Hgb 14.2, Hct 41.6, MCV 84.9, MCH 29.0, MCHC 34.1, RDW Std Deviation 43.9, RDW Coeff of Danitza 14.3, Plt Count 153, MPV 10.6, Immature Gran % (Auto) 1.200 H, Neut % (Auto) 83.3 H, Lymph % (Auto) 7.6 L , Lee % (Auto) 6.7, Eos % (Auto) 0.7, Baso % (Auto) 0.5, Absolute Neuts (auto) 13.6 H, Absolute Lymphs (auto) 1.24, Nucleated RBC % 0 06/17/20 11:50: Sodium 130 L, Potassium 3.8, Chloride 96 L, Carbon Dioxide 23.0, Anion Gap 11, BUN 45 H, Creatinine 3.80 H, Estim Creat Clear Calc 25.53, Est GFR (MDRD) Af Amer 22 L, Est GFR (MDRD) Non-Af 18 L, BUN/Creatinine Ratio 11.8, Glucose 164 H, Calcium 8.9, Total Bilirubin 0.90, AST 53 H, ALT 51, Alkaline Phosphatase 72, Troponin I < 0.015, Total Protein 7.5, Albumin 3.1 L, Globulin 4.4 H, Albumin/Globulin Ratio 0.7 L, Lipase 3274 H 06/17/20 11:50: Lactic Acid 1.8 06/17/20 11:50: Lactate Dehydrogenase 625 H 06/17/20 11:50: Phosphorus 6.1 H, Magnesium 2.3 06/17/20 12:40: PT 12.6, INR 1.0, APTT 23.7 L 06/17/20 16:12: Ethyl Alcohol < 3.0 06/18/20 00:44: Urine Opiates Screen NEGATIVE, Urine Methadone Screen NEGATIVE, Ur Barbiturates Screen NEGATIVE, Ur Phencyclidine Scrn NEGATIVE, Ur Amphetamines Screen NEGATIVE, U Methamphetamin-MDMA NEGATIVE, U Benzodiazepines Scrn NEGATIVE, Urine Cocaine Screen NEGATIVE, U Cannabinoids Screen POSITIVE H, Ur Drug Screen Comment 06/18/20 07:20: WBC 12.9 H, RBC 4.18 L, Hgb 11.9 L, Hct 35.8 L, MCV 85.6, MCH 28.5, MCHC 33.2, RDW Std Deviation 46.4 H, RDW Coeff of Danitza 14.8 H, Plt Count 144 L, MPV 11.3, Immature Gran % (Auto) 0.800, Neut % (Auto) 75.7 H, Lymph % (Auto) 10.9 L, Lee % (Auto) 11.2 H, Eos % (Auto) 1.0, Baso % (Auto) 0.4, Absolute Neuts (auto) 9.8 H, Absolute Lymphs (auto) 1.40, Nucleated RBC % 0 06/18/20 07:20: Sodium 136, Potassium 3.3 L, Chloride 106, Carbon Dioxide 21.0, Anion Gap 9, BUN 37 H, Creatinine 1.62 H, Estim Creat Clear Calc 59.88, Est GFR (MDRD) Af Amer 58 L, Est GFR (MDRD) Non-Af 48 L, BUN/Creatinine Ratio 22.8 H, Glucose 78, Calcium 8.6, Total Bilirubin 0.90, AST 31, ALT 34, Alkaline Phosphatase 57, Total Protein 6.5, Albumin 2.5 L, Globulin 4.0, Albumin/Globulin Ratio 0.6 L, Triglycerides 423 H, Cholesterol 109, LDL Cholesterol TNP, VLDL Cholesterol TNP, HDL Cholesterol 14 L, Lipase 836 H Diagnostic Data Abdomen/Pelvis CT 06/17/20 11:18 IMPRESSION: Findings inconsistent with acute pancreatitis with peripancreatic inflammatory changes extending into the left pararenal space and left paracolic gutter with a small amount of free fluid in the cul-de-sac. Electronically Signed: Elias Birch, at 13:30 EST , Service support , Chest X-Ray 06/17/20 12:40 IMPRESSION: Normal x-ray examination of the chest. Electronically Signed: Elias Birch, at 12:53 EST , Service support , Abdomen Ultrasound 06/17/20 15:14 IMPRESSION: No definite acute abnormality. Note: The CT scan, along with pancreatic enzymes, are far more accurate method to evaluate pancreatitis. Electronically Signed: Thompson Strauss MD at 18:51 EST , Service support , Current Medications Acetaminophen (Acetaminophen 325 Mg Tablet) 650 mg PO Q6H PRN PRN PRN Reason: Pain Score 1-10/Temp > 100.7 F Al Hydroxide/Mg Hydroxide (Mag Hydrox/Al Hydrox/Simeth 30 Ml Udc) 30 ml PO Q6H PRN PRN PRN Reason: Gastric Burning Albuterol Sulfate (Albuterol 2.5 Mg/3 Ml Vial.Neb.) 2.5 mg INHALATION Q2H PRN PRN PRN Reason: Dyspnea, wheezing Carvedilol (Carvedilol 25 Mg Tablet) 25 mg PO BIDCM [facility] Last Admin: 06/18/20 08:44 Dose: 25 mg Documented by: Fentanyl Citrate (Fentanyl 100 Mcg/2 Ml Ampul) 50 mcg IV Q2H PRN PRN PRN Reason: severe pain 6-10/10 if hypotensive Folic Acid (Folic Acid 1 Mg Tablet) 1 mg PO DAILY@0800 [facility] Stop: 06/20/20 08:01 Last Admin: 06/18/20 08:44 Dose: 1 mg Documented by: Guaifenesin (Guaifenesin 10 Ml Udc (200mg/10ml)) 20 ml PO Q4H PRN PRN PRN Reason: COUGH Heparin Sodium (Porcine) (Heparin Injection (Vial) 5,000 Unit/Ml Vial) 5,000 unit SC Q12 [facility] Last Admin: 06/18/20 08:43 Dose: 5,000 unit Documented by: Hydralazine HCl (Hydralazine 20 Mg/Ml Vial) 10 mg IV Q4H PRN PRN PRN Reason: SBP > 160 Hydromorphone HCl (Hydromorphone 0.5 Mg/0.5 Ml Syringe) 0.5 mg IV Q4H PRN PRN PRN Reason: Pain Score 6-10 Last Admin: 06/18/20 08:51 Dose: 0.5 mg Documented by: Sodium Chloride () 1,000 mls @ 150 mls/hr IV .Q6H40M [facility] Last Admin: 06/18/20 05:59 Dose: 150 mls/hr Documented by: Pantoprazole Sodium 40 mg/ (Sodium Chloride) 110 mls @ 330 mls/hr IV Q12 [facility] Last Infusion: 06/18/20 09:47 Dose: Infused Documented by: Lorazepam (Lorazepam 1 Mg Tablet) 2 mg PO Q2H PRN PRN; Protocol PRN Reason: CIWA score > 8 but <15 Lorazepam (Lorazepam 1 Mg Tablet) 2 mg PO UD PRN; Protocol PRN Reason: CIWA score >/=15. Lorazepam (Lorazepam 2 Mg/Ml Syringe) 2 mg IV Q2H PRN PRN; Protocol PRN Reason: CIWA score > 8 but <15 Lorazepam (Lorazepam 2 Mg/Ml Syringe) 2 mg IV UD PRN; Protocol PRN Reason: CIWA score >/=15. Magnesium Hydroxide (Magnesium Hydroxide 30 Ml Udc) 30 ml PO DAILY PRN PRN PRN Reason: Constipation Multivitamins/Minerals (Multivitamins,Ther W-Minerals Tablet) 1 tablet PO [facility]ILY[facility] Last Admin: 06/18/20 08:44 Dose: 1 tablet Documented by: Nicotine (Nicotine 14 Mg Patch) 14 mg TD DAILY [facility] Last Admin: 06/18/20 08:44 Dose: 14 mg Documented by: Nitroglycerin (Nitroglycerin (Inpatient Use) 0.4 Mg Tab.Subl) 0.4 mg SUBLINGUAL Q5M PRN PRN Reason: CARDIAC/CHEST PAIN Ondansetron HCl (Ondansetron 4 Mg/2 Ml Vial) 4 mg IV Q8H PRN PRN PRN Reason: NAUSEA/VOMITING Oxycodone HCl (Oxycodone 5 Mg Tablet) 5 mg PO Q4H PRN PRN PRN Reason: Pain Score 4-5 Prochlorperazine Edisylate (Prochlorperazine 10 Mg/2 Ml Vial) 5 mg IV Q4H PRN PRN PRN Reason: Breakthrough Nausea/Vomiting Psyllium Hydrophilic Mucilloid (Psyllium 1 Packet) 1 packet PO DAILY PRN PRN PRN Reason: Constipation Senna/Docusate Sodium (Senna/Docusate Sodium 1 Tablet) 2 tablet PO BID PRN PRN PRN Reason: Constipation Sodium Chloride (0.9% Saline Lock 10 Ml Syringe) 10 - 40 ml IV UD PRN PRN Reason: SALINE FLUSH Last Admin: 06/18/20 08:52 Dose: 10 ml Documented by: Temazepam (Temazepam 15 Mg Capsule) 15 mg PO QHS PRN PRN PRN Reason: INSOMNIA Thiamine HCl (Thiamine Hydrochloride 100 Mg Tablet) 100 mg PO BIDCM [facility] Stop: 06/20/20 08:01 Last Admin: 06/18/20 08:44 Dose: 100 mg Documented by: Throat Lozenges (Benzocaine/Menthol 1 Lozenge) 1 lozenge MUCOUS MEM Q2H PRN PRN PRN Reason: SORE THROAT Medical Necessity - Tobacco Use Smoking Status: Current every day smoker - Patient with ongoing tobacco use specifically cigars which he buys in a 2 pack and notes he smokes 4 cigars daily. Tobacco Use: Cigars Assessment/Plan All Active Problems (Last Reviewed 06/17/20 @ 15:51 by Kelli LEON, PA-C) Acute pancreatitis (Acute) CANDY (acute kidney injury) (Acute) #Acute pancreatitis due to alcohol abuse * currently NPO * on IV fluids and IV fentanyl for pain. * Surgery on board. Continue keeping n.p.o. for now as he still having abdominal pain * To consider starting oral with diet tomorrow and to advance as tolerated. * WBC has trended down to 12. * #Hypokalemia: Potassium is 3.3. Will replace. #Heart failure with reduced ejection fraction and nonischemic cardiomyopathy * On aspirin and Coreg. Lasix and CAITLYN inhibitor on hold on account of CANDY. * 2D echo from 2018 showed EF of 40% with normal left ventricular size and stage I diastolic dysfunction with mild global hypokinesis of the left ventricle * #Hypertension: On Coreg. Lasix and lisinopril on hold on account of CANDY #Hyperlipidemia: Stable not on any medication and reason is unclear. Follow-up with PCP. #History of alcohol abuse: On alcohol withdrawal protocol with Ativan. On thiamine and folic acid as well as Multivite's. Not in acute withdrawal #History of nicotine dependence: Nicotine patch. c ounseled to quit. DVT prophylaxis: heparin Inpatient E&M: 17710 Subs Hosp L2
--- NOTE | 2020-06-18 12:25 | CASEMGMT ---
MEI ROSS assessment: Face to Face with patient for initial transition planning/care coordination assessment. RN CODY introduced self and role at [facility], pt voices understanding and consents to assessment at this time. Pt is sitting up in bed in no distress at this time. Pt is A/Ox4 at this time and answers all questions appropriately at this time. Care providers, pharmacy, and demographics verified at this time. Presentation: Discomfort to stomach and chest. chills, fatigue, nausea Admitting dx: Acute pancreatitis, hypotension PCP: Maggi Specialists: Charline, cardio Preferred Pharmacy: [facility] Insurance: [place] Prescription Benefit: [place] Living Will/HPOA: Pt states does not have LW/HPOA but is agreeable to AD info at this time. Pt provided with AD info at this time. LNOK: Alycia Ames, Living Arrangements: Pt states lives with in 1 story home and states no concerns at home at this time. Pt states is independent with ADL's. Transportation: Pt states drives self and states no transportation concerns at this time. DME/HHC: Pt states has a BP cuff at home and states no need for any further DME at this time. Pt states no hx HHC Or SNF in the past. Pt states no concerns with going home at time of discharge. 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 Pt states smokes about 4 cigars daily and drinks a beer, couple mixed drinks prior to bedtime. Pt declines ETOH abuse resources per SW and pt states 'I guess I need to be done with that.' Pt states no further concerns/needs at this time. CM to follow for any further discharge planning/needs. Advised pt to ask for CM if any further questions/concerns/needs arise, voices understanding. Pt Goal: Home Plan[place]
[2020-06-19] VITALS (12 sets, daily range): BP systolic 129–154; BP diastolic 81–90; PULSE 67–83; RESP 17–20; TEMP 36.6–37.1; O2SAT 99–100
[2020-06-19] MEDS: 0.9% Normal Saline 1,000 ML 150 ML IV ×4 (00:56→20:30)
[2020-06-19] MEDS: 0.9% Saline Lock 10 ML Syringe IV ×2 (06:19→16:15)
[2020-06-19] MEDS: HYDROmorphone 0.5 MG/0.5 ML SYRINGE IV ×3 (06:19→16:15)
[2020-06-19] MEDS: Heparin Injection (Vial) 5,000 UNIT/ML VIAL 5000 UNIT SC ×2 (09:06→20:30)
[2020-06-19] MEDS: Multivitamins,Ther W-Minerals Tablet 1 TABLET PO (09:08)
[2020-06-19] MEDS: Carvedilol 25 MG Tablet PO ×2 (09:08→17:16)
[2020-06-19] MEDS: Folic Acid 1 MG Tablet PO (09:08)
[2020-06-19] MEDS: Thiamine Hydrochloride 100 MG Tablet PO ×2 (09:08→17:16)
--- NOTE | 2020-06-19 10:28 | PN.SURG_ITS ---
Patient Problems: Active and Suspected Problems (Last Reviewed 06/17/20 @ 15:51 by Kelli LOEN, PAManjitC) Acute pancreatitis (Acute) CANDY (acute kidney injury) (Acute) Subjective: Patient states his mid abdominal pain is better he still has some the lateral midsection on the left. Patient has full breakfast in front of him this morning has not started to eat yet - Physical Exam Vitals/I&O's: Vital Signs Temp Pulse Resp BP Pulse Ox 98.0 F 71 18 149/88 H 100 06/19/20 09:05 06/19/20 09:05 06/19/20 09:05 06/19/20 09:05 06/19/20 09:14 Oxygen Delivery Method Room Air Weight: 204 lb 12.951 oz Body Mass Index (BMI) 26.2 Intake and Output for Last 24 Hours 06/17/20 06/18/20 06/19/20 23:59 23:59 23:59 Intake Total 3676 / 3676 3855 / 3855 1655.0 / 1655.0 Balance 3676 / 3676 3855 / 3855 1655.0 / 1655.0 General: Alert, Oriented x3, Cooperative, No apparent distress HEENT: Atraumatic Lungs: Normal air movement Cardiovascular: Regular rate Abdomen: Soft, Non-Distended, Tender - Left mid abdomen, no peritoneal signs Microbiology Past 72 Hours 06/17/20 13:55 Blood Culture (Wb) - Right Hand Blood Culture - Preliminary No growth in 48 hours. 06/17/20 12:40 Blood Culture (Wb) - Anticubital Right Blood Culture - Preliminary No growth in 48 hours. 06/17/20 11:52 Mucosa - Nose SARS-CoV-2 Antigen (Rapid) - Final Current Medications Acetaminophen (Acetaminophen 325 Mg Tablet) 650 mg PO Q6H PRN PRN PRN Reason: Pain Score 1-10/Temp > 100.7 F Al Hydroxide/Mg Hydroxide (Mag Hydrox/Al Hydrox/Simeth 30 Ml Udc) 30 ml PO Q6H PRN PRN PRN Reason: Gastric Burning Albuterol Sulfate (Albuterol 2.5 Mg/3 Ml Vial.Neb.) 2.5 mg INHALATION Q2H PRN PRN PRN Reason: Dyspnea, wheezing Carvedilol (Carvedilol 25 Mg Tablet) 25 mg PO BIDCM [facility] Last Admin: 06/19/20 09:08 Dose: 25 mg Documented by: Fentanyl Citrate (Fentanyl 100 Mcg/2 Ml Ampul) 50 mcg IV Q2H PRN PRN PRN Reason: severe pain 6-10/10 if hypotensive Folic Acid (Folic Acid 1 Mg Tablet) 1 mg PO DAILY@0800 [facility] Stop: 06/20/20 08:01 Last Admin: 06/19/20 09:08 Dose: 1 mg Documented by: Guaifenesin (Guaifenesin 10 Ml Udc (200mg/10ml)) 20 ml PO Q4H PRN PRN PRN Reason: COUGH Heparin Sodium (Porcine) (Heparin Injection (Vial) 5,000 Unit/Ml Vial) 5,000 unit SC Q12 [facility] Last Admin: 06/19/20 09:06 Dose: 5,000 unit Documented by: Hydralazine HCl (Hydralazine 20 Mg/Ml Vial) 10 mg IV Q4H PRN PRN PRN Reason: SBP > 160 Hydromorphone HCl (Hydromorphone 0.5 Mg/0.5 Ml Syringe) 0.5 mg IV Q4H PRN PRN PRN Reason: Pain Score 6-10 Last Admin: 06/19/20 06:19 Dose: 0.5 mg Documented by: Sodium Chloride () 1,000 mls @ 150 mls/hr IV .Q6H40M [facility] Last Infusion: 06/19/20 09:30 Dose: 150 mls/hr Documented by: Pantoprazole Sodium 40 mg/ (Sodium Chloride) 110 mls @ 330 mls/hr IV Q12 [facility] Last Infusion: 06/19/20 09:30 Dose: Infused Documented by: Lorazepam (Lorazepam 1 Mg Tablet) 2 mg PO Q2H PRN PRN; Protocol PRN Reason: CIWA score > 8 but <15 Lorazepam (Lorazepam 1 Mg Tablet) 2 mg PO UD PRN; Protocol PRN Reason: CIWA score >/=15. Lorazepam (Lorazepam 2 Mg/Ml Syringe) 2 mg IV Q2H PRN PRN; Protocol PRN Reason: CIWA score > 8 but <15 Lorazepam (Lorazepam 2 Mg/Ml Syringe) 2 mg IV UD PRN; Protocol PRN Reason: CIWA score >/=15. Magnesium Hydroxide (Magnesium Hydroxide 30 Ml Udc) 30 ml PO DAILY PRN PRN PRN Reason: Constipation Multivitamins/Minerals (Multivitamins,Ther W-Minerals Tablet) [facility] Last Admin: 06/19/20 09:08 Dose: 1 tablet Documented by: Nicotine (Nicotine 14 Mg Patch) 14 mg TD DAILY [facility] Last Admin: 06/19/20 09:09 Dose: 14 mg Documented by: Nitroglycerin (Nitroglycerin (Inpatient Use) 0.4 Mg Tab.Subl) 0.4 mg SUBLINGUAL Q5M PRN PRN Reason: CARDIAC/CHEST PAIN Ondansetron HCl (Ondansetron 4 Mg/2 Ml Vial) 4 mg IV Q8H PRN PRN PRN Reason: NAUSEA/VOMITING Oxycodone HCl (Oxycodone 5 Mg Tablet) 5 mg PO Q4H PRN PRN PRN Reason: Pain Score 4-5 Prochlorperazine Edisylate (Prochlorperazine 10 Mg/2 Ml Vial) 5 mg IV Q4H PRN PRN PRN Reason: Breakthrough Nausea/Vomiting Psyllium Hydrophilic Mucilloid (Psyllium 1 Packet) 1 packet PO DAILY PRN PRN PRN Reason: Constipation Senna/Docusate Sodium (Senna/Docusate Sodium 1 Tablet) 2 tablet PO BID PRN PRN PRN Reason: Constipation Sodium Chloride (0.9% Saline Lock 10 Ml Syringe) 10 - 40 ml IV UD PRN PRN Reason: SALINE FLUSH Last Admin: 06/19/20 06:19 Dose: 10 ml Documented by: Temazepam (Temazepam 15 Mg Capsule) 15 mg PO QHS PRN PRN PRN Reason: INSOMNIA Thiamine HCl (Thiamine Hydrochloride 100 Mg Tablet) [facility] Stop: 06/20/20 08:01 Last Admin: 06/19/20 09:08 Dose: 100 mg Documented by: Throat Lozenges (Benzocaine/Menthol 1 Lozenge) 1 lozenge MUCOUS MEM Q2H PRN PRN PRN Reason: SORE THROAT Medical Necessity - Tobacco Use Smoking Status: Current every day smoker - Patient with ongoing tobacco use specifically cigars which he buys in a 2 pack and notes he smokes 4 cigars daily. Tobacco Use: Cigars Assessment/Plan All Active Problems (Last Reviewed 06/17/20 @ 15:51 by Kelli LEON PA-C) Acute pancreatitis (Acute) CANDY (acute kidney injury) (Acute) Acute pancreatitis alcohol induced--lipase resolving, no plans for any general surgery intervention. Diet per primary Tamie Majano M.D. Pager: [phone] [facility] [address] [place] [address], [facility], [address] [place] [address] Office: [phone] Inpatient E&M: 06935 Subs Hosp L2
--- NOTE | 2020-06-19 10:28 | PCM.PN.HOSP ---
Patient Problems: Active and Suspected Problems (Last Reviewed 06/17/20 @ 15:51 by Kelli LEON, PAAnitha) Acute pancreatitis (Acute) CANDY (acute kidney injury) (Acute) Subjective: Patient seen and examined. He says abdominal pain got much better yesterday but then he had a recurrence of the last night. This time pain was mainly in his left lower quadrant. He denies any nausea or vomiting and states of the moment, pain is much better. Review of systems otherwise negative. He has remained hemodynamically stable. Vitals/I&O's: Vital Signs Temp Pulse Resp BP Pulse Ox 98.0 F 71 18 149/88 H 100 06/19/20 09:05 06/19/20 09:05 06/19/20 09:05 06/19/20 09:05 06/19/20 09:14 Oxygen Delivery Method Room Air Weight: 204 lb 12.951 oz Body Mass Index (BMI) 26.2 Intake and Output for Last 24 Hours 06/17/20 06/18/20 06/19/20 23:59 23:59 23:59 Intake Total 3676 / 3676 3855 / 3855 1655.0 / 1655.0 Balance 3676 / 3676 3855 / 3855 1655.0 / 1655.0 General: Alert, Oriented x3, Cooperative, No apparent distress HEENT: Atraumatic, PERRLA, EOMI, Normocephalic Oral: Dry Mucosa Neck: Supple, No JVD, Negative Carotid Bruits Lungs: Clear to auscultation, Normal air movement, No rhonchi, No wheeze, No rales Cardiovascular: Regular rate, Regular Rhythm, Normal S1, Normal S2, No murmurs Abdomen: Bowel Sounds Present, Soft, - - minimal epigastric tenderness, no guarding or rebound tenderness. Extremities: No clubbing, No cyanosis, No edema, Capillary Refill Less than 3 Seconds Skin: No rashes, No breakdown Musculoskeletal: No Tenderness to Palpation of Joints or Extremities Lymphatic: No Cervical, Supraclavicular, or Inguinal Adenopathy Neurological: Cranial nerves II-XII grossly intact, Neuro grossly intact, Motor Exam 5/5 strength throughout Psych/Mental Status: Normal Affect, Appropriate, Alert and oriented to time, place, person, mood and affect Microbiology Past 72 Hours 06/17/20 13:55 Blood Culture (Wb) - Right Hand Blood Culture - Preliminary No growth in 48 hours. 06/17/20 12:40 Blood Culture (Wb) - Anticubital Right Blood Culture - Preliminary No growth in 48 hours. 06/17/20 11:52 Mucosa - Nose SARS-CoV-2 Antigen (Rapid) - Final Current Medications Acetaminophen (Acetaminophen 325 Mg Tablet) 650 mg PO Q6H PRN PRN PRN Reason: Pain Score 1-10/Temp > 100.7 F Al Hydroxide/Mg Hydroxide (Mag Hydrox/Al Hydrox/Simeth 30 Ml Udc) 30 ml PO Q6H PRN PRN PRN Reason: Gastric Burning Albuterol Sulfate (Albuterol 2.5 Mg/3 Ml Vial.Neb.) 2.5 mg INHALATION Q2H PRN PRN PRN Reason: Dyspnea, wheezing Carvedilol (Carvedilol 25 Mg Tablet) 25 mg PO BIDCM [facility] Last Admin: 06/19/20 09:08 Dose: 25 mg Documented by: Fentanyl Citrate (Fentanyl 100 Mcg/2 Ml Ampul) 50 mcg IV Q2H PRN PRN PRN Reason: severe pain 6-10/10 if hypotensive Folic Acid (Folic Acid 1 Mg Tablet) 1 mg PO DAILY@0800 [facility] Stop: 06/20/20 08:01 Last Admin: 06/19/20 09:08 Dose: 1 mg Documented by: Guaifenesin (Guaifenesin 10 Ml Udc (200mg/10ml)) 20 ml PO Q4H PRN PRN PRN Reason: COUGH Heparin Sodium (Porcine) (Heparin Injection (Vial) 5,000 Unit/Ml Vial) 5,000 unit SC Q12 [facility] Last Admin: 06/19/20 09:06 Dose: 5,000 unit Documented by: Hydralazine HCl (Hydralazine 20 Mg/Ml Vial) 10 mg IV Q4H PRN PRN PRN Reason: SBP > 160 Hydromorphone HCl (Hydromorphone 0.5 Mg/0.5 Ml Syringe) 0.5 mg IV Q4H PRN PRN PRN Reason: Pain Score 6-10 Last Admin: 06/19/20 06:19 Dose: 0.5 mg Documented by: Sodium Chloride () 1,000 mls @ 150 mls/hr IV .Q6H40M [facility] Last Infusion: 06/19/20 09:30 Dose: 150 mls/hr Documented by: Pantoprazole Sodium 40 mg/ (Sodium Chloride) 110 mls @ 330 mls/hr IV Q12 [facility] Last Infusion: 06/19/20 09:30 Dose: Infused Documented by: Lorazepam (Lorazepam 1 Mg Tablet) 2 mg PO Q2H PRN PRN; Protocol PRN Reason: CIWA score > 8 but <15 Lorazepam (Lorazepam 1 Mg Tablet) 2 mg PO UD PRN; Protocol PRN Reason: CIWA score >/=15. Lorazepam (Lorazepam 2 Mg/Ml Syringe) 2 mg IV Q2H PRN PRN; Protocol PRN Reason: CIWA score > 8 but <15 Lorazepam (Lorazepam 2 Mg/Ml Syringe) 2 mg IV UD PRN; Protocol PRN Reason: CIWA score >/=15. Magnesium Hydroxide (Magnesium Hydroxide 30 Ml Udc) 30 ml PO DAILY PRN PRN PRN Reason: Constipation Multivitamins/Minerals (Multivitamins,Ther W-Minerals Tablet) [facility] Last Admin: 06/19/20 09:08 Dose: 1 tablet Documented by: Nicotine (Nicotine 14 Mg Patch) 14 mg TD DAILY [facility] Last Admin: 06/19/20 09:09 Dose: 14 mg Documented by: Nitroglycerin (Nitroglycerin (Inpatient Use) 0.4 Mg Tab.Subl) 0.4 mg SUBLINGUAL Q5M PRN PRN Reason: CARDIAC/CHEST PAIN Ondansetron HCl (Ondansetron 4 Mg/2 Ml Vial) 4 mg IV Q8H PRN PRN PRN Reason: NAUSEA/VOMITING Oxycodone HCl (Oxycodone 5 Mg Tablet) 5 mg PO Q4H PRN PRN PRN Reason: Pain Score 4-5 Prochlorperazine Edisylate (Prochlorperazine 10 Mg/2 Ml Vial) 5 mg IV Q4H PRN PRN PRN Reason: Breakthrough Nausea/Vomiting Psyllium Hydrophilic Mucilloid (Psyllium 1 Packet) 1 packet PO DAILY PRN PRN PRN Reason: Constipation Senna/Docusate Sodium (Senna/Docusate Sodium 1 Tablet) 2 tablet PO BID PRN PRN PRN Reason: Constipation Sodium Chloride (0.9% Saline Lock 10 Ml Syringe) 10 - 40 ml IV UD PRN PRN Reason: SALINE FLUSH Last Admin: 06/19/20 06:19 Dose: 10 ml Documented by: Temazepam (Temazepam 15 Mg Capsule) 15 mg PO QHS PRN PRN PRN Reason: INSOMNIA Thiamine HCl (Thiamine Hydrochloride 100 Mg Tablet) 100 mg PO BIDCM [facility] Stop: 06/20/20 08:01 Last Admin: 06/19/20 09:08 Dose: 100 mg Documented by: Throat Lozenges (Benzocaine/Menthol 1 Lozenge) 1 lozenge MUCOUS MEM Q2H PRN PRN PRN Reason: SORE THROAT STROKE Vital Signs/Narrative: Vital Signs Temp Pulse Resp BP Pulse Ox 06/19/20 09:14 100 06/19/20 09:05 98.0 F 71 18 149/88 H 100 06/19/20 07:00 82 06/19/20 06:46 99 Medical Necessity - Tobacco Use Smoking Status: Current every day smoker - Patient with ongoing tobacco use specifically cigars which he buys in a 2 pack and notes he smokes 4 cigars daily. Tobacco Use: Cigars Assessment/Plan All Active Problems (Last Reviewed 06/17/20 @ 15:51 by Kelli LEON, PA-C) Acute pancreatitis (Acute) CANDY (acute kidney injury) (Acute) #Acute pancreatitis due to alcohol abuse will start on full liquid diet, and advance as tolerated. on IV fluids and IV fentanyl for pain. CBC pending today #Hypokalemia: potassium pending today. Will monitor #Heart failure with reduced ejection fraction and nonischemic cardiomyopathy On aspirin and Coreg. Lasix and CAITLYN inhibitor on hold on account of CANDY. 2D echo from 2018 showed EF of 40% with normal left ventricular size and stage I diastolic dysfunction with mild global hypokinesis of the left ventricle #Hypertension: On Coreg. Lasix and lisinopril on hold on account of CANDY #Hyperlipidemia: cholesterol is 109,. TGs are 423, and HDL is 14. LDL nad VLDL couldnt be measured. lipase down to 836 #History of alcohol abuse: On alcohol withdrawal protocol with Ativan. On thiamine and folic acid as well as Multivite's. Not in acute withdrawal #History of nicotine dependence: Nicotine patch. counseled to quit. DVT prophylaxis: heparin Inpatient E&M: 63862 Subs Hosp L2
[2020-06-19 11:59] LABS: Absolute Lymphocyte Count 1.58 X10^3/uL (0.83-4.51); Absolute Neutrophil Count 7.6 X10^3/uL (2.0-7.7); Basophil# 0.08 X10^3/uL; Basophil% 0.7 % (0-1); Eosinophil# 0.08 X10^3/uL; Eosinophils% 0.7 % (0-5); Hematocrit 32.8 % (40-54); Hemoglobin 10.9 g/dL (13.0-16.5); Lymphocyte # 1.58 X10^3/ul (4.0); Mean Corp Hgb Conc 33.2 g/dL (32-36); Mean Corpuscular Hgb 29.3 pg (27.0-32.0); Mean Corpuscular Volume 88.2 fL (80-94); Mean Platelet Vol. 11.1 fl (6.2-12.0); Monocyte# 1.63 X10^3/uL; Monocyte% 14.4 % (0-10); NRBC Flagged by Analyzer 0.2 % (0-5); Neutrophil # 7.64 X10^3/uL (2.7-7.7); Neutrophil % 67.6 % (47-70); POSITIVE DIFFERENTIAL YES; POSITIVE MORPHOLOGY YES; Platelet Count 187 K/mm3 (150-450); RBC Distribution Width CV 15.4 % (11.6-14.6); RBC Distribution Width SD 48.8 fl (35.1-43.9); Red Blood Count 3.72 M/mm3 (4.6-6.2); White Blood Count 11.3 K/mm3 (4.4-11.0)
[2020-06-19 12:00] LABS: Differential Indicated SCAN CRITERIA MET
[2020-06-19 12:39] LABS: Anion Gap 3 (5-15); BUN 19 mg/dL (7-18); BUN/Creat Ratio 21.6 RATIO (10-20); Calcium,Total 8.3 mg/dL (8.5-10.1); Chloride 108 mmol/L (98-107); Creatinine, Serum 0.88 mg/dL (0.70-1.30); EST Glomerular Filtration Rate 97 mL/min (>60); Est Glom Filt Rate - Afr Amer 118 mL/min (>60); Estimated Creatinine Clearance 110.23 ml/min; Glucose 138 mg/dL (74-106); Sodium Level 136 mmol/L (136-145)
[2020-06-19 12:47] LABS: Lipase 442 U/L (73-393)
[2020-06-19 12:49] LABS: Platelet Estimate ADEQUATE (ADEQ); Platelet Morphology LARGE
[2020-06-19] MEDS: Magnesium Hydroxide 30 ML UDC PO (16:10)
[2020-06-19] MEDS: oxyCODONE 5 MG Tablet PO (20:33)
[2020-06-20] VITALS (9 sets, daily range): BP systolic 145–158; BP diastolic 77–100; PULSE 63–83; RESP 16–18; TEMP 37–37.2; O2SAT 98–100
[2020-06-20] MEDS: oxyCODONE 5 MG Tablet PO ×3 (02:52→13:16)
[2020-06-20] MEDS: 0.9% Normal Saline 1,000 ML 150 ML IV ×2 (02:52→10:45)
[2020-06-20 04:19] LABS: Absolute Lymphocyte Count 2.12 X10^3/uL (0.83-4.51); Absolute Neutrophil Count 5.6 X10^3/uL (2.0-7.7); Basophil# 0.06 X10^3/uL; Basophil% 0.6 % (0-1); Eosinophil# 0.11 X10^3/uL; Hematocrit 30.6 % (40-54); Hemoglobin 10.1 g/dL (13.0-16.5); Lymphocyte # 2.12 X10^3/ul (4.0); Lymphocyte % 19.9 % (19-41); Mean Corpuscular Hgb 28.7 pg (27.0-32.0); Mean Corpuscular Volume 86.9 fL (80-94); Monocyte# 2.21 X10^3/uL; Monocyte% 20.8 % (0-10); NRBC Flagged by Analyzer 0.2 % (0-5); Neutrophil # 5.62 X10^3/uL (2.7-7.7); Neutrophil % 52.9 % (47-70); POSITIVE DIFFERENTIAL YES; POSITIVE MORPHOLOGY YES; Platelet Count 176 K/mm3 (150-450); RBC Distribution Width SD 47.2 fl (35.1-43.9); Red Blood Count 3.52 M/mm3 (4.6-6.2); White Blood Count 10.6 K/mm3 (4.4-11.0)
[2020-06-20 04:26] LABS: Differential Indicated SCAN CRITERIA MET
[2020-06-20 04:37] LABS: Anion Gap 6 (5-15); BUN 11 mg/dL (7-18); BUN/Creat Ratio 16.7 RATIO (10-20); Calcium,Total 8.2 mg/dL (8.5-10.1); Chloride 106 mmol/L (98-107); Creatinine, Serum 0.66 mg/dL (0.70-1.30); EST Glomerular Filtration Rate 136 mL/min (>60); Est Glom Filt Rate - Afr Amer 165 mL/min (>60); Estimated Creatinine Clearance 146.97 ml/min; Glucose 123 mg/dL (74-106); Potassium 3.3 mmol/L (3.5-5.1); Sodium Level 135 mmol/L (136-145)
[2020-06-20] MEDS: Multivitamins,Ther W-Minerals Tablet 1 TABLET PO (08:54)
[2020-06-20] MEDS: Thiamine Hydrochloride 100 MG Tablet PO (08:54)
[2020-06-20] MEDS: Carvedilol 25 MG Tablet PO ×2 (08:54→16:47)
[2020-06-20] MEDS: Heparin Injection (Vial) 5,000 UNIT/ML VIAL 5000 UNIT SC ×2 (08:54→21:24)
[2020-06-20] MEDS: Folic Acid 1 MG Tablet PO (08:54)
--- NOTE | 2020-06-20 13:25 | PN_ITS ---
Patient Problems: Active and Suspected Problems (Last Reviewed 06/17/20 @ 15:51 by Kelli LEON, PAManjitC) Acute pancreatitis (Acute) CANDY (acute kidney injury) (Acute) Subjective: Patient seen and examined. He still complains of pain in his left flank which was worse last night, but is much better. He was unable to tolerate advancement of his diet, due to pain. Review of systems is otherwise negative. Pain is much better today. Vitals/I&O's: Vital Signs Temp Pulse Resp BP Pulse Ox 98.8 F 67 18 158/82 H 100 06/20/20 08:50 06/20/20 08:50 06/20/20 08:50 06/20/20 08:50 06/20/20 09:00 Oxygen Delivery Method Room Air Weight: 201 lb 15.095 oz Body Mass Index (BMI) 26.2 Intake and Output for Last 24 Hours 06/18/20 06/19/20 06/20/20 23:59 23:59 23:59 Intake Total 3855 / 3855 4317.5 / 4317.5 2707 / 2707 Balance 3855 / 3855 4317.5 / 4317.5 2707 / 2707 General: Alert, Oriented x3, Cooperative, No apparent distress HEENT: Atraumatic, PERRLA, EOMI, Normocephalic Oral: Dry Mucosa Neck: Supple, No JVD, Negative Carotid Bruits Lungs: Clear to auscultation, Normal air movement, No rhonchi, No wheeze, No rales Cardiovascular: Regular rate, Regular Rhythm, Normal S1, Normal S2, No murmurs Abdomen: Bowel Sounds Present, Soft, - - minimal epigastric tenderness, moderate left flank tenderness, no guarding or rebound tenderness. Extremities: No clubbing, No cyanosis, No edema, Capillary Refill Less than 3 Seconds Skin: No rashes, No breakdown Musculoskeletal: No Tenderness to Palpation of Joints or Extremities Lymphatic: No Cervical, Supraclavicular, or Inguinal Adenopathy Neurological: Cranial nerves II-XII grossly intact, Neuro grossly intact, Motor Exam 5/5 strength throughout Psych/Mental Status: Normal Affect, Appropriate, Alert and oriented to time, place, person, mood and affect Microbiology Past 72 Hours 06/17/20 13:55 Blood Culture (Wb) - Right Hand Blood Culture - Preliminary No growth in 48 hours. 06/17/20 12:40 Blood Culture (Wb) - Anticubital Right Blood Culture - Preliminary No growth in 48 hours. 06/17/20 11:52 Mucosa - Nose SARS-CoV-2 Antigen (Rapid) - Final Laboratory Results 06/19/20 11:35: Diff Path Review October06/20/20 03:39: WBC 10.6, RBC 3.52 L, Hgb 10.1 L, Hct 30.6 L, MCV 86.9, MCH 28.7, MCHC 33.0, RDW Std Deviation 47.2 H, RDW Coeff of Danitza 15.0 H, Plt Count 176, MPV 11.0, Immature Gran % (Auto) 4.800 H, Neut % (Auto) 52.9, Lymph % (Auto) 19.9, [place] % (Auto) 20.8 H, Eos % (Auto) 1.0, Baso % (Auto) 0.6, Absolute Neuts (auto) 5.6, Absolute Lymphs (auto) 2.12, Nucleated RBC % 0.2 06/20/20 03:39: Sodium 135 L, Potassium 3.3 L, Chloride 106, Carbon Dioxide 23.0, Anion Gap 6, BUN 11, Creatinine 0.66 L, Estim Creat Clear Calc 146.97, Est GFR (MDRD) Af Amer 165, Est GFR (MDRD) Non-Af 136, BUN/Creatinine Ratio 16.7, Glucose 123 H, Calcium 8.2 L Current Medications Acetaminophen (Acetaminophen 325 Mg Tablet) 650 mg PO Q6H PRN PRN PRN Reason: Pain Score 1-10/Temp > 100.7 F Al Hydroxide/Mg Hydroxide (Mag Hydrox/Al Hydrox/Simeth 30 Ml Udc) 30 ml PO Q6H PRN PRN PRN Reason: Gastric Burning Albuterol Sulfate (Albuterol 2.5 Mg/3 Ml Vial.Neb.) 2.5 mg INHALATION Q2H PRN PRN PRN Reason: Dyspnea, wheezing Carvedilol (Carvedilol 25 Mg Tablet) 25 mg PO BIDCM [facility] Last Admin: 06/20/20 08:54 Dose: 25 mg Documented by: Guaifenesin (Guaifenesin 10 Ml Udc (200mg/10ml)) 20 ml PO Q4H PRN PRN PRN Reason: COUGH Heparin Sodium (Porcine) (Heparin Injection (Vial) 5,000 Unit/Ml Vial) 5,000 unit SC Q12 [facility] Last Admin: 06/20/20 08:54 Dose: 5,000 unit Documented by: Hydralazine HCl (Hydralazine 20 Mg/Ml Vial) 10 mg IV Q4H PRN PRN PRN Reason: SBP > 160 Sodium Chloride () 1,000 mls @ 150 mls/hr IV .Q6H40M [facility] Last Admin: 06/20/20 10:45 Dose: 150 mls/hr Documented by: Pantoprazole Sodium 40 mg/ (Sodium Chloride) 110 mls @ 330 mls/hr IV Q12 [facility] Last Infusion: 06/20/20 09:30 Dose: Infused Documented by: Lorazepam (Lorazepam 1 Mg Tablet) 2 mg PO Q2H PRN PRN; Protocol PRN Reason: CIWA score > 8 but <15 Lorazepam (Lorazepam 1 Mg Tablet) 2 mg PO UD PRN; Protocol PRN Reason: CIWA score >/=15. Lorazepam (Lorazepam 2 Mg/Ml Syringe) 2 mg IV Q2H PRN PRN; Protocol PRN Reason: CIWA score > 8 but <15 Lorazepam (Lorazepam 2 Mg/Ml Syringe) 2 mg IV UD PRN; Protocol PRN Reason: CIWA score >/=15. Magnesium Hydroxide (Magnesium Hydroxide 30 Ml Udc) 30 ml PO DAILY PRN PRN PRN Reason: Constipation Last Admin: 06/19/20 16:10 Dose: 30 ml Documented by: Multivitamins/Minerals (Multivitamins,Ther W-Minerals Tablet) [facility] Last Admin: 06/20/20 08:54 Dose: 1 tablet Documented by: Nicotine (Nicotine 14 Mg Patch) 14 mg TD DAILY [facility] Last Admin: 06/20/20 08:54 Dose: 14 mg Documented by: Nitroglycerin (Nitroglycerin (Inpatient Use) 0.4 Mg Tab.Subl) 0.4 mg SUBLINGUAL Q5M PRN PRN Reason: CARDIAC/CHEST PAIN Ondansetron HCl (Ondansetron 4 Mg/2 Ml Vial) 4 mg IV Q8H PRN PRN PRN Reason: NAUSEA/VOMITING Oxycodone HCl (Oxycodone 5 Mg Tablet) 5 mg PO Q4H PRN PRN PRN Reason: Pain Score 4-5 Last Admin: 06/20/20 13:16 Dose: 5 mg Documented by: Prochlorperazine Edisylate (Prochlorperazine 10 Mg/2 Ml Vial) 5 mg IV Q4H PRN PRN PRN Reason: Breakthrough Nausea/Vomiting Psyllium Hydrophilic Mucilloid (Psyllium 1 Packet) 1 packet PO DAILY PRN PRN PRN Reason: Constipation Senna/Docusate Sodium (Senna/Docusate Sodium 1 Tablet) 2 tablet PO BID PRN PRN PRN Reason: Constipation Sodium Chloride (0.9% Saline Lock 10 Ml Syringe) 10 - 40 ml IV UD PRN PRN Reason: SALINE FLUSH Last Admin: 06/19/20 16:15 Dose: 10 ml Documented by: Temazepam (Temazepam 15 Mg Capsule) 15 mg PO QHS PRN PRN PRN Reason: INSOMNIA Throat Lozenges (Benzocaine/Menthol 1 Lozenge) 1 lozenge MUCOUS MEM Q2H PRN PRN PRN Reason: SORE THROAT Medical Necessity - Tobacco Use Smoking Status: Current every day smoker - Patient with ongoing tobacco use specifically cigars which he buys in a 2 pack and notes he smokes 4 cigars daily. Tobacco Use: Cigars Assessment/Plan All Active Problems (Last Reviewed 06/17/20 @ 15:51 by Kelli LEON, PA-C) Acute pancreatitis (Acute) CANDY (acute kidney injury) (Acute) #Acute pancreatitis due to alcohol abuse * will start on full liquid diet, and advance as tolerated. * on IV fluids and IV fentanyl for pain. * wbc down to 10.6 * #Hypokalemia: potassium is 3.3 today. WIll replace and trend. #Heart failure with reduced ejection fraction and nonischemic cardiomyopathy * On aspirin and Coreg. resume lasix and jose alberto-i now CANDY since CANDY has resolved. * 2D echo from 2018 showed EF of 40% with normal left ventricular size and stage I diastolic dysfunction with mild global hypokinesis of the left ventricle * #Hypertension: On Coreg. Lasix and lisinopril on hold on account of CANDY #Hyperlipidemia: * cholesterol is 109,. TGs are 423, and HDL is 14. LDL and VLDL couldnt be measured. * lipase down to 442. * Consider starting statins after acute pancreatitis has resolved. #History of alcohol abuse: On alcohol withdrawal protocol with Ativan. On thiamine and folic acid as well as Multivite's. Not in acute withdrawal #History of nicotine dependence: Nicotine patch. counseled to quit. DVT prophylaxis: heparin Inpatient E&M: 41237 Subs Hosp L2
[2020-06-20] MEDS: oxyCODONE 5 MG Tablet 10 MG PO ×2 (18:00→22:00)
[2020-06-20] MEDS: 0.9% Saline Lock 10 ML Syringe IV (21:12)
[2020-06-21] VITALS (7 sets, daily range): BP systolic 139–159; BP diastolic 87–90; PULSE 84–102; RESP 16–18; TEMP 37–38.2; O2SAT 98–99
[2020-06-21] MEDS: oxyCODONE 5 MG Tablet 10 MG PO ×3 (03:36→14:39)
[2020-06-21 05:49] LABS: Hematocrit 31.6 % (40-54); Hemoglobin 10.5 g/dL (13.0-16.5); Mean Corp Hgb Conc 33.2 g/dL (32-36); Mean Corpuscular Hgb 28.9 pg (27.0-32.0); Mean Corpuscular Volume 87.1 fL (80-94); Mean Platelet Vol. 10.5 fl (6.2-12.0); POSITIVE COUNT YES; POSITIVE DIFFERENTIAL YES; POSITIVE MORPHOLOGY YES; Platelet Count 232 K/mm3 (150-450); RBC Distribution Width CV 14.5 % (11.6-14.6); RBC Distribution Width SD 46.2 fl (35.1-43.9); Red Blood Count 3.63 M/mm3 (4.6-6.2); White Blood Count 14.8 K/mm3 (4.4-11.0)
[2020-06-21 05:54] LABS: Differential Indicated MANUAL DIFF
[2020-06-21 06:06] LABS: Anion Gap 6 (5-15); BUN 6 mg/dL (7-18); Calcium,Total 8.4 mg/dL (8.5-10.1); Chloride 104 mmol/L (98-107); Creatinine, Serum 0.75 mg/dL (0.70-1.30); EST Glomerular Filtration Rate 117 mL/min (>60); Est Glom Filt Rate - Afr Amer 142 mL/min (>60); Estimated Creatinine Clearance 129.33 ml/min; Glucose 135 mg/dL (74-106); Potassium 3.6 mmol/L (3.5-5.1); Sodium Level 134 mmol/L (136-145)
[2020-06-21 06:10] LABS: Lymphocyte 23 % (19-41); Metamyelocyte 5 % (0-1); Monocyte 10 % (0-10); Neutrophil-Band 1 % (0-5); Neutrophil-Segmented 60 % (47-70); Total Cells Counted 100 (MANUAL DIFF)
[2020-06-21 06:11] LABS: Platelet Estimate ADEQUATE (ADEQ); Red Cell Morphology NORM C+C NORMAL (NORM C&C)
[2020-06-21] MEDS: Acetaminophen 325 MG Tablet 650 MG PO (08:56)
[2020-06-21 09:33] LABS: Lipase 413 U/L (73-393)
[2020-06-21] MEDS: Carvedilol 25 MG Tablet PO (10:21)
[2020-06-21] MEDS: Folic Acid 1 MG Tablet PO (10:21)
[2020-06-21] MEDS: Multivitamins,Ther W-Minerals Tablet 1 TABLET PO (10:22)
[2020-06-21] MEDS: Heparin Injection (Vial) 5,000 UNIT/ML VIAL 5000 UNIT SC (10:23)
[2020-06-21] MEDS: Cyanocobalamin 500 MCG Tablet PO (10:23)
[2020-06-21] MEDS: Furosemide 40 MG Tablet PO (10:23)
[2020-06-21] MEDS: Lisinopril 5 MG Tablet PO (10:24)
[2020-06-21] MEDS: 0.9% Saline Lock 10 ML Syringe IV (10:26)
--- NOTE | 2020-06-21 10:39 | PN.SURG_ITS ---
Patient Problems: Active and Suspected Problems (Last Reviewed 06/17/20 @ 15:51 by Kelli LEON, PAManjitC) Acute pancreatitis (Acute) CANDY (acute kidney injury) (Acute) Subjective: Patient evaluated resting comfortably in bed. He notes left flank pain. No further radiating abdominal pain. He denies urinary symptoms. Was not able to tolerate diet on Sunday. Tolerated clear liquids. He was restarted on solid foods today. - Physical Exam Vitals/I&O's: Vital Signs Temp Pulse Resp BP Pulse Ox 98.6 F 85 16 139/90 H 99 06/21/20 08:50 06/21/20 08:50 06/21/20 08:50 06/21/20 08:50 06/21/20 08:50 Oxygen Delivery Method Room Air Weight: 212 lb 15.465 oz Body Mass Index (BMI) 26.2 Intake and Output for Last 24 Hours 06/19/20 06/20/20 06/21/20 23:59 23:59 23:59 Intake Total 4317.5 / 4317.5 4572 / 4572 220 / 220 Balance 4317.5 / 4317.5 4572 / 4572 220 / 220 General: Alert, Oriented x3, Cooperative Abdomen: Bowel Sounds Present, Tender - left flank/side Microbiology Past 72 Hours 06/17/20 13:55 Blood Culture (Wb) - Right Hand Blood Culture - Preliminary No growth in 48 hours. 06/17/20 12:40 Blood Culture (Wb) - Anticubital Right Blood Culture - Preliminary No growth in 48 hours. Laboratory Results 06/21/20 05:30: WBC 14.8 H, RBC 3.63 L, Hgb 10.5 L, Hct 31.6 L, MCV 87.1, MCH 28.9, MCHC 33.2, RDW Std Deviation 46.2 H, RDW Coeff of Danitza 14.5, Plt Count 232, MPV 10.5, Neut % (Auto) Not Reportable, Absolute Neuts (auto) 9.0 H, Absolute Lymphs (auto) 3.40, Total Counted 100, Neutrophils % (Manual) 60, Band Neutrophils % 1, Lymphocytes % (Manual) 23, Monocytes % (Manual) 10, Metamyelocytes % 5 H, Diff Path Review October, Platelet Estimate ADEQUATE, RBC Morphology NORM C+C 06/21/20 05:30: Sodium 134 L, Potassium 3.6, Chloride 104, Carbon Dioxide 24.0, Anion Gap 6, BUN 6 L, Creatinine 0.75, Estim Creat Clear Calc 129.33, Est GFR (MDRD) Af Amer 142, Est GFR (MDRD) Non-Af 117, BUN/Creatinine Ratio 8.0 L, Glucose 135 H, Calcium 8.4 L 06/21/20 05:30: Lipase 413 H Current Medications Acetaminophen (Acetaminophen 325 Mg Tablet) 650 mg PO Q6H PRN PRN PRN Reason: Pain Score 1-10/Temp > 100.7 F Last Admin: 06/21/20 08:56 Dose: 650 mg Documented by: Albuterol Sulfate (Albuterol 2.5 Mg/3 Ml Vial.Neb.) 2.5 mg INHALATION Q2H PRN PRN PRN Reason: Dyspnea, wheezing Carvedilol (Carvedilol 25 Mg Tablet) 25 mg PO BIDCM [facility] Last Admin: 06/21/20 10:21 Dose: 25 mg Documented by: Cyanocobalamin (Cyanocobalamin 500 Mcg Tablet) 500 mcg PO DAILY [facility] Last Admin: 06/21/20 10:23 Dose: 500 mcg Documented by: Folic Acid (Folic Acid 1 Mg Tablet) 1 mg PO DAILY@0800 [facility] Last Admin: 06/21/20 10:21 Dose: 1 mg Documented by: Furosemide (Furosemide 40 Mg Tablet) 40 mg PO DAILY [facility] Last Admin: 06/21/20 10:23 Dose: 40 mg Documented by: Heparin Sodium (Porcine) (Heparin Injection (Vial) 5,000 Unit/Ml Vial) 5,000 unit SC Q12 [facility] Last Admin: 06/21/20 10:23 Dose: 5,000 unit Documented by: Pantoprazole Sodium 40 mg/ (Sodium Chloride) 110 mls @ 330 mls/hr IV Q12 [facility] Last Admin: 06/21/20 10:29 Dose: 330 mls/hr Documented by: Lisinopril (Lisinopril 5 Mg Tablet) 5 mg PO DAILY [facility] Last Admin: 06/21/20 10:24 Dose: 5 mg Documented by: Lorazepam (Lorazepam 1 Mg Tablet) 2 mg PO Q2H PRN PRN; Protocol PRN Reason: CIWA score > 8 but <15 Multivitamins/Minerals (Multivitamins,Ther W-Minerals Tablet) [facility] Last Admin: 06/21/20 10:22 Dose: 1 tablet Documented by: Nicotine (Nicotine 14 Mg Patch) 14 mg TD DAILY [facility] Last Admin: 06/21/20 10:23 Dose: 14 mg Documented by: Ondansetron HCl (Ondansetron 4 Mg/2 Ml Vial) 4 mg IV Q8H PRN PRN PRN Reason: NAUSEA/VOMITING Oxycodone HCl (Oxycodone 5 Mg Tablet) 10 mg PO Q4H PRN PRN PRN Reason: Pain Score 4-10 Last Admin: 06/21/20 08:56 Dose: 10 mg Documented by: Psyllium Hydrophilic Mucilloid (Psyllium 1 Packet) 1 packet PO DAILY PRN PRN PRN Reason: Constipation Sodium Chloride (0.9% Saline Lock 10 Ml Syringe) 10 - 40 ml IV UD PRN PRN Reason: SALINE FLUSH Last Admin: 06/21/20 10:26 Dose: 20 ml Documented by: Temazepam (Temazepam 15 Mg Capsule) 15 mg PO QHS PRN PRN PRN Reason: INSOMNIA Medical Necessity - Tobacco Use Smoking Status: Current every day smoker - Patient with ongoing tobacco use specifically cigars which he buys in a 2 pack and notes he smokes 4 cigars daily. Tobacco Use: Cigars Assessment/Plan All Active Problems (Last Reviewed 06/17/20 @ 15:51 by Kelli LEON, PA-C) Acute pancreatitis (Acute) CANDY (acute kidney injury) (Acute) I am following this patient in conjunction with Dr. Riley Impression: Alcoholic acute pancreatitis Lipase continue to trend down, 314. Discussed patient with Dr. Riley Agree with diet advancement No surgical intervention planned We will sign off at this time Please re-consult if needed Thank you for allowing us to participate in this patient's care Inpatient E&M: 88062 Subs Hosp L1
--- NOTE | 2020-06-21 13:50 | DCINST_ITS ---
- Discharge Diagnoses Current Active Problems: Current Active and Chronic Problems (Last Reviewed 06/17/20 @ 15:51 by Kelli LEON, PAManjitC) HLD (hyperlipidemia) (Chronic) Acute pancreatitis (Acute) CANDY (acute kidney injury) (Acute) Essential (primary) hypertension (Chronic) Chronic systolic CHF (congestive heart failure), NYHA class 2 (Chronic) Cardiomyopathy, dilated, nonischemic (Chronic) Alcohol abuse (Chronic) Tobacco abuse (Chronic) You will use the following diet at home:: No restrictions Your food should be the consistency of: Regular Your liquids should be the consistency of: Regular/Thin Discharge Activity: Return to Normal Activity Return to work on:: 07/05/20 Weight Bearing Status: Full weight bearing Additional Instructions: no alcohol Allergies/Adverse Reactions: Allergies No Known Allergies Allergy (Verified 06/17/20 10:57) Medications to take at Discharge Carvedilol 25 mg PO BID 06/17/20 Cyanocobalamin (Vitamin B-12) [Vitamin B-12] 500 mcg PO DAILY 06/17/20 Folic Acid 1 mg PO DAILY 06/17/20 Furosemide 40 mg PO DAILY 06/17/20 Lisinopril 5 mg PO DAILY 06/17/20 Multivitamins,Therapeutic [Multivitamin] 1 tab PO DAILY 06/17/20 Nicotine [Nicoderm] 14 mg TD DAILY #30 patch 06/21/20 Oxycodone [Oxyir] 10 mg PO Q4H PRN PRN 7 Days #30 tablet 06/21/20 The following prescriptions were given: Nicotine [Nicoderm] 14 mg TD DAILY #30 patch Transmission Status: [facility] to [id number] Oxycodone [Oxyir] 10 mg PO Q4H PRN PRN 7 Days #30 tablet PRN Reason: Pain Score 4-10 Transmission Status: Received by [id number] Primary Care Physician: Sukumar Tay MD [Primary Care Provider] - Please follow up with your Primary Care Physician in: in 1-2 weeks Test Results: Test results from this visit will be discussed in further detail at your follow- up appointment, if applicable. Please Follow Up With: Santiago Olivier MD When: in 3 months
[2020-06-21 15:16] LABS: Pathologist Review Reviewed
[2020-06-21 15:23] LABS: Pathologist Review Reviewed
--- NOTE | 2020-06-21 16:28 | NURSING ---
Charting by Sally Becker RN reviewed by this RN.
--- NOTE | 2020-06-22 14:40 | CASEMGMT ---
MEI ROSS Discharge F/U Phone Call LACE: 13 Strata: 3 Discharge date: 06/21/2020 Call date: 06/22/2020 Call time: [phone] Admission dx: Acute pancreatitis, hypotension Pt states is doing 'about the same' since discharge. Pt states no questions regarding discharge instructions/medications at this time. Pt states plans to see PCP next week. Pt states is off work until after the New Year. Pt voices no suggestions for [facility] at this time. Pt voices no further questions/concerns/needs at this time. [place] [facility]
--- NOTE | 2020-06-27 08:18 | PCM.DC.SUM ---
Discharge Date and Diagnosis - Problem List Patient Problems: Active and Suspected Problems (Last Reviewed 06/17/20 @ 15:51 by Kelli LEON PA-C) Acute pancreatitis (Acute) CANDY (acute kidney injury) (Acute) Date of Admission: 06/17/20 Date of Discharge: 06/21/20 - Primary Discharge Diagnosis Acute Problems: Active Problems (Last Reviewed 06/17/20 @ 15:51 by Kelli LEON PA-C) Acute pancreatitis (Acute) secondary to alcohol usage #2 hypokalemia #3 nonischemic cardiomyopathy #4 essential hypertension #5 hyperlipidemia #6 acute kidney injury - Secondary Discharge Diagnosis Chronic Problems: Chronic Problems (Last Reviewed 06/17/20 @ 15:51 by Kelli LEON PA-C) HLD (hyperlipidemia) (Chronic) Essential (primary) hypertension (Chronic) Chronic systolic CHF (congestive heart failure), NYHA class 2 (Chronic) Cardiomyopathy, dilated, nonischemic (Chronic) Non-rheumatic mitral regurgitation (Chronic) Alcohol abuse (Chronic) Tobacco abuse (Chronic) Hospital Course and Treatment Operations: None Procedures: None Summary of Care Provided: The patient is a 49 year old M who was seen in the emergency room at [facility] [place] with a chief complaint of abdominal pain, chills, fatigue, nausea and vomiting. He had been seen approximately 48 hours prior in the emergency room was discharged home, work-up in the emergency room included a CT of the abdomen and pelvis which showed findings consistent with acute pancreatitis and peripancreatic inflammatory changes, patient's lipase was elevated at 3274. Patient was admitted to PCU, IV fluids were administered and patient symptoms improved during his hospitalization. On 06/21/2020, patient was seen and examined: On examination he appeared in good health and spirits. Vital signs as documented. Skin warm and dry and without overt rashes. Neck without JVD, neck was supple, trachea midline, thyroid was normal. Lungs clear bilaterally, normal air movement was noted. Heart exam notable for regular rhythm, normal sounds and absence of murmurs, rubs or gallops. Abdomen unremarkable and without evidence of organomegaly, masses, or abdominal aortic enlargement. Bowel sounds are present, abdomen is not distended. Extremities nonedematous, no cyanosis was noted, no clubbing was noted. Neuro: Cranial nerves II through XII are grossly intact, no focal motor deficits were noted, sensation to light touch and pinprick intact, motor exam 5/5 throughout. Psych: Patient is alert and oriented x3, he does not appear anxious or depressed, he does not appear agitated. Patient was discharged home in stable condition on 06/21/2020. Patient Problems: Active and Suspected Problems (Last Reviewed 06/17/20 @ 15:51 by Kelli LEON, PAManjitC) Acute pancreatitis (Acute) CANDY (acute kidney injury) (Acute) - Physical Exam Vitals/I&O's: Vital Signs Temp Pulse Resp BP Pulse Ox 100 F H 102 H 16 159/87 H 98 06/21/20 16:09 06/21/20 15:30 06/21/20 15:30 06/21/20 15:30 06/21/20 15:30 Oxygen Delivery Method Room Air Weight: 96.6 kg Body Mass Index (BMI) 26.2 Discharge Activity: Return to Normal Activity Return to work on:: 07/05/20 Weight Bearing Status: Full weight bearing Home Medications: Medications to take at Discharge Carvedilol 25 mg PO BID 06/17/20 Cyanocobalamin (Vitamin B-12) [Vitamin B-12] 500 mcg PO DAILY 06/17/20 Folic Acid 1 mg PO DAILY 06/17/20 Furosemide 40 mg PO DAILY 06/17/20 Lisinopril 5 mg PO DAILY 06/17/20 Multivitamins,Therapeutic [Multivitamin] 1 tab PO DAILY 06/17/20 Nicotine [Nicoderm] 14 mg TD DAILY #30 patch 06/21/20 Oxycodone [Oxyir] 10 mg PO Q4H PRN PRN 7 Days #30 tab 06/21/20 Following Prescriptions Were Given to Patient: Nicotine [Nicoderm] 14 mg TD DAILY #30 patch Transmission Status: [id number] Oxycodone [Oxyir] 10 mg PO Q4H PRN PRN 7 Days #30 tab PRN Reason: Pain Score 4-10 Transmission Status: [id number] Primary Care Physician: Sukumar Tay MD [Primary Care Provider] - Please follow up with your Primary Care Physician in: in 1-2 weeks Please Follow Up With: Padmini Foss PA When: in 3 months Please Follow Up With: Garcia,Marie PA, PA Disposition: Home Minutes spent on discharge:: 31 Patient Condition:: Stable Medical Necessity - Tobacco Use Smoking Status: Current every day smoker - Patient with ongoing tobacco use specifically cigars which he buys in a 2 pack and notes he smokes 4 cigars daily. Tobacco Use: Cigars Meaningful Use Info Meaningful Use Diagnoses (Choose all that apply): None applicable Inpatient E&M: 89770 Disch Hosp
== END 2020-06-21 16:26 | disposition home or self-care (01) | DRG 439 ==
LOC: ED 11:29 → PCU 14:39
PROVIDERS: Physician Assistant; Student in an Organized Health Care Education/Training Program; Surgery; Admitting Provider Family Medicine; Emergency Provider Emergency Medicine; PCP Family Medicine; Visit Provider Internal Medicine
DX: K85.20 Alcohol induced acute pancreatitis without necrosis or infection (principal); I42.0 Dilated cardiomyopathy; I50.22 Chronic systolic (congestive) heart failure; N17.9 Acute kidney failure, unspecified; I11.0 Hypertensive heart disease with heart failure; E78.5 Hyperlipidemia, unspecified; F17.290 Nicotine dependence, other tobacco product, uncomplicated; E87.6 Hypokalemia
CPT/HCPCS: 36415; 71045; 74176; 76705; 80048; 80053; 80061; 80307; 80320; 83605; 83615; 83690; 83735; 84100; 84484; 85025; 85610; 85730; 87040; 87426; 93005; 97802; 99251; 99285; J7030; A4216; G0463; G0480

== ENCOUNTER 2020-06-28 08:41 | Emergency (ER) | payer BC, SELFPAY ==
[2020-06-17 16:45] VITALS: BMI 26.2
[2020-06-28 08:42] VITALS: BP 146/96; PULSE 109; RESP 18; TEMP 36.6; O2SAT 100; BMI 25.8
--- NOTE | 2020-06-28 09:08 | ED.VIS.GEN ---
History of Present Illness Chief Complaint: Abd Pain Informant: Patient Onset: Weeks Context: Gradual Onset Timing: Waxes and wanes Current Severity: Moderate Maximum Severity: Moderate Narrative: Patient returns to the ER secondary to abdominal pain. Patient was admitted to the hospital June 17 for pancreatitis. Patient states his pain is never really gone away and is recently started to worsen again. He does have some chills and will occasionally feel nauseated but has had no vomiting. He denies fever. He states his pancreatitis is secondary to alcohol use and he has not been drinking since discharge from the hospital. - Past Medical History (1) Cardiomyopathy, dilated, nonischemic Status: Chronic (2) Chronic systolic CHF (congestive heart failure), NYHA class 2 Status: Chronic (3) Essential (primary) hypertension Status: Chronic (4) HLD (hyperlipidemia) Status: Chronic (5) Non-rheumatic mitral regurgitation Status: Chronic Past Medical History - Allergies and Home Meds Allergies/Adverse Reactions: Allergies No Known Allergies Allergy (Verified 06/28/20 08:45) Primary Care Physician: Sukumar Tay MD [Primary Care Provider] - Prior records reviewed: Yes Surgical History: tonsillectomy, - - Back surgery ?3. Smoking Status: Former smoker - Family History Maternal Family History: Family History (Last Reviewed 06/17/20 @ 15:51 by Kelli LEON PA-C) Father Heart disease Alzheimer's dementia Mother congestive heart failure Cardiac aneurysm Family History: Reports: Heart Disease - There with a history of CHF and cardiac aneurysm. Paternal Family History: Family History (Last Reviewed 06/17/20 @ 15:51 by Kelli LEON PA-C) Father Heart disease Alzheimer's dementia Mother congestive heart failure Cardiac aneurysm Family History: Reports: Dementia, Heart Disease Review of Systems General: Reports: Chills. Denies: Fever Eyes: Denies: Visual changes - bilaterally ENT: Denies: Bilateral ear pain Cardiovascular: Denies: Chest pain Respiratory: Denies: Dyspnea, Cough Gastrointestinal: Reports: Abdominal pain, Nausea. Denies: Vomiting Genitourinary: Denies: Dysuria Musculoskeletal: Denies: Swelling, Extremity Pain Skin: Denies: Rash Neurological: Reports: Weakness - Underlies weakness Hematologic: Denies: Easy bruising, Easy bleeding Allergy: Denies: Uticaria Physical Exam Vital Signs/Narrative: Vital Signs Temp Pulse Resp BP Pulse Ox 12/28/20 08:42 97.9 F 109 H 18 146/96 H 100 Inital Vital Signs reviewed: Yes General: Well nourished, Well developed Head: Normocephalic ENT: Moist mucous membranes Neck: Supple Cardiovascular: Regular rate, Regular rhythm Respiratory: No distress, CTA bilaterally Abdomen: Soft, Tender - Mild lower abdominal tenderness to palpation., Hypoactive bowel sounds. Negative for: Guarding, Rebound tenderness Back: Nontender Extremities: Nontender Skin: Normal color Neurological: Alert, Oriented x3 Psychological: Normal affect Diagnostic/Tx/Re-eval Impressions Abdomen/Pelvis CTA 06/28/20 10:05 IMPRESSION: No evidence of vascular occlusion or hemodynamically significant stenosis. Multiple fluid collections are seen adjacent to the pancreas are consistent with pseudocysts, the largest is at the tail of the pancreas measures approximately 7.5 x 3.1 x 15 cm. Electronically Signed: Stephanie Hurtado, at 12:00 EST Tel , Service support , 06/28/20 10:05 CT ANGIO ABD&PEL W/O&W/DYE [CT] Stat Laboratory Results 06/28/20 06/28/20 09:12 09:12 WBC 9.6 RBC 4.18 L Hgb 11.7 L Hct 36.5 L MCV 87.3 MCH 28.0 MCHC 32.1 RDW Std Deviation 44.4 H RDW Coeff of Danitza 13.8 Plt Count 891 H* MPV 9.6 Immature Gran % (Auto) 0.500 Neut % (Auto) 54.9 Lymph % (Auto) 30.5 Yancey % (Auto) 10.7 H Eos % (Auto) 2.4 Baso % (Auto) 1.0 Absolute Neuts (auto) 5.3 Absolute Lymphs (auto) 2.93 Nucleated RBC % 0 Differential Comment SCANNED Diff Path Review May foll Platelet Estimate [employer] Sodium 137 Potassium 3.7 Chloride 104 Carbon Dioxide 28.0 Anion Gap 5 BUN 6 L Creatinine 0.88 Estim Creat Clear Calc 110.23 Est GFR (MDRD) Af Amer 118 Est GFR (MDRD) Non-Af 98 BUN/Creatinine Ratio 6.8 L Glucose 132 H Calcium 9.4 Total Bilirubin 0.30 Direct Bilirubin 0.11 AST 17 ALT 20 Alkaline Phosphatase 81 Total Protein 8.1 Albumin 3.1 L Globulin 5.0 H Lipase 358 - Medical Decision Making Patient was given morphine and Zofran for pain. Blood work is reviewed. He has developed thrombocytosis, new from his recent discharge. I spoke with hematology and after reviewing labs they feel this is likely post inflammatory reaction. They did recommend follow-up in a couple weeks for repeat blood work. CTA of the abdomen and pelvis was obtained because of this. No thromboembolism is noted however patient has developed pancreatic pseudocyst. This may be the source of his pain although his lipase is normal at this time. Patient will be given analgesics and referred to GI as well as back to his family doctor. He will also be given phone number for hematology follow-up. Patient is given return instructions. He will see his PCP for a virtual visit today. ED Disposition - Plan for ED Patient: Disposition: Home or Assisted Living Diagnosis: Pancreatic pseudocyst, Thrombocytosis Instructions: ED Abdominal Pain Unknown Cause ... Prescriptions: Oxycodone [Oxyir] 5 mg PO Q6H PRN PRN 5 Days #20 tablet PRN Reason: Pain Score 4-10 Transmission Status: [id number] Referrals: Sukumar Tay MD [Primary Care Provider] - Brook Gill NP, S[employer] ENGINEER-C [Nurse Practitioner] - Brandyn Pace MD [NON-STAFF] - Additional Instructions: As discussed, your bloodwork revealed an elevated platelet count. As speaking with hematology (blood specialists) it is felt this is likely secondary to the inflammation from your recent pancreatitis. The bloodwork for your pancreas is normal - you do not have acute pancreatitis at this time. Your CT scan revealed that you have developed some cysts around your pancreas from your recent pancreatitis. You will be referred to GI for follow-up.
[2020-06-28 09:25] LABS: Absolute Lymphocyte Count 2.93 X10^3/uL (0.83-4.51); Absolute Neutrophil Count 5.3 X10^3/uL (2.0-7.7); Eosinophil# 0.23 X10^3/uL; Eosinophils% 2.4 % (0-5); Hematocrit 36.5 % (40-54); Hemoglobin 11.7 g/dL (13.0-16.5); Lymphocyte # 2.93 X10^3/ul (4.0); Lymphocyte % 30.5 % (19-41); Mean Corp Hgb Conc 32.1 g/dL (32-36); Mean Corpuscular Volume 87.3 fL (80-94); Mean Platelet Vol. 9.6 fl (6.2-12.0); Monocyte# 1.03 X10^3/uL; Monocyte% 10.7 % (0-10); NRBC Flagged by Analyzer 0 % (0-5); Neutrophil # 5.26 X10^3/uL (2.7-7.7); Neutrophil % 54.9 % (47-70); POSITIVE COUNT YES; RBC Distribution Width CV 13.8 % (11.6-14.6); RBC Distribution Width SD 44.4 fl (35.1-43.9); Red Blood Count 4.18 M/mm3 (4.6-6.2); White Blood Count 9.6 K/mm3 (4.4-11.0)
[2020-06-28 09:29] LABS: Differential Indicated SCAN CRITERIA MET; Platelet Count 891 K/mm3 (150-450)
[2020-06-28] MEDS: 0.9% Normal Saline 1,000 ML 1000 ML IV (09:38)
[2020-06-28] MEDS: Ondansetron 4 MG/2 ML Vial IV (09:39)
[2020-06-28] MEDS: Morphine 4 MG/ML Syringe IV (09:39)
[2020-06-28 09:43] LABS: AST(SGOT) 17 U/L (15-37); Alanine Aminotransfer ALT/SGPT 20 U/L (16-61); Albumin, Serum 3.1 g/dL (3.2-5.0); Alkaline Phosphatase 81 U/L (45-117); Anion Gap 5 (5-15); BUN 6 mg/dL (7-18); BUN/Creat Ratio 6.8 RATIO (10-20); Bilirubin, Direct 0.11 mg/dL (0.00-0.30); Calcium,Total 9.4 mg/dL (8.5-10.1); Chloride 104 mmol/L (98-107); Creatinine, Serum 0.88 mg/dL (0.70-1.30); EST Glomerular Filtration Rate 98 mL/min (>60); Est Glom Filt Rate - Afr Amer 118 mL/min (>60); Estimated Creatinine Clearance 110.23 ml/min; Glucose 132 mg/dL (74-106); Lipase 358 U/L (73-393); Potassium 3.7 mmol/L (3.5-5.1); Protein, Total 8.1 g/dL (6.4-8.2); Sodium Level 137 mmol/L (136-145)
[2020-06-28 09:52] LABS: Differential Comment SCANNED; Platelet Estimate MKD INC (ADEQ)
--- NOTE | 2020-06-28 10:05 | CT_ITS ---
STUDY: CTA OF THE ABDOMINAL AORTA REASON FOR EXAM: Male, 49 years old. RADIATION DOSAGE (If Supplied By Facility): CTDIvol = ( 24.29 ) mGy, DLP = ( 652.63 ) mGycm TECHNIQUE: Axial CT angiography multi-detector data acquisition was obtained from the to the following intravenous administration of ml of 100mL Isovue-370 contrast. Axial images and MIP images were reconstructed from the axial data set. Post-processing of the angiographic images was performed, with multiplanar reformation and 3D reconstruction. Individualized dose optimization techniques were used for this CT. TECHNICAL QUALITY: Good COMPARISON: None. Descriptors of Narrowing: None (0%) Mild (< 50%) Moderate (50-70%) Severe (70-90%) Subtotal/Total Occlusion (90-100%) Non-Evaluable (technically non-diagnostic FINDINGS: The visualized lung bases are unremarkable. The visualized portions of the heart are within normal limits. There is decreased attenuation of the liver consistent with steatosis. Mild hepatomegaly. Normal gallbladder and extrahepatic biliary system. Normal spleen. Multiple fluid collections are seen adjacent to the pancreas are consistent with pseudocysts, the largest is at the tail of the pancreas measures approximately 7.5 x 3.1 x 15 cm. Normal bilateral adrenal glands. Normal right kidney. Normal left kidney. There is evidence of a soft tissue density and fluid in the left anterior pararenal space most likely secondary to the acute pancreatitis. Normal visualized stomach. Normal small intestine. Normal colon. The appendix is visualized and appears normal. Normal abdominal aorta. Normal inferior vena cava. Normal retroperitoneum. Normal urinary bladder. A small amount of fluid is seen in the pelvis. Normal abdominal wall. Status post laminectomy and mid clavicular screw fixation at the L3-L4, L4-L5 and L5-S1 levels. Degenerative spondylosis is also seen. Abdominal aorta: No demonstrated narrowing. Celiac and superior mesenteric arteries: No demonstrated narrowing. Inferior mesenteric artery: No demonstrated narrowing. Right renal artery(arteries): No demonstrated narrowing. Left renal artery(arteries): No demonstrated narrowing. Right common iliac artery: No demonstrated narrowing. Right external iliac artery: No demonstrated narrowing. Right internal iliac artery: No demonstrated narrowing. Left common iliac artery: No demonstrated narrowing. Left external iliac artery: No demonstrated narrowing. Left internal iliac artery: No demonstrated narrowing. The visualized lung bases are unremarkable. The visualized portions of the heart are within normal limits. Normal liver. Normal gallbladder and extrahepatic biliary system. Normal spleen. Normal pancreas. Normal bilateral adrenal glands. Normal right kidney. Normal left kidney. Normal visualized stomach. Normal small intestine. Normal colon. The appendix is visualized and appears normal. Normal abdominal aorta. Normal inferior vena cava. Normal retroperitoneum. Normal urinary bladder. Normal abdominal wall. Normal osseous structures. CT/CT ANGIO ABD&PEL W/O&W/DYE IMPRESSION: No evidence of vascular occlusion or hemodynamically significant stenosis. Multiple fluid collections are seen adjacent to the pancreas are consistent with pseudocysts, the largest is at the tail of the pancreas measures approximately 7.5 x 3.1 x 15 cm. Electronically Signed: Stephanie Hurtado, at 12:00 EST Tel , Service support ,
[2020-06-28 12:18] VITALS: BP 150/105; PULSE 80; RESP 16; O2SAT 100
[2020-06-28 12:26] VITALS: BP 150/97; PULSE 83; RESP 16; O2SAT 100
[2020-06-29 11:35] LABS: Pathologist Review Reviewed
== END 2020-06-28 12:27 | disposition home or self-care (01) ==
PROVIDERS: Emergency Provider Emergency Medicine; PCP Family Medicine
DX: K86.3 Pseudocyst of pancreas (principal); D47.3 Essential (hemorrhagic) thrombocythemia; I11.0 Hypertensive heart disease with heart failure; I50.22 Chronic systolic (congestive) heart failure; Z87.19 Personal history of other diseases of the digestive system; Z87.891 Personal history of nicotine dependence
CPT/HCPCS: 74174; 80048; 80076; 83690; 85025; 96374; 96375; 99283; J7030; Q9967; A4216; J2405

== ENCOUNTER → 2020-09-22 07:35 | Outpatient (CLI) | payer BC, SELFPAY ==
[2020-08-11 08:18] VITALS: BMI 27.1
[2020-09-21 10:26] VITALS: BMI 28.1
--- NOTE | 2020-09-22 07:40 | CT_ITS ---
STUDY: CT ABDOMEN WITH CONTRAST REASON FOR EXAM: Male, 49 years old. PANCREATITIS. Follow-up examination. RADIATION DOSAGE (If Supplied By Facility): CTDIvol = ( 17.01 ) mGy, DLP = ( 560.16 ) mGycm TECHNIQUE: Transaxial images were obtained post I.V. administration of IV 100mL Isovue-300, and oral contrast. Sagittal and coronal images were reconstructed. Individualized dose optimization techniques were used for this CT. COMPARISON: Comparison is made with prior study dated 06/28/2020. FINDINGS: The visualized lung bases are unremarkable. The visualized portions of the heart are within normal limits. There is decreased attenuation of the liver consistent with steatosis. Normal gallbladder and extrahepatic biliary system. Normal spleen. There now is evidence of a 5.5 cm x 6.7 cm x 8.9 cm cyst in the tail of the pancreas. Adjacent to this, there is a 2.8 cm x 2.2 cm septated cyst in the cephalic portion of the tail of pancreas. The pancreas is atrophic. Minimal residual increased markings in the surrounding peritoneal fat in the region of the tail of the pancreas. Normal bilateral adrenal glands. Normal right kidney. Normal left kidney. Normal visualized stomach. Normal small intestine. Normal colon. The appendix is visualized and appears normal. There is scattered atherosclerotic calcification of the abdominal aorta, without a demonstrated aneurysm. Normal inferior vena cava. Normal retroperitoneum. Normal abdominal wall. Straightening of the normal lumbar lordosis. The patient is status post laminectomy and fusion at the L3-L4 and L4-L5 levels with screw and david fixation device as well as transverse body bone grafting. CT/Abdomen WITH IV Contrast IMPRESSION: Atrophy of the pancreas. Dominant pseudocyst in the inferior aspect of the tail the pancreas measuring 5.5 cm x 6.7 cm x 8.9 cm. Fatty infiltration of the liver. Electronically Signed: Elias Birch MD at 8:50 EDT , Service support ,
== END ==
PROVIDERS: PCP Family Medicine; Referring Provider Internal Medicine Gastroenterology; Visit Provider Internal Medicine Gastroenterology
DX: K85.90 Acute pancreatitis without necrosis or infection, unspecified (principal)
CPT/HCPCS: 74160; Q9967

== ENCOUNTER → 2020-09-28 07:39 | Outpatient (CLI) | payer BC, SELFPAY ==
[2020-09-21 10:26] VITALS: BMI 28.1
--- NOTE | 2020-09-28 07:41 | ECHOD_ITS ---
Reason For Study: CARDIOMYOPATHY Procedure This was a 2D Doppler, Color Flow transthoracic echocardiogram. Exam performed in department. Left Ventricle Normal LV size. Apical false tendon noted. Left ventricular systolic function is normal. The estimated ejection fraction is 55 %. Stage 1 diastolic dysfunction. No regional wall motion abnormalities noted. Right Ventricle Normal RV size. Normal systolic function. Atria Normal left atrium. Normal right atrium. Bubble contrast study negative for right to left interatrial shunt. Mitral Valve Normal mitral valve. Mild (1+) eccentric mitral valve insufficiency. Tricuspid Valve Normal tricuspid valve. Mild tricuspid valve insufficiency. Aortic Valve Trisinus/trileaflet aortic valve. Normal aortic valve. Pulmonic Valve Normal pulmonic valve. Mild (1+) pulmonic valve insufficiency. Great Vessels Normal aortic root. The pulmonary artery is normal size. Normal inferior vena cava. Pericardium/Pleural No pericardial effusion. Medication 22 gauge I.V. with prn adaptor inserted into right arm. Performed a rapid injection of agitated mix of 9 cc saline and 1cc air to assess for atrial septal defect. MMode/2D Measurements & Calculations LVIDd: 5.2 cm IVSd: 1.1 cm Ao root diam: 3.0 cm LVIDs: 3.8 cm LVPWd: 1.1 cm RVDd: 2.9 cm FS: 27.3 % LAV(MOD-bp): 59.3 ml LA A4 area: 19.8 cm2 LA dimension(2D): 4.1 cm LAV(MOD-bp) Indexed: 28.0 ml/m2 LAV(MOD-sp2): 56.2 ml LAV(MOD-sp4): 56.5 ml RA A4 area: 14.8 cm2 Time Measurements MV dec time: 0.22 sec Doppler Measurements & Calculations MV E max thiago: 65.0 cm/sec Lat Peak E' Thiago: 7.6 cm/sec Med Peak E' Thiago: 6.7 cm/sec MV A max thiago: 93.0 cm/sec E/E' lat: 8.6 E/E' med: 9.7 MV E/A: 0.70 Ao V2 max: 140.5 cm/sec LV V1 max: 117.9 cm/sec PA V2 max: 99.5 cm/sec Ao max P.9 mmHg LV V1 max P.6 mmHg TR max thiago: 197.9 cm/sec TR max P.7 mmHg ECHO/Echo Complete Interpretation Summary Normal LV size. Left ventricular systolic function is normal. The estimated ejection fraction is 55 %. Apical false tendon noted. Bubble contrast study negative for right to left interatrial shunt. Stage 1 diastolic dysfunction. Compared to previous study, the left ventricular systolic function has improved .. Ordering Physician: Padmini Foss Referring Physician: Sukumar Tay Performed By: Sunita Alegria, KO, RVT
== END ==
PROVIDERS: PCP Family Medicine; Referring Provider Physician Assistant Medical; Visit Provider Physician Assistant Medical
DX: I42.0 Dilated cardiomyopathy (principal); I11.0 Hypertensive heart disease with heart failure; I50.22 Chronic systolic (congestive) heart failure; E78.5 Hyperlipidemia, unspecified
CPT/HCPCS: 93306; A4216

== ENCOUNTER → 2021-01-19 07:16 | Outpatient (CLI) | payer BC, SELFPAY ==
[2020-09-21 10:26] VITALS: BMI 28.1
[2021-01-19 07:54] LABS: Absolute Lymphocyte Count 2.98 X10^3/uL (0.83-4.51); Absolute Neutrophil Count 2.9 X10^3/uL (2.0-7.7); Basophil# 0.07 X10^3/uL; Eosinophil# 0.27 X10^3/uL; Eosinophils% 3.9 % (0-5); Hematocrit 42.5 % (40-54); Lymphocyte # 2.98 X10^3/ul (0.83-4.51); Lymphocyte % 42.7 % (19-41); Mean Corp Hgb Conc 32.9 g/dL (32-36); Mean Corpuscular Hgb 27.9 pg (27.0-32.0); Mean Corpuscular Volume 84.8 fL (80-94); Mean Platelet Vol. 9.8 fl (6.2-12.0); Monocyte# 0.72 X10^3/uL; Monocyte% 10.3 % (0-10); NRBC Flagged by Analyzer 0 % (0-5); Neutrophil # 2.92 X10^3/uL (2.7-7.7); Neutrophil % 41.8 % (47-70); Platelet Count 320 K/mm3 (150-450); RBC Distribution Width CV 13.7 % (11.6-14.6); RBC Distribution Width SD 42.6 fl (35.1-43.9); Red Blood Count 5.01 M/mm3 (4.6-6.2)
[2021-01-19 08:21] LABS: Iron Binding Capacity,Total 374 ug/dL (250-450)
[2021-01-19 08:26] LABS: AST(SGOT) 18 U/L (15-37); Alanine Aminotransfer ALT/SGPT 43 U/L (16-61); Albumin, Serum 4.1 g/dL (3.2-5.0); Alkaline Phosphatase 96 U/L (45-117); Anion Gap 6 (5-15); BUN 20 mg/dL (7-18); BUN/Creat Ratio 18.2 RATIO (10-20); Calcium,Total 9.2 mg/dL (8.5-10.1); Chloride 102 mmol/L (98-107); EST Glomerular Filtration Rate 75 mL/min (>60); Est Glom Filt Rate - Afr Amer 91 mL/min (>60); Ferritin 285 ng/mL (26-388); Globulin 4.2 g/dL (2.2-4.2); Glucose 105 mg/dL (74-106); Iron 104 ug/dL (65-175); LDH 163 U/L (87-241); Potassium 3.7 mmol/L (3.5-5.1); Protein, Total 8.3 g/dL (6.4-8.2); Sodium Level 134 mmol/L (136-145)
[2021-01-19 09:42] LABS: Vitamin B12 716 pg/mL (211-911)
== END ==
PROVIDERS: PCP Family Medicine; Referring Provider Internal Medicine Medical Oncology; Visit Provider Internal Medicine Medical Oncology
DX: R79.89 Other specified abnormal findings of blood chemistry (principal); E61.1 Iron deficiency
CPT/HCPCS: 36415; 80053; 82607; 82728; 82746; 83540; 83550; 83615; 85025

== ENCOUNTER 2021-06-28 22:05 | Inpatient (IN) | payer BC, SELFPAY ==
[2021-06-28 22:06] VITALS: BP 123/86; PULSE 89; RESP 18; TEMP 36.1; O2SAT 100; BMI 21.5
[2021-06-29] VITALS (14 sets, daily range): BP systolic 105–145; BP diastolic 67–104; PULSE 68–841; RESP 11–19; TEMP 36.2–36.8; O2SAT 98–100; BMI 23.5
--- NOTE | 2021-06-29 00:35 | EKG12_ITS ---
Test Reason : DYSRHYTHMIA Blood Pressure : / mmHG Vent. Rate : 072 BPM Atrial Rate : 072 BPM P-R Int : 140 ms QRS Dur : 100 ms QT Int : 418 ms P-R-T Axes : 058 035 037 degrees QTc Int : 457 ms Normal sinus rhythm Voltage criteria for left ventricular hypertrophy Abnormal ECG Confirmed by MARITZA HART, ALEAH ([id number]), scientific publications editor BROCK MILLER ([id number]) on 07/05/2021 10:00:48 AM Referred By: BB Confirmed By:ALEAH SALAS MD
--- NOTE | 2021-06-29 00:43 | EX.ED.DYSGE1 ---
HPI History of Present Illness Chief Complaint: General Illness Informant: patient and spouse/S.O. Narrative Narrative: Patient was admitted for alcoholic pancreatitis about 1 month ago and ever since then he has been gradually feeling worse, he has been malaise, feels dehydrated, polyuria, polydipsia, had a blood sugar checked today during some regular blood work that was around 700 and was referred to the ER. No known history of diabetes prior to this. He states that since he was discharged from the hospital, he has had no alcohol. He denies any dyspnea, nausea, vomiting, headaches, focal neurologic symptoms. [facility] Medical History Acute pancreatitis CANDY (acute kidney injury) Alcohol abuse Cardiomyopathy, dilated, nonischemic Chronic systolic CHF (congestive heart failure), NYHA class 2 Essential (primary) hypertension Tobacco abuse Home Medications folic acid 1 mg PO DAILY 06/17/20 [History Last Taken 06/28/21] multivitamin 1 tab PO DAILY 06/17/20 [History Last Taken 06/28/21] carvedilol 25 mg tablet 25 mg PO BID #180 tab 09/09/20 [Rx Last Taken 06/28/21] ascorbate calcium (vitamin C) 500 mg tablet 500 mg PO DAILY 03/24/21 [History Last Taken 06/28/21] cholecalciferol (vitamin D3) 25 mcg (1,000 unit) capsule 25 mcg PO DAILY 03/24/21 [History Last Taken 06/28/21] lisinopril 10 mg tablet 10 mg PO DAILY #90 tab 03/24/21 [Rx Last Taken 06/28/21] polysaccharide iron complex 150 mg PO DAILYCM 06/29/21 [History Last Taken 06/28/21] Allergy/AdvReac Type Severity Reaction Status Date / Time No Known Allergies Allergy Verified 06/28/21 22:09 Family History (Updated 06/29/21 @ 05:[address] Monae Ma DO) Father , age 82 Heart disease Alzheimer's dementia Diabetes Mother congestive heart failure Cardiac aneurysm Diabetes Surgical History History of right and left heart catheterization (09/05/17) History of tonsillectomy Previous back surgery Social History (Updated 06/29/21 @ 05:[address] Monae Ma DO) Smoking Status: Current every day smoker tobacco type: cigars alcohol intake: former details: Quit 1 month ago after hospitalization for acute alcoholic pancreatitis substance use type: does not use ROS ROS ED Constitutional Constitutional ED: Reports fatigue and malaise; Denies chills or fever(s) Eyes Eyes: Denies change in vision or diplopia ENT ENT ED: Denies rhinorrhea or sore throat Cardiovascular Cardiovascular: Denies chest pain or palpitations Respiratory/Chest Respiratory/Chest: Denies cough or dyspnea Gastrointestinal Gastrointestinal: Denies abdominal pain, diarrhea, nausea or vomiting Genitourinary Genitourinary ED: Denies dysuria or hematuria Musculoskeletal Musculoskeletal: Denies back pain or neck pain Integumentary Denies abscess or rash Neurologic Neurologic: Denies headache(s), paresthesias or weakness Psychiatric Psychiatric: Denies anxiety or suicidal thoughts Endocrine Endocrinology: Reports as per HPI, polydipsia and polyuria EXAM Physical Exam Const Vital Signs: 06/28/21 22:06 06/28/21 22:53 06/29/21 00:46 Temperature 96.9 F L Temperature Source Temporal Pulse Rate 89 72 Respiratory Rate 18 16 Respiratory Pattern Normal Blood Pressure 123/86 H 105/75 Blood Pressure Mean 98 85 Pulse Ox 100 100 Oxygen Delivery Method Room Air Room Air 06/29/21 02:15 Temperature Temperature Source Pulse Rate 73 Respiratory Rate 19 H Respiratory Pattern Blood Pressure 128/84 H Blood Pressure Mean 98 Pulse Ox 100 Oxygen Delivery Method Room Air Positive well nourished and well developed General Appearance ED: well developed and NAD HEENT Reports dry mucous membranes normocephalic and atraumatic Mouth ED: Yes dry mucous membranes Mouth: dry mucous membranes Eyes PERRL and EOMs intact bilaterally Neck full ROM and supple Resp normal respiratory effort and clear to auscultation bilaterally Cardio regular rate, regular rhythm and no murmurs GI non-tender and non-distended Auscultation: normoactive bowel sounds Palpation: soft Back/Spine no CVA tenderness General Back: other FROM Extremity normal to inspection General Extremety ED: Negative for edema, pulses abnormal or tenderness General Extremity: Negative for edema or pulses abnormal Neuro oriented x3, CN's II-XII intact bilaterally and no sensory deficits noted Sensorium / Orientation: awake and alert Motor Exam: strength 5/5 throughout Skin no rashes or lesions noted and no wounds MDM MDM MDM Narrative Medical decision making narrative: Patient is doing well and his labs are consistent with DKA. We will start him on insulin drip since his potassium is not low, he was given IV fluids, plan is for admission for further treatment evaluation and education. Lab Data Attestation: I reviewed the patient's lab results. Labs: Laboratory Results - last 24 hr 06/28/21 06/28/21 06/28/21 22:25 23:10 23:10 WBC 5.5 RBC 5.14 Hgb 14.6 Hct 43.2 MCV 84.0 MCH 28.4 MCHC 33.8 RDW Std Deviation 36.1 RDW Coeff of [place]it[place] 11.9 Plt Count 212 MPV 13.0 H Immature Gran % (Auto) 0.200 Neut % (Auto) 56.7 Lymph % (Auto) 32.7 [place] % (Auto) 7.3 Eos % (Auto) 2.4 Baso % (Auto) 0.7 Absolute Neuts (auto) 3.1 Absolute Lymphs (auto) 1.79 Nucleated RBC % 0 Sodium 122 L Potassium 4.9 Chloride 81 L Carbon Dioxide 25.0 Anion Gap 16 H BUN 31 H Creatinine 1.54 H Estim Creat Clear Calc 57.89 Est GFR (MDRD) Af Amer 61 Est GFR (MDRD) Non-Af 51 L BUN/Creatinine Ratio 20.1 H Glucose 829 H* Calcium 9.2 Total Bilirubin 0.40 AST 11 L ALT 26 Alkaline Phosphatase 152 H Total Protein 7.6 Albumin 3.6 Globulin 4.0 Albumin/Globulin Ratio 0.9 Urine Color Yellow Urine Clarity Clear Urine pH 6.0 Ur Specific [place] 1.010 Urine Protein Negative Urine Glucose (UA) 1000 H Urine Ketones 50 H Urine Occult Blood Negative Urine Nitrite Negative Urine Bilirubin Negative Urine Urobilinogen Normal Ur Leukocyte Esterase Negative Urine RBC 0 SEEN Urine WBC 0 SEEN Ur Squamous Epith Cells 0 SEEN Urine Bacteria 0 SEEN Urine Mucus 0 SEEN Acetone Level POC Glucose 06/28/21 06/29/21 23:10 00:48 WBC RBC Hgb Hct MCV MCH MCHC RDW Std Deviation RDW Coeff of [place]it[place] Plt Count MPV Immature Gran % (Auto) Neut % (Auto) Lymph % (Auto) [place] % (Auto) Eos % (Auto) Baso % (Auto) Absolute Neuts (auto) Absolute Lymphs (auto) Nucleated RBC % Sodium Potassium Chloride Carbon Dioxide Anion Gap BUN Creatinine Estim Creat Clear Calc Est GFR (MDRD) Af Amer Est GFR (MDRD) Non-Af BUN/Creatinine Ratio Glucose Calcium Total Bilirubin AST ALT Alkaline Phosphatase Total Protein Albumin Globulin Albumin/Globulin Ratio Urine Color Urine Clarity Urine pH Ur Specific [place] Urine Protein Urine Glucose (UA) Urine Ketones Urine Occult Blood Urine Nitrite Urine Bilirubin Urine Urobilinogen Ur Leukocyte Esterase Urine RBC Urine WBC Ur Squamous Epith Cells Urine Bacteria Urine Mucus Acetone Level MODERATE H POC Glucose > 500 H* ABG Data ABG results: ABG 06/29/21 01:56 Specimen Type JAIRON VBG pH 7.34 VBG pO2 34 VBG HCO3 24 VBG Total CO2 25 VBG O2 Sat (Calc) 60 VBG Base Excess -2 L POC Mix VBG pCO2 Pt Tmp 45.0 O2 Delivery Device Room Air EKG Initial EKG: Attestation: I personally reviewed and interpreted this EKG as follows: Interpretation: Sinus Rhythm, No Acute Injury Pattern and S-T Elevation (early repol) Critical Care Time Critical Care Time: Yes Critical care time (excluding procedures): 30-74 minutes (32 min), Including time spent:, Discussing w/Patient &/or Family/Cheese Specialist, Discussing w/Consultants, Arranging Admission or Transfer and Performing Direct Patient Care at Bedside Discharge Plan Dx/Rx/DC Orders Clinical Impression: DKA (diabetic ketoacidosis), Diabetes mellitus, new onset, Dehydration Disposition Disposition: [facility] Discharge Date/Time: 06/29/21 04:25
[2021-06-29 00:47] LABS: Absolute Lymphocyte Count 1.79 X10^3/uL (0.83-4.51); Absolute Neutrophil Count 3.1 X10^3/uL (2.0-7.7); Basophil# 0.04 X10^3/uL; Basophil% 0.7 % (0-1); Eosinophil# 0.13 X10^3/uL; Eosinophils% 2.4 % (0-5); Hematocrit 43.2 % (40-54); Hemoglobin 14.6 g/dL (13.0-16.5); Lymphocyte # 1.79 X10^3/ul (0.83-4.51); Lymphocyte % 32.7 % (19-41); Mean Corp Hgb Conc 33.8 g/dL (32-36); Mean Corpuscular Hgb 28.4 pg (27.0-32.0); Monocyte% 7.3 % (0-10); NRBC Flagged by Analyzer 0 % (0-5); Neutrophil % 56.7 % (47-70); Platelet Count 212 K/mm3 (150-450); RBC Distribution Width CV 11.9 % (11.6-14.6); RBC Distribution Width SD 36.1 fl (35.1-43.9); Red Blood Count 5.14 M/mm3 (4.6-6.2); White Blood Count 5.5 K/mm3 (4.4-11.0)
[2021-06-29] MEDS: 0.9% Normal Saline 1,000 ML 999 ML IV ×3 (00:51→05:04)
[2021-06-29 00:55] LABS: Bedside Glucose > 500 mg/dL (70-110)
[2021-06-29 01:06] LABS: Bacteria 0 SEEN /hpf (None Seen); Mucous, Urine 0 SEEN /hpf (<or=2+); Red Blood Cells-Urine 0 SEEN /hpf (0-5); Squamous Epithelial Cells - UA 0 SEEN /hpf (0-5); White Blood Cells 0 SEEN /hpf (0-5)
[2021-06-29 01:08] LABS: Color, Urine Yellow (Yellow); Glucose, Dipstick 1000 mg/dl (Normal); Ketone-Dipstick 50 mg/dl (Negative); Leukocyte Esterase-Dipstick Negative /ul (Negative); Nitrite-Dipstick Negative (Negative); Occult Blood-Urine Negative /ul (Negative); Protein-Dipstick Negative (Negative); Urine Bilirubin Dipstick Negative (Negative); Urine Clarity Clear (Clear); Urine Urobilinogen Normal (Normal)
[2021-06-29 01:12] LABS: ALB/GLOB Ratio 0.9 RATIO (0.9-2.4); AST(SGOT) 11 U/L (15-37); Alanine Aminotransfer ALT/SGPT 26 U/L (16-61); Albumin, Serum 3.6 g/dL (3.2-5.0); Alkaline Phosphatase 152 U/L (45-117); Anion Gap 16 (5-15); BUN 31 mg/dL (7-18); BUN/Creat Ratio 20.1 RATIO (10-20); Calcium,Total 9.2 mg/dL (8.5-10.1); Chloride 81 mmol/L (98-107); Creatinine, Serum 1.54 mg/dL (0.70-1.30); EST Glomerular Filtration Rate 51 mL/min (>60); Est Glom Filt Rate - Afr Amer 61 mL/min (>60); Estimated Creatinine Clearance 57.89 ml/min; Glucose 829 mg/dL (74-106); Potassium 4.9 mmol/L (3.5-5.1); Protein, Total 7.6 g/dL (6.4-8.2); Sodium Level 122 mmol/L (136-145)
[2021-06-29 02:00] LABS: Blood Gas Specimen Type VEN; O2 Delivery Device Room Air; VBG BASE EXCESS -2 mmol/L (-1.0-3.5); VBG Bicarbonate 24 mmol/L (22-26); VBG PO2 34 mmHg (25-40); VBG SO2 60 % (50-70); VBG TCO2 25 mmol/L (23-33); VBG pH 7.34 (7.32-7.42)
[2021-06-29 03:25] LABS: Osmolality, Serum 319 mOsm/KG (275-295)
[2021-06-29 03:55] LABS: Bedside Glucose 443 mg/dL (70-110)
--- NOTE | 2021-06-29 04:07 | ED.RN ---
called and updated on admission and patient condition at this time
[2021-06-29 05:15] LABS: Absolute Lymphocyte Count 3.06 X10^3/uL (0.83-4.51); Absolute Neutrophil Count 2.9 X10^3/uL (2.0-7.7); Basophil# 0.06 X10^3/uL; Basophil% 0.9 % (0-1); Eosinophil# 0.18 X10^3/uL; Eosinophils% 2.7 % (0-5); Hematocrit 38.3 % (40-54); Hemoglobin 13.2 g/dL (13.0-16.5); Lymphocyte # 3.06 X10^3/ul (0.83-4.51); Lymphocyte % 45.9 % (19-41); Mean Corp Hgb Conc 34.5 g/dL (32-36); Mean Corpuscular Hgb 28.4 pg (27.0-32.0); Mean Corpuscular Volume 82.5 fL (80-94); Mean Platelet Vol. 12.1 fl (6.2-12.0); Monocyte# 0.46 X10^3/uL; Monocyte% 6.9 % (0-10); NRBC Flagged by Analyzer 0 % (0-5); Neutrophil # 2.89 X10^3/uL (2.7-7.7); Neutrophil % 43.4 % (47-70); Platelet Count 203 K/mm3 (150-450); RBC Distribution Width CV 11.9 % (11.6-14.6); RBC Distribution Width SD 36.2 fl (35.1-43.9); Red Blood Count 4.64 M/mm3 (4.6-6.2); White Blood Count 6.7 K/mm3 (4.4-11.0)
--- NOTE | 2021-06-29 05:23 | HP.PCM.HOS_ITS ---
HPI - General General Date of Admission: 06/29/21 Date of Service: 06/29/21 Chief Complaint: General malaise HPI Narrative SUNG ACEVES, is a 50 M who presented to the emergency department was [facility] on 06/28/2021 with a chief complaint of general malaise. The patient was admitted for alcoholic pancreatitis approximately 1 month ago at [facility] and reports ever since then he has been gradually feeling worse with malaise, po lydipsia, polyuria, blurred vision, and generalized weakness. He had some regular lab work that was performed today around 7 AM and had an elevated blood glucose on that lab work and therefore was referred to the emergency department. He has no known history of diabetes prior to this. He states that since he was discharged from the hospital approximately 1 month ago he has had no alcohol. He complains of mild nausea but no vomiting, chest pain, shortness of breath, diarrhea, or constipation. His vital signs in the emergency department were overall unremarkable. His CBC is overall unimpressive. His BMP on admission showed a sodium of 122 with a chloride of 81 but when corrected for his blood sugar his sodium corrected to 133. His anion gap was 16 and his bicarb is 25. His BUN was 31 with a elevated creatinine 1.54 with a baseline creatinine that appears to be 0.8-1.1. His blood glucose level on admission was 829. His LFTs were within normal limits and his UA had significant glucose urea and ketones. He had moderate acetone level in his blood. Emergency department he was placed on an insulin drip and given IV fluids. Request for ICU admission was made. He does not have a known diagnosis of diabetes at baseline. [facility] Medical History Acute pancreatitis CANDY (acute kidney injury) Alcohol abuse Cardiomyopathy, dilated, nonischemic Chronic systolic CHF (congestive heart failure), NYHA class 2 Essential (primary) hypertension Tobacco abuse Home Medications folic acid 1 mg PO DAILY 06/17/20 [History Last Taken 06/28/21] multivitamin 1 tab PO DAILY 06/17/20 [History Last Taken 06/28/21] carvedilol 25 mg tablet 25 mg PO BID #180 tab 09/09/20 [Rx Last Taken 06/28/21] ascorbate calcium (vitamin C) 500 mg tablet 500 mg PO DAILY 03/24/21 [History Last Taken 06/28/21] cholecalciferol (vitamin D3) 25 mcg (1,000 unit) capsule 25 mcg PO DAILY 03/24/21 [History Last Taken 06/28/21] lisinopril 10 mg tablet 10 mg PO DAILY #90 tab 03/24/21 [Rx Last Taken 06/28/21] polysaccharide iron complex 150 mg PO DAILYCM 06/29/21 [History Last Taken 06/28/21] Allergy/AdvReac Type Severity Reaction Status Date / Time No Known Allergies Allergy Verified 06/28/21 22:09 Family History (Updated 06/29/21 @ 05:[address] Monae Ma DO) Father , age 82 Heart disease Alzheimer's dementia Diabetes Mother congestive heart failure Cardiac aneurysm Diabetes Surgical History History of right and left heart catheterization (09/05/17) History of tonsillectomy Previous back surgery Social History (Updated 06/29/21 @ 05:[address] Monae Ma DO) Smoking Status: Current every day smoker tobacco type: cigars alcohol intake: former details: Quit 1 month ago after hospitalization for acute alcoholic pancreatitis substance use type: does not use ROS Constitutional Constitutional: Reports anorexia, change in weight and weakness; Denies chills, fatigue, fever(s), malaise, night sweats or other Eyes Eyes: Reports blurry vision and change in vision; Denies change in eye color, discharge from eye(s), double vision, erythema, eye pain, loss of vision or other ENT HEENT: Denies abnormal hearing, dysphagia, ear pain, epistaxis, headache(s), hearing loss, nasal congestion, nasal discharge, post nasal drip, sinus pressure, sore throat or other Cardiovascular Cardiovascular: Denies chest pain, claudication, dyspnea on exertion, edema, lightheadedness, orthopnea, palpitations, paroxysmal nocturnal dyspnea, rapid heart rate, syncope or other Respiratory/Chest Respiratory/Chest: Denies cough, dyspnea, excessive phlegm production, hemoptysis, productive cough, shortness of breath at rest, shortness of breath with exertion, wheezing or other Gastrointestinal Gastrointestinal: Reports nausea; Denies abdominal pain, coffee ground emesis, constipation, diarrhea, dyspepsia, hematemesis, hematochezia, loose stools, melena, vomiting or other Genitourinary Genitourinary: Reports urinary frequency Musculoskeletal Musculoskeletal: Denies arthralgias, back pain, joint pain, joint stiffness, joint swelling, myalgias, neck pain or other Neurologic Neurologic: Denies abnormal gait, abnormal speech, confusion, disequilibrium, dizziness, focal weakness, headache(s), numbness, paresthesias, seizure-like activity, seizures, syncope, tingling, tremor(s) or other Psychiatric Psychiatric: Denies anxiety, depression, homicidal ideation, suicidal ideation or other Endocrine Endocrinology: Reports polydipsia and polyuria; Denies change in body appearance, cold intolerance, excessive sweating, heat intolerance or other Hematologic/Lymphatic Hematologic/Lymphatic: Denies anemia, easy bleeding, easy bruising, lymphadenopathy or other Vital Signs Vital Signs Vital Signs: 06/28/21 22:06 06/28/21 22:53 06/29/21 00:46 Temperature 96.9 F L Temperature Source Temporal Pulse Rate 89 72 Respiratory Rate 18 16 Respiratory Pattern Normal Blood Pressure 123/86 H 105/75 Blood Pressure Mean 98 85 Blood Pressure Source Blood Pressure Position Blood Pressure Location Pulse Ox 100 100 Oxygen Delivery Method Room Air Room Air 06/29/21 02:15 06/29/21 03:52 06/29/21 04:36 Temperature 98.2 F 97.1 F L Temperature Source Oral Temporal Pulse Rate 73 82 74 Respiratory Rate 19 H 11 L 14 Respiratory Pattern Blood Pressure 128/84 H 121/70 H 127/87 H Blood Pressure Mean 98 87 100 Blood Pressure Source Monitor Blood Pressure Position Semi-Fowlers Blood Pressure Location Right Arm Pulse Ox 100 100 98 Oxygen Delivery Method Room Air Room Air Room Air Weight Weight: 78.6 kg Body Mass Index (BMI) 23.5 Physical Exam Const alert, oriented x3, no apparent distress, average body habitus, healthy appearing and well nourished Constitutional Narrative: Middle-aged -[place] male sitting up in bed, appears comfortable, nontoxic General Appearance: cooperative HEENT normocephalic, head/scalp atraumatic and hearing grossly normal bilaterally HEENT Narrative: Dry mucous membranes, dentition is fair, Mallampati is 2 Eyes PERRL, EOMs intact bilaterally and conjunctivae normal Eyes Narrative: No scleral icterus Neck no lymphadenopathy, supple, no JVD and no carotid bruits Neck Narrative: Trachea midline, no thyroid enlargement Resp normal respiratory effort, no retractions, no use of accessory muscles and clear to auscultation bilaterally Auscultation: Negative for crackles, rales, rhonchi or wheezes Cardio regular rate, regular rhythm, S1 normal heart sound, S2 normal heart sound, no murmurs, no rub, no gallops, no clicks and no JVD GI normal to inspection, nondistended, normoactive bowel sounds, soft to palpation, non-tender and non-distended Extremity no clubbing, cyanosis or edema Peripheral Pulses: Yes pulses 2+ throughout Skin no rashes or lesions noted, no wounds, skin turgor normal, no jaundice, no petechiae and no mottling Neuro oriented x3, CN's II-XII intact bilaterally, moves all extremities and no focal motor deficits Sensorium / Orientation: awake and alert Speech: speech normal Psych affect normal Results Lab / Micro Data Attestation: I reviewed the patient's lab results. Result Diagrams: 06/29/21 04:50 06/28/21 23:10 Labs: Laboratory Results - last 24 hr 06/28/21 22:25: Urine Color Yellow, Urine Clarity Clear, Urine pH 6.0, Ur Specific [place] 1.010, Urine Protein Negative, Urine Glucose (UA) 1000 H, Urine Ketones 50 H, Urine Occult Blood Negative, Urine Nitrite Negative, Urine Bilirubin Negative, Urine Urobilinogen Normal, Ur Leukocyte Esterase Negative, Urine RBC 0 SEEN, Urine WBC 0 SEEN, Ur Squamous Epith Cells 0 SEEN, Urine Bacteria 0 SEEN, Urine Mucus 0 SEEN 06/28/21 23:10: WBC 5.5, RBC 5.14, Hgb 14.6, Hct 43.2, MCV 84.0, MCH 28.4, MCHC 33.8, RDW Std Deviation 36.1, RDW Coeff of Danitza 11.9, Plt Count 212, MPV 13.0 H, Immature Gran % (Auto) 0.200, Neut % (Auto) 56.7, Lymph % (Auto) 32.7, [place] % (Auto) 7.3, Eos % (Auto) 2.4, Baso % (Auto) 0.7, Absolute Neuts (auto) 3.1, Absolute Lymphs (auto) 1.79, Nucleated RBC % 0 06/28/21 23:10: Sodium 122 L, Potassium 4.9, Chloride 81 L, Carbon Dioxide 25.0, Anion Gap 16 H, BUN 31 H, Creatinine 1.54 H, Estim Creat Clear Calc 57.89, Est GFR (MDRD) Af Amer 61, Est GFR (MDRD) Non-Af 51 L, BUN/Creatinine Ratio 20.1 H, Glucose 829 H*, Calcium 9.2, Total Bilirubin 0.40, AST 11 L, ALT 26, Alkaline Phosphatase 152 H, Total Protein 7.6, Albumin 3.6, Globulin 4.0, Albumin/Globulin Ratio 0.9 06/28/21 23:10: Acetone Level MODERATE H 06/29/21 00:48: POC Glucose > 500 H* 06/29/21 03:46: POC Glucose 443 H 06/29/21 04:50: WBC 6.7, RBC 4.64, Hgb 13.2, Hct 38.3 L, MCV 82.5, MCH 28.4, MCHC 34.5, RDW Std Deviation 36.2, RDW Coeff of Danitza 11.9, Plt Count 203, MPV 12.1 H, Immature Gran % (Auto) 0.200, Neut % (Auto) 43.4 L, Lymph % (Auto) 45.9 H, [place] % (Auto) 6.9, Eos % (Auto) 2.7, Baso % (Auto) 0.9, Absolute Neuts (auto) 2.9, Absolute Lymphs (auto) 3.06, Nucleated RBC % 0 06/29/21 : Serum Osmolality 319 H ABG Data ABG results: ABG 06/29/21 01:56 Specimen Type JAIRON VBG pH 7.34 VBG pO2 34 VBG HCO3 24 VBG Total CO2 25 VBG O2 Sat (Calc) 60 VBG Base Excess -2 L POC Mix VBG pCO2 Pt Tmp 45.0 O2 Delivery Device Room Air Assessment & Plan Assessment/Plan (1) Hyperosmolar hyperglycemic state (HHS): (2) Diabetes mellitus, new onset: (3) Dehydration: (4) Hyponatremia: PLAN: HHS with new onset DM-2 -Insulin drip -We will utilize DKA protocol but serum bicarb was normal on admission and therefore my suspicion of DKA is quite low -Check hemoglobin A1c -Patient will need insulin at discharge -Patient with family history of DM-2+ recent admission for acute pancreatitis -Would recommend endocrinology follow-up as an outpatient New onset DM-2 -See above -Check hemoglobin A1c -Dietitian consult for diabetic diet Acute dehydration -Patient possibly with CANDY but baseline serum creatinine is unknown -Serum creatinine is 1.54 -Continue IV hydration -Trend lab Hyponatremia -122 on admission but when corrected for hyperglycemia this corrects out to 133 -Suspect also related to acute dehydration -IV fluids and recheck in a.m. History of dilated nonischemic cardiomyopathy -No current acute issues -Need to monitor closely with volume resuscitation -Recent echo from 08/2020 shows an EF of 55% and stage I diastolic dysfunction--> EF has improved from 40% on echo previous to this -Continue home medications Hypertension -Continue carvedilol 25 mg twice daily -Continue lisinopril 10 mg daily Recent alcoholic induced pancreatitis -No current acute issues History of alcoholism -No alcohol intake in 1 month -Recommend continued cessation DVT prophylaxis -Lovenox subcu -SCDs CODE STATUS -Full code Charges/Coding Visit Charges Inpatient E&M: 11261 Init Hosp L3
[2021-06-29 05:51] LABS: Bedside Glucose 377 mg/dL (70-110)
[2021-06-29 05:51] LABS: Bedside Glucose 295 mg/dL (70-110)
[2021-06-29 05:55] LABS: ALB/GLOB Ratio 0.8 RATIO (0.9-2.4); AST(SGOT) 7 U/L (15-37); Alanine Aminotransfer ALT/SGPT 25 U/L (16-61); Albumin, Serum 2.9 g/dL (3.2-5.0); Alkaline Phosphatase 113 U/L (45-117); Anion Gap 9 (5-15); BUN 22 mg/dL (7-18); BUN/Creat Ratio 21.6 RATIO (10-20); Calcium,Total 8.4 mg/dL (8.5-10.1); Chloride 97 mmol/L (98-107); Creatinine, Serum 1.02 mg/dL (0.70-1.30); EST Glomerular Filtration Rate 82 mL/min (>60); Est Glom Filt Rate - Afr Amer 99 mL/min (>60); Estimated Creatinine Clearance 94.04 ml/min; Globulin 3.5 g/dL (2.2-4.2); Glucose 375 mg/dL (74-106); Magnesium 2.2 mg/dL (1.6-2.6); Potassium 3.2 mmol/L (3.5-5.1); Protein, Total 6.4 g/dL (6.4-8.2); Sodium Level 133 mmol/L (136-145)
[2021-06-29] MEDS: 0.9% Normal Saline 1,000 ML 250 ML IV (06:14)
[2021-06-29] MEDS: Potassium Chloride Oral Tablet 20 MEQ 40 MEQ PO (06:47)
[2021-06-29] MEDS: Dext 5%-0.45% NS 1,000 ML 150 ML IV (06:59)
[2021-06-29 07:31] LABS: Bedside Glucose 239 mg/dL (70-110)
[2021-06-29 08:05] LABS: Bedside Glucose 280 mg/dL (70-110)
[2021-06-29 08:08] LABS: Hemoglobin A1c 13.6 % (3.8-5.6)
[2021-06-29] MEDS: Enoxaparin 40 MG/0.4 ML Syringe SC ×2 (08:50→09:32)
[2021-06-29] MEDS: Carvedilol 25 MG Tablet PO ×2 (09:32→16:15)
[2021-06-29] MEDS: Insulin Lispro 100 UNIT/ML INSULN.PEN 15 UNIT SC ×3 (09:33→16:15)
[2021-06-29 11:31] LABS: Bedside Glucose 371 mg/dL (70-110)
[2021-06-29] MEDS: 0.9% Normal Saline 1,000 ML 175 ML IV ×3 (12:11→23:19)
--- NOTE | 2021-06-29 12:47 | CASEMGMT ---
RN CM BUSINESS DEVELOPMENT SALES EXECUTIVE CM to room to meet with patient for initial transition planning/care coordination assessment. RN CODY introduced self and role at [facility]. Pt voices understanding and consents to assessment at this time. Pt resting in bed in no distress at this time. @ bedside. Pt is A/O at this time and answers all questions appropriately. Care providers, pharmacy, and demographics verified/updated at this time: PCP: Dr Tay Specialists:Dr Olivier--cardiology Preferred Pharmacy:[facility] Retail Insurance: [employer] Prescription Benefit: Yes Living Will/HPOA: Pt does not currently have LW/HCPOA. Pt and made aware that he can contact SW as an out-pt and make appt in the future if he decides he would like to talk with someone about this or would like to utilize [facility] social work for advanced directive completion. Given [employer] card with information and contact number. Pt and express understanding. LNOK: , Alycia Living Arrangements: Lives w/ in ranch-style home. 2-3 steps to enter. States has been having some difficulty w/stairs recently and states, Now I know why. Has been indep w/ADL's. manages home tasks and pt's medications Transportation: Pt states drives self and states no transportation concerns at this time. also drives. DME: Denies using any DME. Does not have a glucometer. Script obtained from Dr Cagle and given to . She states she will go pick it up today so pt has it when he gets home. Pt denies need for further DME. Diabetic info/education: Pt and provided w/Rac card for Dr Carroll-endocrinology. Also given [facility] card. Pt states staff has already begun to do diabetic teaching w/him and he feels he will be comfortable administering insulin to self, as he used to give insulin to both his mother and father. HHC/SNF: No hx of either. No needs identified. Pt wishes to return home and states has no concerns with going home at time of discharge. CM to follow for any further discharge planning/needs. Pt voices no further concerns/needs at this time. Advised pt to ask for CM if any further questions/concerns/needs arise. Voices understanding. PLAN: Home w/spousal support and discharge plans in place. Business Banker and nursing to do teaching w/pt and , when available. Rob ABRAHAMN RN CM
--- NOTE | 2021-06-29 14:42 | NURSING ---
report called to ms for transfer to room 208, present
[2021-06-29 14:47] LABS: Phosphorus 2.2 mg/dL (2.5-4.9)
[2021-06-29 14:53] LABS: Anion Gap 4 (5-15); BUN 18 mg/dL (7-18); BUN/Creat Ratio 21.4 RATIO (10-20); Calcium,Total 8.2 mg/dL (8.5-10.1); Chloride 102 mmol/L (98-107); Creatinine, Serum 0.84 mg/dL (0.70-1.30); EST Glomerular Filtration Rate 102 mL/min (>60); Est Glom Filt Rate - Afr Amer 123 mL/min (>60); Estimated Creatinine Clearance 114.19 ml/min; Glucose 291 mg/dL (74-106); Potassium 3.6 mmol/L (3.5-5.1); Sodium Level 133 mmol/L (136-145)
--- NOTE | 2021-06-29 15:57 | CASEMGMT ---
Social Work SW met with pt and introduced self and role of SW. Pt states he had drank alcohol daily, at least two to three drinks a day, up until about a month ago when he was admitted to the hospital. Pt states physician informed him if he didn't stop drinking he would , and therefore pt has not had a drink since. Pt states he is a recovering alcoholic and connected with AA and a sponsor for many years. Pt states he is still connected with this group of people. SW provided list of [facility] AA meetings along with other resources for alcohol addiction programs. Pt denies any needs at this time but accepting of information. CHIQUITA Norris
[2021-06-29] MEDS: Insulin Lispro 100 UNIT/ML INSULN.PEN SC ×2 (16:16→21:05)
[2021-06-29 16:40] LABS: Bedside Glucose 229 mg/dL (70-110)
--- NOTE | 2021-06-29 19:01 | PCM.HOSP.N ---
Hospitalist Note Patient was seen and examined today, initially was in ICU but I moved him out to the floor today, patient remained stable at this time, blood sugars are coming down, I started the patient on basal insulin and immediate release insulin with each meal. I talked with patient briefly about type 2 diabetes. Patient will be reevaluated tomorrow.
[2021-06-29 21:11] LABS: Bedside Glucose 266 mg/dL (70-110)
[2021-06-29] MEDS: Acetaminophen 325 MG Tablet 650 MG PO (23:26)
[2021-06-30 02:15] VITALS: BP 132/92; PULSE 68; RESP 16; TEMP 36.5; O2SAT 100
[2021-06-30] MEDS: 0.9% Normal Saline 1,000 ML 175 ML IV ×2 (04:47→13:26)
[2021-06-30] MEDS: Insulin Lispro 100 UNIT/ML INSULN.PEN 15 UNIT SC ×2 (08:05→12:21)
[2021-06-30] MEDS: Carvedilol 25 MG Tablet PO ×2 (08:09→17:36)
[2021-06-30 08:14] VITALS: BP 112/80; PULSE 75; RESP 16; TEMP 36.6; O2SAT 97
[2021-06-30 08:40] LABS: Bedside Glucose 123 mg/dL (70-110)
[2021-06-30 09:55] LABS: Bedside Glucose 175 mg/dL (70-110)
[2021-06-30 11:45] LABS: Bedside Glucose 178 mg/dL (70-110)
[2021-06-30] MEDS: Insulin Lispro 100 UNIT/ML INSULN.PEN SC (12:21)
[2021-06-30 16:20] LABS: Bedside Glucose 91 mg/dL (70-110)
--- NOTE | 2021-06-30 16:55 | PCM.DC ---
Discharge Instructions Diet Discharge Diet: 1800 Calorie Control Diet Activity Discharge Activity: Return to Normal Activity Return to work on:: 07/03/21 Weight Bearing Status: Full weight bearing Follow Up Care Test Results: Test results from this visit will be discussed in further detail at your follow-up appointment, if applicable. Discharge Plan Admission Admit Date/Time: 06/29/21 03:11 Primary Reason for Your Visit: Type 2 diabetes Attending Provider: Raheem Cagle Primary Care Provider: Sukumar Tay Instructions Additional Instructions / Restrictions: Check your blood sugar fasting and before dinner daily, keep a log of your results Call your physician if blood sugar goes below 70 or over 400 Discharge Orders/Prescriptions Prescriptions: New metformin 500 mg tablet 500 mg PO BID Qty: 120 RF: 0 Basaglar KwikPen U-100 Insulin 100 unit/mL (3 mL) insulin pen 25 unit subcut BID Qty: 15 RF: 0 Continued cholecalciferol (vitamin D3) 25 mcg (1,000 unit) capsule 25 mcg PO DAILY RF: 0 ascorbate calcium (vitamin C) 500 mg tablet 500 mg PO DAILY RF: 0 lisinopril 10 mg tablet 10 mg PO DAILY Qty: 90 RF: 3 multivitamin 1 TABLET tablet 1 tab PO DAILY RF: 0 folic acid 1 MG tablet 1 mg PO DAILY RF: 0 polysaccharide iron complex 150 MG capsule 150 mg PO DAILYCM RF: 0 carvedilol 25 mg tablet 25 mg PO BID Qty: 180 RF: 3 Referrals / Follow Up: Sukumar Tay MD [Primary Care Provider] - Within 1 Week Disposition Disposition (needs filled in before D/C Order can be placed): Home, Self Care
[2021-06-30] MEDS: Acetaminophen 325 MG Tablet 650 MG PO (17:40)
--- NOTE | 2021-06-30 19:04 | PCM.DC.SUM ---
Providers Date of Admission: 06/29/21 Date of Discharge: 06/30/21 Primary Care Physician: Dr. Sukumar Tay MD Reason For Visit: DKA Diagnosis Discharge Diagnosis (1) Hyperosmolar hyperglycemic state (HHS): Status: Acute Code(s): E11.00 - Type 2 diabetes mellitus with hyperosmolarity without nonketotic hyperglycemic-hyperosmolar coma (NKHHC); E11.65 - Type 2 diabetes mellitus with hyperglycemia (2) Diabetes mellitus, new onset: Status: Acute Code(s): E11.9 - Type 2 diabetes mellitus without complications (3) Dehydration: Status: Acute Code(s): E86.0 - Dehydration (4) Hyponatremia: Status: Acute Code(s): E87.1 - Hypo-osmolality and hyponatremia Plan: 1. Hyperosmolar nonketotic hyperglycemia with new onset type 2 diabetes #2 new onset type 2 diabetes #3 acute dehydration #4 essential hypertension Medications at Discharge Home Medications folic acid 1 mg PO DAILY 06/17/20 multivitamin 1 tab PO DAILY 06/17/20 carvedilol 25 mg tablet 25 mg PO BID #180 tab 09/09/20 ascorbate calcium (vitamin C) 500 mg tablet 500 mg PO DAILY 03/24/21 cholecalciferol (vitamin D3) 25 mcg (1,000 unit) capsule 25 mcg PO DAILY 03/24/21 lisinopril 10 mg tablet 10 mg PO DAILY #90 tab 03/24/21 polysaccharide iron complex 150 mg PO DAILYCM 06/29/21 insulin glargine [Basaglar KwikPen U-100 Insulin] 25 unit SUBCUT BID #15 ml 06/30/21 metformin 500 mg PO BID #120 tab 06/30/21 Hospital Course Operations None Procedures None Summary of Care Provided Minutes Spent on Discharge: 31 Hospital Course: This 50-year-old black male was seen in the emergency room at [facility] with complaints of malaise, excessive thirst, excessive urination and abnormal outpatient blood work. He had outpatient blood work done that showed his blood sugar was around 700 and he was referred to the emergency room for further evaluation. Patient did not have a history of diabetes prior to his emergency room visit. Labs were obtained in the emergency room, and showed his blood sugar to be extremely elevated but he had no ketone or acetone indicating he was not in DKA. Patient's BUN and creatinine were elevated. Patient was admitted to ICU and placed on an insulin drip, within several hours, the insulin drip was able to be stopped and he was transferred out to a floor bed. He received diabetic teaching and nutritional services regarding type 2 diabetes. On 06/30/2021, patient was seen and examined: On examination he appeared in good health and spirits. Vital signs as documented. Skin warm and dry and without overt rashes. Neck without JVD, neck was supple, trachea midline, thyroid was normal. Lungs clear bilaterally, normal air movement was noted. Heart exam notable for regular rhythm, normal sounds and absence of murmurs, rubs or gallops. Abdomen unremarkable and without evidence of organomegaly, masses, or abdominal aortic enlargement. Bowel sounds are present, abdomen is not distended. Extremities nonedematous, no cyanosis was noted, no clubbing was noted. Neuro: Cranial nerves II through XII are grossly intact, no focal motor deficits were noted, sensation to light touch and pinprick intact, motor exam 5/5 throughout. Psych: Patient is alert and oriented x3, he does not appear anxious or depressed, he does not appear agitated. On 06/30/2021, patient was discharged home in stable condition Weight / BMI Weight Weight: 82 kg Body Mass Index (BMI) 23.5 ABG / Lab / Microbiology Data Result Diagrams: 06/29/21 04:50 06/29/21 14:30 Laboratory: Laboratory Results - last 24 hr 06/29/21 21:04: POC Glucose 266 H 06/30/21 07:58: POC Glucose 123 H 06/30/21 09:53: POC Glucose 175 H 06/30/21 11:40: POC Glucose 178 H 06/30/21 16:14: POC Glucose 91 D/C Instructions Discharge Diet: 1800 Calorie Control Diet Return to work on: 07/03/21 Weight Bearing Status: Full weight bearing Meaningful Use Info Meaningful Use Diagnoses (Choose all that apply): None applicable Discharge Plan Admission Admit Date/Time: 06/29/21 03:11 Primary Reason for Your Visit: Type 2 diabetes Attending Provider: Raheem Cagle Primary Care Provider: Sukumar Tay Instructions Patient Instructions: High Blood Sugar (Hyperglycemia), Hypoglycemia (Low Blood Sugar), Managing Type 2 Diabetes, How to Check Your Blood Sugar Additional Instructions / Restrictions: Check your blood sugar fasting and before dinner daily, keep a log of your results Call your physician if blood sugar goes below 70 or over 400 Discharge Orders/Prescriptions Prescriptions: New metformin 500 mg tablet 500 mg PO BID Qty: 120 RF: 0 Basaglar KwikPen U-100 Insulin 100 unit/mL (3 mL) insulin pen 25 unit subcut BID Qty: 15 RF: 0 Continued cholecalciferol (vitamin D3) 25 mcg (1,000 unit) capsule 25 mcg PO DAILY RF: 0 ascorbate calcium (vitamin C) 500 mg tablet 500 mg PO DAILY RF: 0 lisinopril 10 mg tablet 10 mg PO DAILY Qty: 90 RF: 3 multivitamin 1 TABLET tablet 1 tab PO DAILY RF: 0 folic acid 1 MG tablet 1 mg PO DAILY RF: 0 polysaccharide iron complex 150 MG capsule 150 mg PO DAILYCM RF: 0 carvedilol 25 mg tablet 25 mg PO BID Qty: 180 RF: 3 Referrals / Follow Up: Sukumar Tay MD [Primary Care Provider] - Within 1 Week Disposition Disposition (needs filled in before D/C Order can be placed): Home, Self Care Charges/Coding Visit Charges Inpatient E&M: 31928 Disch Hosp
== END 2021-06-30 19:00 | disposition home or self-care (01) | DRG 638 ==
LOC: ED 06-29 02:11 → ICU 06-29 03:46 → MS2 06-29 14:57
PROVIDERS: Admitting Provider Internal Medicine; Emergency Provider Emergency Medicine; PCP Family Medicine; Visit Provider Internal Medicine
DX: E11.00 Type 2 diabetes mellitus with hyperosmolarity without nonketotic hyperglycemic-hyperosmolar coma (NKHHC) (principal); E87.1 Hypo-osmolality and hyponatremia; I50.22 Chronic systolic (congestive) heart failure; I42.0 Dilated cardiomyopathy; N17.9 Acute kidney failure, unspecified; I11.0 Hypertensive heart disease with heart failure; E86.0 Dehydration; F17.290 Nicotine dependence, other tobacco product, uncomplicated; E11.65 Type 2 diabetes mellitus with hyperglycemia; Z79.899 Other long term (current) drug therapy; F10.21 Alcohol dependence, in remission
CPT/HCPCS: 80048; 80053; 81001; 82009; 82803; 82962; 83036; 83735; 83930; 84100; 84443; 85025; 93005; 97802; 99285; J7030; A4216; J7799

== ENCOUNTER 2024-06-10 06:20 | Emergency (ER) | payer BC, SELFPAY ==
[2024-06-10 06:21] VITALS: BP 150/101; PULSE 78; RESP 18; TEMP 36.3; O2SAT 100; BMI 28.6
--- NOTE | 2024-06-10 06:25 | RAD_ITS ---
EXAM: XR LEFT FOOT COMPLETE, 3 OR MORE VIEWS CLINICAL INDICATION: pain and swelling TECHNIQUE: Frontal, lateral and oblique views of the left foot. COMPARISON: No relevant prior studies available. FINDINGS: BONES/JOINTS: Hallux valgus deformity with bunion formation involving the medial aspect of the first metatarsal head. No acute fracture. Preservation of the joint space. No sclerotic or destructive changes observed. SOFT TISSUES: Mild soft tissue swelling of the fifth toe. No radiopaque foreign body. RAD/Foot min 3 Views IMPRESSION: 1. Mild soft tissue swelling of the fifth toe, but no acute osseous findings.. 2. Hallux valgus deformity with bunion formation involving the medial aspect of the first metatarsal head. Electronically Signed: Danilo Vazquez MD at 8:02 EST ,
--- NOTE | 2024-06-10 06:50 | ED.VIS.LOWEX ---
HPI History of Present Illness HPI Narrative: 53-year-old male history of cardiomyopathy, CHF, pancreatitis and diabetes. Complaining of atraumatic left foot pain primarily around the fourth and fifth small and ring toes over the last 2 weeks. Denies any fall injury or trauma. No fever. States he has discomfort. Worse with walking. No fever or redness. No chills. No prior foot surgery or history of a diabetic foot infection. Chief Complaint: Lower Extremity Injury Informant: patient Occured/Mechanism Mechanism/Context: No injury and No blunt trauma Onset/Context/Timing Onset: Weeks Context: Gradual Onset Timing: Continuous Quality of Pain: Dull and Aching Current Severity: Mild Maximum Severity: Mild Associated Symptoms Associated Symptoms: Negative for Parasthesia, Weakness or Loss of Funtion Narrative Narrative: 53-year-old diabetic male with atraumatic foot pain primarily of the fourth and fifth toes for the last 2 weeks. Prior similar symptoms: No Recent Illness/Hospitalization: No PFSH PFSH Medical History CANDY (acute kidney injury) Acute pancreatitis Essential (primary) hypertension Chronic systolic CHF (congestive heart failure), NYHA class 2 Cardiomyopathy, dilated, nonischemic Alcohol abuse Tobacco abuse Home Medications ?Medication ?Instructions ?Recorded ?Last Taken ?Type multivitamin 1 tab PO DAILY SUPPLEMENT 06/17/20 06/28/21 History ascorbate calcium (vitamin C) 500 500 mg PO DAILY vitamin 03/24/21 06/28/21 History mg tablet cholecalciferol (vitamin D3) 25 25 mcg PO DAILY vitamin 03/24/21 06/28/21 History mcg (1,000 unit) capsule atorvastatin 40 mg tablet 40 mg PO DAILY 07/11/22 Unknown History omega-3 fatty acids 1,000 mg 1,000 mg PO DAILY 07/11/22 Unknown History capsule amlodipine 5 mg tablet (Norvasc) 5 mg PO DAILY #90 tabs 04/12/23 Unknown Rx carvedilol 25 mg tablet See Rx Instructions .Route 08/22/23 Unknown Rx .COMPLEX #180 tabs empagliflozin 10 mg tablet 25 mg PO DAILY 02/29/24 Unknown History (Jardiance) metformin 500 mg tablet 1,000 mg PO BID 02/29/24 Unknown History lisinopril 20 mg tablet 20 mg PO BID #180 tabs 05/13/24 Unknown Rx cephalexin 500 mg capsule 500 mg PO Q6 #28 CAPSULES 06/10/24 Unknown Rx multivitamin 1 tab PO DAILY 06/10/24 Unknown History Allergy/AdvReac Type Severity Reaction Status Date / Time No Known Allergies Allergy Verified 06/10/24 06:21 Family History Father , age 82 Heart disease Alzheimer's dementia Diabetes Mother congestive heart failure Cardiac aneurysm Diabetes Surgical History History of right and left heart catheterization (09/05/17) Previous back surgery History of tonsillectomy Social History Smoking Status: Current every day smoker tobacco type: cigars alcohol intake: former details: Quit 1 month ago after hospitalization for acute alcoholic pancreatitis substance use type: does not use ROS ROS ED ROS Narrative Denies recent illness. Constitutional Constitutional ED: Denies chills or fever(s) Eyes Eyes: Denies blurry vision ENT ENT ED: Denies ear pain Cardiovascular Cardiovascular: Denies chest pain Respiratory/Chest Respiratory/Chest: Denies cough or dyspnea Gastrointestinal Gastrointestinal: Denies abdominal pain Genitourinary Genitourinary ED: Denies dysuria Musculoskeletal Musculoskeletal: Denies arthralgias, back pain or myalgias Integumentary Denies abscess Neurologic Neurologic: Denies headache(s) Psychiatric Psychiatric: Denies anxiety Endocrine Endocrinology: Denies polydipsia or polyphagia Hematologic/Lymphatic Hematologic/Lymphatic: Denies easy bleeding, easy bruising or lymphadenopathy Allergic/Immunologic Allergic/Immunologic ED: Denies mouth swelling, tongue swelling or urticaria EXAM Physical Exam Narrative Exam Narrative: 53-year-old male vital signs are stable afebrile. No acute distress. Clinically looks well. H EENT exam unremarkable. Lungs clear. Heart regular rate and rhythm no murmur rate about 75. Chest wall ribs nontender. Abdomen soft nontender. Moving all 4 extremities. Neurovascularly intact. His left foot minimal swelling along the fourth and fifth toes. Mild tenderness along the distal phalanx and MTP joints. No obvious cellulitis. No foot ulcer or sore. No break in skin. He does have some athletes foot and he has got cream between his toes. There is no gross bony deformity. There is no abscess. There is no lymphangitic streaking or inguinal lymphadenopathy. He is able to wiggle his toes and feet. He is able to dorsi plantarflex. He is palpable DP pulses. He has sensation. Const Vital Signs: 06/10/24 06:21 Temperature 97.4 F L Temperature Source Oral Pulse Rate 78 Respiratory Rate 18 Blood Pressure 150/101 H Blood Pressure Mean 117 Pulse Ox 100 Oxygen Delivery Method Room Air Positive well nourished and well developed; Negative for cachectic, contractures or unkempt General Appearance ED: well developed and NAD; Negative for unkempt, cachectic or contractures Nutritional Appearance: Negative for cachectic HEENT Reports moist mucous membranes normocephalic and atraumatic; Negative for trauma or tenderness Eyes PERRL Neck full ROM and supple Thyroid: Negative for tender Lymph Lymphatic: Negative for other Chest Wall inspection of chest normal and palpation of chest normal Resp normal respiratory effort, no retractions and clear to auscultation bilaterally Auscultation: Negative for rales, rhonchi, wheezes or diminished lung sounds Cardio regular rate, regular rhythm, S1 normal heart sound, S2 normal heart sound and no murmurs Rate: Negative for bradycardia or tachycardic Rhythm: Negative for abnormal rhythm Bruits: Negative for other GI non-tender, non-distended and no masses Inspection: Negative for abdominal distention Palpation: soft; Negative for tender, guarding or rebound tenderness present Back/Spine no CVA tenderness General Back: Negative for CVA tenderness Cervical Spine: Negative for cervical spine tenderness Thoracic Spine / Upper Back: Negative for thoracic spinal tenderness Lumbar Spine / Lower Back: Negative for lumbar spinal tenderness Extremity full ROM; Negative for normal to inspection Extremity Narrative: Left foot. Mild swelling. Tenderness fourth and fifth toes and distal metatarsals. No pressure ulcer. No cellulitis. No lymphangitic streaking. No bony deformity or signs of trauma. Feet are neurovascularly intact. Able to wiggle his toes. Normal touch sensation. Normal DP pulse. General Extremety ED: Yes edema; Negative for cyanosis General Extremity: edema; Negative for cyanosis Neuro oriented x3, CN's II-XII intact bilaterally, moves all extremities and no sensory deficits noted Sensorium / Orientation: alert, oriented to person, oriented to place and oriented to time; Negative for orientation impaired, confused, lethargic or stuporous Motor Exam: strength 5/5 throughout Psych mental status grossly normal Appearance: Negative for unkempt Mood & Affect: Negative for anxious Skin no wounds Lesions: no lesions Rashes: no rashes Trauma: Negative for abrasion, laceration or puncture MDM MDM MDM Narrative Medical decision making narrative: 53-year-old male concern for possible diabetic foot infection. Versus other causes for his pain for the last 2 weeks. Repeat exam is unchanged. His exam is not impressive there may be a little bit of swelling. But has had no trauma. He has a normal white count. Normal sed rate and CRP. There is no obvious ulceration or or disorder of his foot. Be placed on Keflex 500 4 times daily for a week. I will have him call and follow-up with podiatry later today and take an appointment this week. For further evaluation. He has no fever, no white count and no significant physical exam findings that he would need to be admitted to the hospital. History & Record Review Discussion w/independent historian: Patient Lab Data Attestation: I reviewed the patient's lab results. Lab results narrative: CBC shows normal white count 7. H&H 13 and 41. Platelets 269. Electrolytes show sodium 135. Gap 4. BUN 26 creatinine 0.81. Glucose 117. Said rate is 13. C reactive protein is less than 2.9. Labs: Laboratory Results - last 24 hr 06/10/24 06:35 WBC 7.7 RBC 4.76 Hgb 13.5 Hct 41.0 MCV 86.1 MCH 28.4 MCHC 32.9 RDW Std Deviation 43.5 RDW Coeff of Danitza 13.8 Plt Count 269 MPV 9.9 Immature Gran % (Auto) 0.300 Neut % (Auto) 41.3 L Lymph % (Auto) 41.2 H Villalba % (Auto) 12.6 H Eos % (Auto) 3.8 Baso % (Auto) 0.8 Absolute Neuts (auto) 3.2 Absolute Lymphs (auto) 3.17 Nucleated RBC % 0 ESR 13 Sodium 135 L Potassium 3.9 Chloride 104 Carbon Dioxide 27.0 Anion Gap 4 L BUN 26 H Creatinine 0.81 Estim Creat Clear Calc 125.17 Est GFR (MDRD) Af Amer 127 Est GFR (MDRD) Non-Af 105 BUN/Creatinine Ratio 32.1 H Glucose 117 H Calcium 9.8 C-React Prot Ext Range < 2.90 Radiography Diagnostic Testing: Left foot x-ray, 3 views, interpreted by myself. Shows mild soft tissue swelling of the left lateral foot along the fifth toe. No fracture. No foreign body. No subcu air or gas. Discharge Plan Triage Chief Complaint: Lower Extremity Injury ED Provider: Cam Gonzalez Dx/Rx/DC Orders Clinical Impression: Acute pain of left foot, History of diabetes mellitus Instructions: ED Pain, Acute, Uncertain Cause Prescriptions: New cephalexin 500 mg capsule 500 mg PO Q6 Qty: 28 0RF No Action cholecalciferol (vitamin D3) 25 mcg (1,000 unit) capsule 25 mcg PO DAILY ascorbate calcium (vitamin C) 500 mg tablet 500 mg PO DAILY Jardiance 10 mg tablet 25 mg PO DAILY atorvastatin 40 mg tablet 40 mg PO DAILY Patient Comments: TAKE 1 TABLET BY MOUTH EVERY DAY omega-3 fatty acids 1,000 mg capsule 1,000 mg PO DAILY amlodipine [Norvasc] 5 mg tablet 5 mg PO DAILY Qty: 90 3RF metformin 500 mg tablet 1,000 mg PO BID Rx Instructions: two tabs bid multivitamin 1 TABLET tablet 1 tab PO DAILY multivitamin Tablet 1 tab PO DAILY carvedilol 25 mg tablet See Rx Instructions .ROUTE .COMPLEX Qty: 180 3RF Dose Instruction: TAKE 1 TABLET BY MOUTH TWICE DAILY WITH FOOD OR SNACK FOR HEART Rx Instructions: TAKE 1 TABLET BY MOUTH TWICE DAILY WITH FOOD OR SNACK FOR HEART lisinopril 20 mg tablet 20 mg PO BID Qty: 180 3RF Primary Care Provider: Sukumar Tay Referrals: Ari Dorantes MD [Med Staff - Active Staff] - As soon as possible (Call his office today and try to get in the next several days to have your foot reevaluated.) Sukumar Tay MD [Primary Care Provider] - Sukumar Cheek DPM [Med Staff - Active Staff] - As soon as possible (Call their office today and try to get in to be seen as soon as possible this week.) Activity Restrictions/Additional Instructions: Motrin and Tylenol for pain. Your labs are normal. There is no obvious signs of infection. I am put you on antibiotic Keflex in case there is an underlying infection. Take it 4 times a day. I gave you 2 different cosmetic account coordinator either Dr. Dorantes or Dr. Cam Cheek. Call their office to see you get you and in the next several days and follow-up to be reevaluated. This could be an underlying subtle infection versus other causes. Your x-ray and labs look good. Also ice and elevate your foot to decrease the pain and swelling. Print Language: Nigerien Disposition Disposition: Home, Self Care
[2024-06-10 06:52] LABS: Erythrocyte Sedimentation Rate 13 mm/hr (0-20)
[2024-06-10 06:53] LABS: Absolute Lymphocyte Count 3.17 X10^3/uL (0.83-4.51); Absolute Neutrophil Count 3.2 X10^3/uL (2.0-7.7); Basophil# 0.06 X10^3/uL; Basophil% 0.8 % (0-1); Eosinophil# 0.29 X10^3/uL; Eosinophils% 3.8 % (0-5); Hemoglobin 13.5 g/dL (13.0-16.5); Lymphocyte # 3.17 X10^3/ul (0.83-4.51); Lymphocyte % 41.2 % (19-41); Mean Corp Hgb Conc 32.9 g/dL (32-36); Mean Corpuscular Hgb 28.4 pg (27.0-32.0); Mean Corpuscular Volume 86.1 fL (80-94); Mean Platelet Vol. 9.9 fl (6.2-12.0); Monocyte# 0.97 X10^3/uL; Monocyte% 12.6 % (0-10); NRBC Flagged by Analyzer 0 % (0-5); Neutrophil # 3.19 X10^3/uL (2.7-7.7); Neutrophil % 41.3 % (47-70); Platelet Count 269 K/mm3 (150-450); RBC Distribution Width CV 13.8 % (11.6-14.6); RBC Distribution Width SD 43.5 fl (35.1-43.9); Red Blood Count 4.76 M/mm3 (4.6-6.2); White Blood Count 7.7 K/mm3 (4.4-11.0)
[2024-06-10 06:58] LABS: Anion Gap 4 (5-15); BUN 26 mg/dL (7-18); BUN/Creat Ratio 32.1 RATIO (10-20); CRP < 2.90 mg/L (0.0-3.0); Calcium,Total 9.8 mg/dL (8.5-10.1); Chloride 104 mmol/L (98-107); Creatinine, Serum 0.81 mg/dL (0.70-1.30); EST Glomerular Filtration Rate 105 mL/min (>60); Est Glom Filt Rate - Afr Amer 127 mL/min (>60); Estimated Creatinine Clearance 125.17 ml/min; Glucose 117 mg/dL (74-106); Potassium 3.9 mmol/L (3.5-5.1); Sodium Level 135 mmol/L (136-145)
[2024-06-10 07:25] VITALS: BP 138/89; PULSE 72; RESP 17; TEMP 36.3; O2SAT 99
== END 2024-06-10 07:27 | disposition home or self-care (01) ==
PROVIDERS: Emergency Provider Emergency Medicine; PCP Family Medicine; Visit Provider Emergency Medicine
DX: M79.672 Pain in left foot (principal); I11.0 Hypertensive heart disease with heart failure; I50.22 Chronic systolic (congestive) heart failure; I42.0 Dilated cardiomyopathy; E11.9 Type 2 diabetes mellitus without complications; Z79.899 Other long term (current) drug therapy; Z79.84 Long term (current) use of oral hypoglycemic drugs
CPT/HCPCS: 73630; 80048; 85025; 85652; 86140; 99283; A4216

== ENCOUNTER → 2024-06-12 | Outpatient (CLI) | payer BC, SELFPAY | END | disposition home or self-care (01) | PROVIDERS: PCP Family Medicine; Referring Provider Podiatrist Foot & Ankle Surgery; Visit Provider Podiatrist Foot & Ankle Surgery | DX: L02.612 Cutaneous abscess of left foot (principal) | CPT/HCPCS: 87070; 87075; 87077; 87101; 87186; 87205 ==

== ENCOUNTER 2024-10-01 21:43 | Emergency (ER) | payer BC, SELFPAY ==
[2024-10-01 21:43] VITALS: BP 132/96; PULSE 100; RESP 18; TEMP 36.9; O2SAT 98; BMI 27.4
[2024-10-01 21:45] VITALS: BP 132/96; PULSE 100; RESP 18; TEMP 36.9; O2SAT 98
[2024-10-01 22:21] LABS: Absolute Lymphocyte Count 2.82 X10^3/uL (0.83-4.51); Basophil# 0.07 X10^3/uL; Basophil% 1.2 % (0-1); Eosinophil# 0.22 X10^3/uL; Eosinophils% 3.8 % (0-5); Hematocrit 43.9 % (40-54); Hemoglobin 14.7 g/dL (13.0-16.5); Lymphocyte # 2.82 X10^3/ul (0.83-4.51); Lymphocyte % 48.2 % (19-41); Mean Corp Hgb Conc 33.5 g/dL (32-36); Mean Corpuscular Volume 86.6 fL (80-94); Mean Platelet Vol. 9.1 fl (6.2-12.0); Monocyte# 0.69 X10^3/uL; Monocyte% 11.8 % (0-10); NRBC Flagged by Analyzer 0 % (0-5); Neutrophil # 2.04 X10^3/uL (2.7-7.7); Neutrophil % 34.8 % (47-70); Platelet Count 280 K/mm3 (150-450); RBC Distribution Width CV 14.6 % (11.6-14.6); RBC Distribution Width SD 46.8 fl (35.1-43.9); Red Blood Count 5.07 M/mm3 (4.6-6.2); White Blood Count 5.9 K/mm3 (4.4-11.0)
[2024-10-01] MEDS: Morphine 4 MG/ML Syringe IV (22:25)
[2024-10-01] MEDS: Ondansetron 4 MG/2 ML Vial IV (22:25)
[2024-10-01] MEDS: Piperacil/Tazobactam 3.375 GM in 0.9% Normal Saline (50mL MB+) 50 ML IV (22:30)
--- NOTE | 2024-10-01 22:30 | RAD_ITS ---
PROCEDURE: FOOT MIN 3 VIEWS 10/01/2024 REASON FOR EXAM: ? OSTEO TECHNIQUE: 3 views of the right foot. COMPARISON: None FINDINGS: Bones: No visible fracture. No bone destruction to suggest osteomyelitis. Joints: Mild hallux valgus deformity. Soft tissues: Soft tissues are unremarkable. Other: RAD/Foot min 3 Views IMPRESSION: NO X-RAY EVIDENCE OF OSTEOMYELITIS. Reading Location: [facility]
[2024-10-01 22:50] LABS: Anion Gap 13 (5-15); BUN 15 mg/dL (4-19); BUN/Creat Ratio 19.5 RATIO (10-20); Calcium,Total 9.4 mg/dL (7.6-11.0); Carbon Dioxide 24.3 mmol/L (21.0-32.0); Chloride 105 mmol/L (98-108); Creatinine, Serum 0.79 mg/dL (0.70-1.20); EST Glomerular Filtration Rate 106 (>60); Estimated Creatinine Clearance 117.33 ml/min (50-250); Glucose 118 mg/dL (70-99); Potassium 4.1 mmol/L (3.3-5.1); Sodium Level 142 mmol/L (133-145)
[2024-10-01 22:52] LABS: CRP < 3.00 mg/L (0.0-3.0)
[2024-10-01 22:58] LABS: Lactic Acid 2.1 mmol/L (0.0-2.0)
[2024-10-01 23:00] VITALS: BP 135/65; PULSE 60; RESP 16; TEMP 37; O2SAT 97
[2024-10-01] MEDS: Vancomycin HCl 1,500 MG in 0.9% Normal Saline (500mL Bag) 500 ML 250 MG IV (23:17)
--- NOTE | 2024-10-01 23:18 | EDS_ITS ---
HPI History of Present Illness Chief Complaint: Rash Informant: patient and spouse/S.O. Narrative Narrative: Patient is a 53-year-old male with past medical history of hypertension cardiomyopathy and congestive heart failure as well as insulin-dependent diabetes. He states he has been dealing with a rash on his feet for multiple months and is even seen a lining folder for this. He states in the last 2 to 3 days he has noticed increased swelling and pain of his right fourth toe. He states there was no trauma. He denies any fevers or chills but states that despite using topical cream the toe is continue to be red and swollen and painful. Secondary to this he has concern for infection and therefore comes in for evaluation. [facility] Medical History CANDY (acute kidney injury) Acute pancreatitis Essential (primary) hypertension Chronic systolic CHF (congestive heart failure), NYHA class 2 Cardiomyopathy, dilated, nonischemic Alcohol abuse Tobacco abuse Home Medications ?Medication ?Instructions ?Recorded ?Last Taken ?Type ascorbate calcium (vitamin C) 500 500 mg PO DAILY emeterio min 03/24/21 06/28/21 History mg tablet cholecalciferol (vitamin D3) 25 25 mcg PO DAILY vitami n 03/24/21 06/28/21 History mcg (1,000 unit) capsule atorvastatin 40 mg tablet 40 mg PO DAILY 07/11/22 Unkn own History omega-3 fatty acids 1,000 mg 1,000 mg PO DAILY 3 Unknown History capsule amlodipine 5 mg tablet (Norvasc) 5 mg PO DAILY #90 tab s 04/12/23 Unknown Rx carvedilol 25 mg tablet See Rx Instructions .Route 0 08/22/23 Unknown Rx .COMPLEX #180 tabs empagliflozin 10 mg tablet 25 mg PO DAILY 02/29/24 Unk nown History (Jardiance) metformin 500 mg tablet 1,000 mg PO BID 02/29/24 Unk nown History lisinopril 20 mg tablet 20 mg PO BID #180 tabs 05/13 Unknown Rx multivitamin 1 tab PO DAILY 06/10/24 Unkn own History insulin glargine 100 unit/mL (3 28 unit subcut QDAY Unknown History mL) subcutaneous pen, sensor (Basaglar Tempo Pen (U-100) Insulin) clindamycin HCl 300 mg capsule 300 mg PO 4X/DAY 10 day s #40 caps 10/01/24 Unknown Rx oxycodone-acetaminophen 5 mg-325 1 tab PO Q6H PRN pain 3 days #12 10/01/24 Unknown Rx mg tablet (Percocet) tabs Allergy/AdvReac Type Severity Reaction Status Date / Time No Known Allergies Allergy Verified 10/01/24 21:45 Family History (Reviewed 07/31/24 @ 08:43 by Jevon Chu COMPLIANCE AND CONTROL ANALYST, COMPLIANCE AND CONTROL ANALYST-C) Father , age 82 Heart disease Alzheimer's dementia Diabetes Mother congestive heart failure Cardiac aneurysm Diabetes Surgical History (Reviewed 07/31/24 @ 08:43 by Jevon Chu COMPLIANCE AND CONTROL ANALYST, COMPLIANCE AND CONTROL ANALYST-C) History of right and left heart catheterization (09/05/17) Previous back surgery History of tonsillectomy Social History Smoking Status: Current every day smoker tobacco type: cigars alcohol intake: former details: Quit 1 month ago after hospitalization for acute alcoholic pancr eatitis substance use type: does not use ROS ROS ED Constitutional Constitutional ED: Denies chills or fever(s) ENT ENT ED: Denies sore throat Cardiovascular Cardiovascular: Denies chest pain Respiratory/Chest Respiratory/Chest: Denies cough or dyspnea Gastrointestinal Gastrointestinal: Denies abdominal pain, diarrhea, nausea or vomiting Genitourinary Genitourinary ED: Denies dysuria Musculoskeletal Musculoskeletal: Reports other Details: Positive right fourth toe pain Integumentary Reports rash Neurologic Neurologic: Denies headache(s) Hematologic/Lymphatic Hematologic/Lymphatic: Denies easy bleeding or easy bruising EXAM Physical Exam Const Vital Signs: 10/01/24 21:43 10/01/24 21:45 10/01/24 23:00 Temperature 98.4 F 98.4 F 98.6 F Temperature Source Oral Oral Oral Pulse Rate 100 100 60 Respiratory Rate 18 18 16 Blood Pressure 132/96 H 132/96 H 135/65 H Blood Pressure Mean 108 108 88 Pulse Ox 98 98 97 Oxygen Delivery Method Room Air Room Air Room Air Positive well nourished and well developed General Appearance ED: well developed HEENT HEENT Narrative: Normocephalic atraumatic Eyes PERRL and EOMs intact bilaterally Neck supple Neck Narrative: No nuchal rigidity or meningeal sign Resp normal respiratory effort and clear to auscultation bilaterally Cardio regular rate and regular rhythm Extremity Extremity Narrative: Bilateral lower extremities are neurovascularly intact. Patient does have scaling and excoriation to the dorsal aspect of bilateral feet which he states has been chronic in nature. There is erythema warmth and soft tissue swelling of the right fourth toe. No obvious abscess formation. No obvious felon. No crepitance. No lymphangitic streaking Remainder of the exam is normal Neuro oriented x3, CN's II-XII intact bilaterally and no sensory deficits noted Sensorium / Orientation: alert Motor Exam: strength 5/5 throughout Psych mental status grossly normal Skin Skin Narrative: Soft tissue changes to the bilateral feet and right fourth toe as documented above MDM MDM MDM Narrative Medical decision making narrative: Patient presented to the ER slightly hypertensive but has a past medical history of this and otherwise with stable vital. He reported increased pain and redness to his right fourth toe without trauma. History and physical exam suggest this is most likely cellulitis. However with his diabetic status he is technically immunosuppressed so there is concern for osteomyelitis versus Charcot joint. Patient also could be developing sepsis. There is concern for abscess versus felon. By physical exam however there is no obvious drainable abscess or soft tissue changes to suggest felon so therefore there is no need for an incision and drainage. Basic blood work was obtained and he does not have a leukocytosis or left shift lactic acid is only elevated by 0.1 which is not clinically significant and goes against systemic infection/sepsis. Patient CRP is also normal going against osteomyelitis. The patient's foot x-ray was obtained to check for moth-eaten appearance but did not reveal any sign of this or signs of potential foreign body causing the infection. He was treated with vancomycin and Zosyn in the ER as there was concern for osteomyelitis upon his arrival. However at this time as he does not have signs of osteomyelitis on x-ray his laboratory studies do not suggest systemic infection and his vitals are stable I do not feel there is need for admission. Patient will be placed on clindamycin secondary to the soft tissue infection and can follow-up with podiatry on Sunday as an outpatient. History & Record Review Discussion w/independent historian: Patient and Significant other Lab Data Attestation: I reviewed the patient's lab results. Labs: Laboratory Results - last 24 hr 10/01/24 10/01/24 22:16 22:24 WBC 5.9 RBC 5.07 Hgb 14.7 Hct 43.9 MCV 86.6 MCH 29.0 MCHC 33.5 RDW Std Deviation 46.8 H RDW Coeff of Danitza 14.6 Plt Count 280 MPV 9.1 Immature Gran % (Auto) 0.200 Neut % (Auto) 34.8 L Lymph % (Auto) 48.2 H Jerome % (Auto) 11.8 H Eos % (Auto) 3.8 Baso % (Auto) 1.2 H Absolute Neuts (auto) 2.0 Absolute Lymphs (auto) 2.82 Nucleated RBC % 0 Sodium 142 Potassium 4.1 Chloride 105 Carbon Dioxide 24.3 Anion Gap 13 BUN 15 Creatinine 0.79 Estim Creat Clear Calc 117.33 Est GFR (MDRD) Non-Af 106 BUN/Creatinine Ratio 19.5 Glucose 118 H Lactic Acid 2.1 H Calcium 9.4 C-React Prot Ext Range < 3.00 Radiography Diagnostic Testing: Clinical Impression(s) from Imaging Studies Foot X-Ray 10/01/24 22:30 IMPRESSION: NO X-RAY EVIDENCE OF OSTEOMYELITIS. Reading Location: [facility] Right foot x-ray as interpreted by the emergency medicine physician reveals no acute fracture or dislocation retained foreign body or moth-eaten appearance of the bone to suggest osteomyelitis. Discharge Plan Triage Chief Complaint: Rash ED Provider: Ezequiel Zurita Dx/Rx/DC Orders Clinical Impression: Cellulitis of fourth toe of right foot, Cardiomyopathy, dilated, nonischemic, Essential (primary) hypertension, Insulin dependent diabetes mellitus Instructions: Cellulitis Dc Prescriptions: New clindamycin HCl 300 mg capsule 300 mg PO 4X/DAY 10 Days Qty: 40 0RF oxycodone-acetaminophen [Percocet] 5-325 mg tablet 1 tab PO Q6H PRN (Reason: pain) 3 Days Qty: 12 0RF No Action cholecalciferol (vitamin D3) 25 mcg (1,000 unit) capsule 25 mcg PO DAILY ascorbate calcium (vitamin C) 500 mg tablet 500 mg PO DAILY Jardiance 10 mg tablet 25 mg PO DAILY atorvastatin 40 mg tablet 40 mg PO DAILY Patient Comments: TAKE 1 TABLET BY MOUTH EVERY DAY omega-3 fatty acids 1,000 mg capsule 1,000 mg PO DAILY amlodipine [Norvasc] 5 mg tablet 5 mg PO DAILY Qty: 90 3RF metformin 500 mg tablet 1,000 mg PO BID Rx Instructions: two tabs bid Basaglar Tempo Pen(U-100)Insln 100 unit/mL (3 mL) insulin pen, sensor 28 unit subcut QDAY multivitamin Tablet 1 tab PO DAILY carvedilol 25 mg tablet See Rx Instructions .ROUTE .COMPLEX Qty: 180 3RF Dose Instruction: TAKE 1 TABLET BY MOUTH TWICE DAILY WITH FOOD OR SNACK FOR HEART Rx Instructions: TAKE 1 TABLET BY MOUTH TWICE DAILY WITH FOOD OR SNACK FOR HEART lisinopril 20 mg tablet 20 mg PO BID Qty: 180 3RF Stand Alone Forms: ED Work / School Excuse Primary Care Provider: Sukumar Tay Referrals: Sukumar Tay MD [Primary Care Provider] - Shar Virk DPM [Med Staff - Active Staff] - Activity Restrictions/Additional Instructions: Please follow-up with podiatry on Sunday as you have already scheduled. However if you develop a fever increased redness swelling or lymphangitic streaking or have any further concerns please return to the ER for repeat evaluation. Print Language: Tajik Disposition Disposition: Home, Self Care
[2024-10-01 23:43] VITALS: BP 127/89; PULSE 89; RESP 16; O2SAT 92
[2024-10-02] VITALS: BP 127/89; PULSE 89; RESP 16; TEMP 36.9; O2SAT 94
[2024-10-02 01:00] VITALS: BP 134/94; PULSE 83; RESP 18; O2SAT 94
[2024-10-02] MEDS: oxyCODONE 5 MG Tablet 10 MG PO (01:55)
[2024-10-02 02:32] LABS: Reflex Lactate? Y
== END 2024-10-02 01:58 | disposition home or self-care (01) ==
PROVIDERS: Emergency Provider Emergency Medicine; PCP Family Medicine; Visit Provider Emergency Medicine
DX: L03.031 Cellulitis of right toe (principal); I11.0 Hypertensive heart disease with heart failure; I50.22 Chronic systolic (congestive) heart failure; I42.0 Dilated cardiomyopathy; E11.9 Type 2 diabetes mellitus without complications; Z79.4 Long term (current) use of insulin; Z79.899 Other long term (current) drug therapy; Z79.84 Long term (current) use of oral hypoglycemic drugs
CPT/HCPCS: 73630; 80048; 83605; 85025; 86140; 96365; 96366; 96367; 96375; 96376; 99283; A4216; J2405